=== PATIENT | female | born 1960 | race African-American/Black ===

== ENCOUNTER 2017-01-07 19:36 | Inpatient (IN) ==
[2017-01-07] MEDS ORDERED: ASPIRIN PO STA (19:59)
--- NOTE | 2017-01-07 20:22 | Diag Imaging Result Doc PS360 ---
EXAM: CHEST-2 VIEWS HISTORY: CP TECHNIQUE: PA and lateral chest COMMENT: Compared to 04/27/2016 the heart size is increased and there is ill-defined opacity in the lower lobes particularly in the retrocardiac region and costophrenic angle on the left. This was not present on the previous study. There is fluid in the major fissures. IMPRESSION: Cardiomegaly with mild pulmonary edema versus pneumonia and pleural effusions. Electronically signed by Zhou Colon 01/07/2017 8:20 PM
[2017-01-07 20:59] LABS: MANUAL DIFF NEEDED? NO
[2017-01-07 21:04] LABS: BASO% 0.5 % (0.0-0.8); EOS# 0.04 X1000 (0.0-0.7); EOS% 0.7 % (0.0-10.0); HEMATOCRIT 39.8 % (37.0-47.0); HEMOGLOBIN 13.2 g/dL (12.0-16.0); LYMPH% 23.6 % (20.5-51.1); MCH 29.8 PG (27-31); MCHC 33.2 g/dL (33-37); MCV 89.8 FL (81-99); MONO# 0.48 X1000 (0.11-0.59); MONO% 8.7 % (1.7-9.3); NEUT% 66.5 % (42.2-75.2); PLT 196 X1000 (130-400); RBC 4.43 XMIL (4.2-5.4)
[2017-01-07 21:11] LABS: INR 1.27; PROTIME 13.5 Seconds (9.2-11.7); PTT 26.5 Seconds (22.0-36.0)
[2017-01-07 21:26] LABS: AGAP 17; ALKALINE PHOSPHATASE 216 U/L (32-104); BUN 18 mg/dL (8-22); CALCIUM 9.8 mg/dL (8.8-10.2); CHLORIDE 100 mmol/L (98-107); CK PROFILE 91 U/L (24-173); COSMO 282; GOT 67 U/L (10-30); GPT 91 U/L (10-36); POTASSIUM 4.7 mmol/L (3.5-5.1); SODIUM 140 mmol/L (136-145); TCO2 23 mmol/L (25-35); TOTAL BILIRUBIN 0.93 mg/dL (0.20-1.00); TOTAL PROTEIN 7.1 g/dL (6.3-8.3)
--- NOTE | 2017-01-07 21:39 | ED EKG INTERP ---
This chart was entered by Maria E Winters Scribe, acting as scribe for West Ascencio MD. EKG Interpretation - EKG Time of EKG reading by physician:: 19:37 EKG Read and Signed by:: West Ascencio EKG Interpretation (*Must complete 3 of following elements*): Normal Rate: 116 Rhythm: Sinus Tachycardia ST Wave: non-specific ST changes Comments: Abnormal ECG, pOSSIBLE left atrial enlargement Attestation - Physician/ JODY Attestation Patient care was provided by Advanced Practice Provider:: No The physician spent face to face time with patient:: Yes Advanced Practice Provider documentation review:: Supervising physician onsite and consulted in the evaluation and care of this patient. The physician did have a face to face encounter with the patient. This chart was documented by the indicated scribe, (Maria E Winters Scribe) and accurately reflects the services I performed and decisions made by me, West Ascencio MD, as attested by the provider's signature.
--- NOTE | 2017-01-07 22:34 | PROVIDER DOCUMENTATION ---
This chart was entered by Maria E Winters Scribe, acting as scribe for West Ascencio MD. HPI-Respiratory General - General Chief Complaint: Shortness of Breath Stated Complaint: CP/SOB Time Seen by Provider: 01/07/17 21:35 Source: patient Allergies/Adverse Reactions: Patient Allergies Allergy/AdvReac Type Severity Reaction Status Date / Time No Known Allergies Allergy Verified 01/07/17 20:40 Home Medications: Home Medication List Medication Instructions Recorded Confirmed Last Taken Type Methocarbamol 750 mg PO PRN PRN 11/01/15 01/07/17 01/07/17 09:00 History Naproxen Sodium [Aleve] 220 mg PO PRN PRN 11/01/15 01/07/17 01/07/17 09:00 History Hydrocodone/Acetaminophen [[place] 1 each PO Q4H PRN PRN #14 tablet 11/02/1501/07 Unknown Rx 7.5-325 Tablet] Furosemide [Lasix] 10 mg PO PRN PRN 01/07/17 01/07/17 01/07/17 10:00 History Losartan [Cozaar] 25 mg PO BID 01/07/17 01/07/17 01/07/17 09:00 History Potassium Chloride [Klor-Con M20] 20 meq PO PRN PRN 01/07/17 01/07/17 01/07/17 10:00 History - History of Present Illness-Resp Nature of Presenting Problem: 56 Y/O F presents to ED with SOB. Pt states that she began having chest pain about 2 days ago with increased pressure today, Pt states that she has midsternal pain with lower back pain. Denies any hx of blood clots and a heart attack. Pt states SOB, States decreased swallowing. Pt states she was diagnosed with CHF, and is on lasiks. Pt has rt side leg marked swelling. Pt states she has pressure in her chest, states that she can't lay down because she can't breath, and has to sit up. Pt states 7.5/10 pain. and states that she has a sore throat, with productive cough,and is having decreased swallowing. Quality of Pain: reports: pressure Severity in ED: reports: moderate, severe Onset/Duration: reports: 3 days ago Timing: reports: still present Cough Quality/Degree: reports: moderate, productive cough Modifying Factors: improves with: sitting upright. worse with: lying down Associated Symptoms: reports: chest pain/soreness, cough, shortness of breath, sore throat. denies: facial pain, fever/chills, headache, sweaty Review of Systems - Adult - REVIEW OF SYSTEMS - ADULT Constitutional: denies: chills, fever Eyes: reports: no symptoms reported Ears, Nose, Mouth & Throat: reports: throat pain Cardiovascular: reports: chest pain, edema Respiratory: reports: cough, shortness of breath Gastrointestinal: denies: abdominal pain, diarrhea, nausea, vomiting Genitourinary: reports: no symptoms reported Musculoskeletal: reports: no symptoms reported Integumentary: reports: no symptoms reported Neurological: reports: no symptoms reported Psychiatric: reports: no symptoms reported Endocrine: reports: no symptoms reported Hematologic/Lymphatic: reports: no symptoms reported Allergic/Immunologic: reports: no symptoms reported All Other Systems: Reviewed and Negative Past History - Adult - PAST MEDICAL HISTORY-ADULT Review of Records: reports: Old Records Reviewed, Nursing Assessment Review, Medications Reviewed, Social history reviewed & non-contributory. - SOCIAL HISTORY Smoking: non-smoker Substance Use: none/never Alcohol Use Frequency: never Living Situation: family Physical Exam-General - PHYSICAL EXAM-ADULT Initial Vital Signs Reviewed: Yes - CONSTITUTIONAL General Appearance: appears well, alert, no apparent distress - EYES Eyes: pink conjunctivae - HEAD, EARS, NOSE, MOUTH & THROAT HENMT: normocephalic/atraumatic, moist mucous membranes, normal ENT inspection, TMs normal, pharynx normal - NECK Neck: full range of motion, supple, normal inspection - RESPIRATORY Respiratory: chest non-tender, lungs clear, normal breath sounds - CARDIOVASCULAR Cardiovascular: tachycardia - GASTROINTESTINAL (ABDOMEN) Abdominal Exam: non tender, soft - LYMPHATIC Lymphatic: no adenopathy - MUSCULOSKELETAL Back Exam: normal inspection, no CVA tenderness, no vertebral tenderness Extremity: non-tender, pedal edema (right leg) - SKIN Integumentary: normal color, normal turgor, warm/dry - NEUROLOGIC Neurologic: em physician II-XII nml as tested - PSYCHIATRIC Psych/Mental Status: normal mood/affect, normal thought content, normal thought process, oriented x 3 Progress - PLAN OF CARE/RESULTS Progress/Plan/Lab Results: Vital Signs - 8 hr 01/07/17 19:49 Temperature 97.9 F Pulse Rate 114 H Respiratory Rate 22 Blood Pressure 153/102 O2 Sat by Pulse Oximetry 100 Laboratory Results - last 24 hr 01/07/17 01/07/17 01/07/17 20:28 20:28 20:28 WBC 5.50 RBC 4.43 Hgb 13.2 Hct 39.8 MCV 89.8 MCH 29.8 MCHC 33.2 RDW Std Deviation 13.9 Plt Count 196 MPV 12.0 H Immature Gran % (Auto) 0.0 Neut % (Auto) 66.5 Lymph % (Auto) 23.6 Miller % (Auto) 8.7 Eos % (Auto) 0.7 Baso % (Auto) 0.5 Immature Gran # (Auto) 0.00 Neut # (Auto) 3.65 Lymph # (Auto) 1.30 Miller # (Auto) 0.48 Eos # (Auto) 0.04 Baso # (Auto) 0.03 PT INR PTT (Actin FS) D-Dimer 1.00 H Sodium 140 Potassium 4.7 Chloride 100 Carbon Dioxide 23 L Anion Gap 17 BUN 18 Creatinine 0.8 Estimated GFR/1.73 m2 > 60 BUN/Creatinine Ratio 23 Glucose 113 H Calculated Osmolality 282 Calcium 9.8 Magnesium 2.0 Total Bilirubin 0.93 AST 67 H ALT 91 H Alkaline Phosphatase 216 H Creatine Kinase 91 Troponin T Tts-B-Yykwffleqjc Pept Total Protein 7.1 Albumin 4.0 Globulin 3.1 Albumin/Globulin Ratio 1.3 01/07/17 01/07/17 01/07/17 20:28 20:28 20:28 WBC RBC Hgb Hct MCV MCH MCHC RDW Std Deviation Plt Count MPV Immature Gran % (Auto) Neut % (Auto) Lymph % (Auto) Miller % (Auto) Eos % (Auto) Baso % (Auto) Immature Gran # (Auto) Neut # (Auto) Lymph # (Auto) Miller # (Auto) Eos # (Auto) Baso # (Auto) PT 13.5 H INR 1.27 PTT (Actin FS) 26.5 D-Dimer Sodium Potassium Chloride Carbon Dioxide Anion Gap BUN Creatinine Estimated GFR/1.73 m2 BUN/Creatinine Ratio Glucose Calculated Osmolality Calcium Magnesium Total Bilirubin AST ALT Alkaline Phosphatase Creatine Kinase Troponin T < 0.010 Akb-F-Aqjostgnmtf Pept 54754 H Total Protein Albumin Globulin Albumin/Globulin Ratio Orders Category Date Time Status Cardiac Monitoring DIRECTED Care 01/07/17 19:59 Active CHEST-2 VIEWS [RAD] Stat Exams 01/07/17 19:59 Completed CTA [CT ANGIOGRM/PULMONARY ARTERIES] [CT] Stat Exams 01/07/17 21:39 Taken CBC WITH ELECTRONIC DIFF [HEME] Stat Lab 01/07/17 20:28 Completed CK PROFILE [SP CHEM] Stat Lab 01/07/17 20:28 Completed COMPREHENSIVE METABOLIC PANEL [CHEM] Stat Lab 01/07/17 20:28 Completed D-DIMER [CHEM] Stat Lab 01/07/17 20:28 Completed MAGNESIUM [CHEM] Stat Lab 01/07/17 20:28 Completed PRO B-NATRIURETIC PEPTIDE Stat Lab 01/07/17 20:28 Completed PROTIME WITH INR [COAG] Stat Lab 01/07/17 20:28 Completed PTT [COAG] Stat Lab 01/07/17 20:28 Completed TROPONIN T Stat Lab 01/07/17 20:28 Completed Aspirin Med 01/07/17 19:59 Discontinued 325 mg PO STAT STA Enoxaparin [Lovenox] Med 01/07/17 23:41 Discontinued 75 mg SUBQ NOW ONE EKG [EKG] Stat Ther 01/07/17 19:39 Ordered Result Diagrams: 01/07/17 20:28 01/07/17 20:28 - XRAY 1 XRAY Study: Chest Impression: Abnormal XRAY Interpretation: cardiomegaly with mild pulmonary edema versus pneumonia & pleural effusions - CT/MRI 1 CT Study: Angiogram Impression: Normal (1. no pulmonary embolism 2. left lower lobe atelectasis with possible early pneumonia 3. small left and very small right pleural effusions) CT Results: See Notes - CONSULTS/PCP/HOSPITALIST Notification #1 *Consult/PCP/Hospitalist*: Time Discussed: 00:22 Reason/Comments: Admit Consult Disposition: Admit (Admit Accepted) Departure - Departure Date of Disposition Decision: 01/08/17 Time of Disposition Decision: 00:27 DIAGNOSIS: Elevated d-dimer Chest pain Qualifiers: Chest pain type: unspecified Qualified Code(s): R07.9 - Chest pain, unspecified Disposition: ADMITTED INPATIENT 09 Certified Medical Emergency: Emergent Condition: Stable Referrals and Follow-Ups: Yoav Marsh MD [Primary Care Provider] - - Critical Care Note This patient required my direct & personal management of CC.: No Attestation - Physician/ JODY Attestation Patient care was provided by Advanced Practice Provider:: No The physician spent face to face time with patient:: Yes Advanced Practice Provider documentation review:: Supervising physician onsite and consulted in the evaluation and care of this patient. The physician did have a face to face encounter with the patient. This chart was documented by the indicated scribe, (Maria E Winters Scribe) and accurately reflects the services I performed and decisions made by me, West Ascencio MD, as attested by the provider's signature.
[2017-01-07] MEDS ORDERED: LOVENOX SUBQ ONE (23:41)
[2017-01-08] MEDS ORDERED: LASIX IV ONE (00:59)
--- NOTE | 2017-01-08 01:49 | HISTORY AND PHYSICAL ---
REASON FOR ADMISSION: Three week history of increasing dyspnea and two day history of leg swelling and chest pain. HISTORY OF PRESENT ILLNESS: Ms. Jesusita Soria is a 56-year-old lady with past medical history of breast cancer status post bilateral mastectomy and hypertension. MUGA scan was last done in anticipation I believe for chemotherapy and was found to be 17%. She reports that she is followed by Dr. Jade who recently stated her, i.e. 2 weeks ago, on Lasix p.r.n. 20 mg daily. She said initially she got good results from this since it helped decrease her ongoing lower extremity swelling. However, over the last 1 week, this leg swelling has returned. However, what has been bothering her the most is that she has been having a 3 week history of worsening dyspnea initially on exertion but now at rest. She could walk 50 feet 3 weeks ago, but now she can barely go up to 20 feet and becomes profoundly short of breath. She also volunteers a history of PND and orthopnea along with a 2 day history of coughing which is nonproductive. No fever. No chills. She also reports complaints of easy satiety with even small amounts of food. She has a subjective sensation of bloating and abdominal swelling. She states the chest pain she has emanates from her back and radiates to her chest and lasts a few minutes, not related to any activity. The patient does not ingest canned food or drink soda but does take Aleve twice a day for the last few days for back pain. REVIEW OF SYSTEMS: The patient denies any constipation or diarrhea. No genitourinary complaints. No arthralgias or rash. No polyuria or polydipsia. No focal deficits appreciated. Positive findings per HPI. ALLERGIES: No known allergies. MEDICATIONS: 1. Losartan 25 mg daily. 2. Lasix 20 mg daily p.r.n. 3. Aleve 220 mg b.i.d. p.r.n. 4. Methocarbamol 750 mg b.i.d. p.r.n. PAST SURGICAL HISTORY: 1. Hysterectomy. 2. Bilateral mastectomy. 3. [employer] placement. SOCIAL HISTORY: She does not smoke. Drinks alcohol very occasionally, no more than once a month. No history of drug abuse. She is . FAMILY HISTORY: Significant for hypertension but no heart disease, type 2 diabetes, or breast cancer. LABORATORY DATA: EKG showed normal sinus rhythm with T wave inversions in the lateral leads, left axis deviation, left atrial enlargement, no gross ST-T wave changes consistent with acute injury pattern or myocardial ischemia. White count 5000, hemoglobin and hematocrit 13 and 39, platelets 196 with normal differential. BUN 18, creatinine 0.8, glucose 113, AST 67, ALT 91, alkaline phosphatase 210. Troponin negative. CK is normal. ProBNP 10,000. PT and PTT normal. D-dimer 1.0. Angiogram was negative for any PE. Chest x-ray showed mild increased vascular congestion. PHYSICAL EXAMINATION: VITAL SIGNS: Heart rate 114, temperature is 97.9, respiratory rate 20, blood pressure 153/102, 100% on 2 L. GENERAL: She is a pleasant middle-aged female woman who is not in acute distress. She is alert and oriented to person, place, and time with normal mood and affect. HEENT: Head is normocephalic, atraumatic. Eyes: PHILIP, EOMI. She is anicteric, not pale. ENT exam is grossly normal. NECK: Supple. No JVD or positive hepatojugular reflux. No bruit. No thyromegaly. CHEST: Bibasilar crepitations noted. No wheezes but decreased air entry in the bases. CARDIOVASCULAR: First and second heart sounds heard. No gallops, murmurs, rubs. Rhythm is regular. ABDOMEN: Slightly protuberant, soft, nontender. No masses or megaly. Bowel sounds are hypoactive. RECTAL: Not done at this time. EXTREMITIES: She has 1+ pedal edema to the midshin of both lower extremities. Pulses distally in all extremities are intact with good volume and symmetry. NEUROLOGICAL: No focal deficits appreciated. SKIN: Intact. No breakdown or erythema. MUSCULAR EXAM: Grossly normal. ASSESSMENT: 1. Acute systolic heart failure. 2. Passive venous congestion. 3. Hypertensive heart disease. PLAN: 1. At this time, the patient will be admitted and diuresed. 2. Consult Dr. Jade, sales and retail management recruiter, to see her. 3. Suspect she will need optimization of her ARB and I have taken the liberty of starting her on Aldactone and a very low dose beta-blockers which can be started at a much later date when she is out of the acute phase of her illness. 4. No particular inciting etiology for her exacerbation except for the poorly controlled hypertension. 5. For now, I will hold off ordering an echocardiogram being that she had a MUGA scan done in December. Will defer to Dr. Jade if he needs one done. Not sure if the patient's cardiomyopathy may be related to underlying exposure to chemotherapy or radiation therapy. This cannot be accurately determined from my history. cc: Girma Ontiveros MD
[2017-01-08] MEDS ORDERED: ZOFRAN IV PRN (02:03)
[2017-01-08] MEDS ORDERED: NORCO-7.5 PO PRN (02:03)
[2017-01-08] MEDS ORDERED: LASIX PO SCH (02:03)
[2017-01-08] MEDS ORDERED: TYLENOL PO PRN (02:03)
--- NOTE | 2017-01-08 05:47 | EKG Report ---
Test Performed on : 01/07/2017 7:37:20 PM Test Reason : cp Blood Pressure : / mmHG Vent. Rate : 116 BPM Atrial Rate : 116 BPM P-R Int : 142 ms QRS Dur : 074 ms QT Int : 330 ms P-R-T Axes : 055 001 122 degrees QTc Int : 458 ms Sinus tachycardia. Possible Left atrial enlargement Nonspecific T wave abnormality Abnormal ECG When compared with ECG of 27-APR-2016 09:53, Vent. rate has increased BY 42 BPM Unconfirmed Result
[2017-01-08 06:56] LABS: AGAP 16; BUN 17 mg/dL (8-22); CALCIUM 9.6 mg/dL (8.8-10.2); CHLORIDE 101 mmol/L (98-107); COSMO 289; POTASSIUM 3.7 mmol/L (3.5-5.1); SODIUM 145 mmol/L (136-145); TCO2 28 mmol/L (25-35)
--- NOTE | 2017-01-08 07:26 | Diag Imaging Result Doc PS360 ---
CT ANGIOGRM/PULMONARY ARTERIES - 01/07/2017 INDICATION: cp,tachycardia,elevated d-dimer TECHNIQUE: Axial CT images were obtained after administering intravenous contrast. Coronal MIP images were generated. A CT dose reduction protocol was used. COMPARISON: None FINDINGS: There is no pulmonary embolism. There is moderately severe cardiomegaly. There are trace pleural effusions. There is some patchy groundglass central opacity compatible with pulmonary edema. There is also some infiltrate in the left lower lobe. There is reflux into the IVC indicating right heart dysfunction. There is a right central line present as well as breast implants. There are moderate degenerative changes of the spine. No acute or suspicious bony lesion. IMPRESSION: 1. Negative for pulmonary embolism. 2. Cardiomegaly, pulmonary edema, pleural effusions. 3. Left lower lobe infiltrate suggesting pneumonia or edema. Electronically signed by Adam Briceño 01/08/2017 7:23 AM
[2017-01-08] MEDS: KLOR-CON PO SCH (10:59)
[2017-01-08] MEDS: COZAAR PO SCH ×2 (10:59→20:48)
[2017-01-08] MEDS: COREG PO SCH ×2 (11:00→11:09)
[2017-01-08] MEDS: ALDACTONE PO SCH (11:00)
--- NOTE | 2017-01-08 12:11 | CONSULTATION ---
DATE OF CONSULTATION: 01/08/2017 IMPRESSION: 1. Acute on chronic systolic heart failure, biventricular. 2. Severe nonischemic cardiomyopathy following chemotherapy for breast cancer. 3. Breast cancer involving the right breast. Patient is status post bilateral mastectomy and lymph node dissection on the right followed by chemotherapy. The patient felt to be in remission and has already had reconstructive breast surgery. 4. Hypertension. RECOMMENDATIONS: 1. Diurese with intravenous Lasix. 2. Switch Coreg to metoprolol given tendency for lower blood pressure with the former. 3. Continue losartan as tolerated. 4. Patient counseled regarding need for restriction of salt intake as well as daily weights and frequent contact with our office. HISTORY: This 56-year-old female with past history of severe nonischemic cardiomyopathy following chemotherapy for breast cancer, breast cancer and bilateral mastectomy and right axillary lymph node dissection, and hypertension was admitted with progressive dyspnea and orthopnea as well as peripheral swelling. She was found to have congestive heart failure and for this reason, Cardiology consultation was requested. She is followed by Dr. Jade in Cardiology clinic. She has intermittently had some tendency for lower extremity edema over the previous few weeks. Over the past 2-3 day she started to have progressive exertional dyspnea and orthopnea as well as worsening edema. She has had no chest pain. Previous noninvasive evaluations for coronary disease have been negative. Left ventricular ejection fraction has been severely reduced and last ejection fraction was 17%. She has not been consistent restricting her sodium intake. She recalls having some [place] food over this past weekend. She has also had tendency for abdominal bloating and anorexia simultaneous with her tendency for swelling. PAST MEDICAL HISTORY: 1. Severe nonischemic cardiomyopathy following chemotherapy. 2. Breast cancer. Patient is status post bilateral mastectomy and right axillary lymph node dissection followed by chemotherapy. She is felt to be in remission and has already had bilateral reconstructive breast surgery. 3. Hypertension. PAST SURGICAL HISTORY: Also includes hysterectomy. MEDICATIONS PRIOR TO ADMISSION: As listed. SOCIAL HISTORY: She is . She lives at home. She does not smoke. She does not use alcohol. She has applied for and gotten disability with social security on a cardiac basis. FAMILY HISTORY: Positive for hypertension and diabetes with negative for premature coronary disease. REVIEW OF SYSTEMS: Pulmonary: Noteworthy for exertional dyspnea and orthopnea. Gastrointestinal: Noteworthy for anorexia. Has some abdominal bloating paralleling her tendency for peripheral swelling. Constitutional: Noteworthy for weight gain but otherwise negative. Remained of review of systems negative/noncontributory with 14 total systems reviewed. PHYSICAL EXAMINATION: General: This is a pleasant, middle-aged -[place] female in no distress. Blood pressure 139/98. Heart rate 102 and regular. HEENT: Extraocular movements intact. Mucous membranes are moist. Neck: Supple. Jugular distention is evident to the angle of the jaw with patient sitting up about 70 degrees. Carotid bruits cannot be appreciated. Chest: Auscultation of the chest reveals bibasilar inspiratory crackles. Cardiac Exam: Reveals a regular tachycardia without appreciable gallop. There is a soft systolic murmur at the left sternal border. Abdomen: Soft, nontender. Bowel sounds are normal. Extremities: Demonstrate only very mild edema following diuresis thus far. Neurologic Exam: Reveals her to be alert, fully oriented. Speech is fluent. Moves all 4 extremities equally well. Skin: Warm dry. Psychiatric: Reveals her mood to be appropriate. ECG demonstrates sinus tachycardia, left atrial abnormality and nonspecific T-wave abnormality. cc: Andrzej Aggarwal MD
[2017-01-08] MEDS: LASIX IV SCH (20:48)
[2017-01-09] MEDS: LOVENOX SUBQ SCH (06:26)
[2017-01-09 06:44] LABS: MANUAL DIFF NEEDED? NO
[2017-01-09 06:47] LABS: BASO% 0.6 % (0.0-0.8); EOS% 2.1 % (0.0-10.0); HEMATOCRIT 40.6 % (37.0-47.0); HEMOGLOBIN 13.3 g/dL (12.0-16.0); LYMPH# 1.21 X1000 (1.2-3.4); LYMPH% 25.3 % (20.5-51.1); MCH 29.3 PG (27-31); MCHC 32.8 g/dL (33-37); MCV 89.4 FL (81-99); MONO# 0.39 X1000 (0.11-0.59); MONO% 8.1 % (1.7-9.3); MPV 11.6 FL (7.4-10.4); NEUT% 63.9 % (42.2-75.2); PLT 187 X1000 (130-400); RBC 4.54 XMIL (4.2-5.4)
--- NOTE | 2017-01-09 07:21 | EKG Report ---
Test Performed on : 01/09/2017 06:25:52 AM Test Reason : dyspnea Blood Pressure : / mmHG Vent. Rate : 093 BPM Atrial Rate : 093 BPM P-R Int : 150 ms QRS Dur : 082 ms QT Int : 378 ms P-R-T Axes : 044 -05 076 degrees QTc Int : 469 ms Normal sinus rhythm. Left atrial enlargement Left ventricular hypertrophy Nonspecific T wave abnormality Prolonged QT Abnormal ECG When compared with ECG of 07-JAN-2017 19:37, No significant change was found Confirmed by Reagan Hinds MD ([id number]) on 01/09/2017 9:34:35 PM
[2017-01-09 07:32] LABS: AGAP 14; BUN 20 mg/dL (8-22); CALCIUM 9.1 mg/dL (8.8-10.2); CHLORIDE 100 mmol/L (98-107); COSMO 287; MAGNESIUM 1.8 mg/dL (1.5-2.7); POTASSIUM 3.7 mmol/L (3.5-5.1); SODIUM 143 mmol/L (136-145); TCO2 29 mmol/L (25-35)
--- NOTE | 2017-01-09 08:15 | Diag Imaging Result Doc PS360 ---
EXAM: CHEST-2 VIEWS HISTORY: Heart Failure TECHNIQUE: Two views of the chest COMMENT: There is blunting of the left costophrenic angle. Compared to the previous study of 01/07/2017 there is slight clearing of the left lower lobe and of the right lower lobe. IMPRESSION: Improved bibasilar atelectasis. Left pleural effusion. Borderline cardiomegaly. Electronically signed by Zhou Colon 01/09/2017 8:13 AM
[2017-01-09] MEDS: KLOR-CON PO SCH (09:02)
[2017-01-09] MEDS: ALDACTONE PO SCH (09:02)
[2017-01-09] MEDS: LASIX IV SCH ×2 (09:03→20:33)
[2017-01-09] MEDS: TOPROL XL PO SCH (09:03)
[2017-01-09] MEDS: COZAAR PO SCH ×2 (09:03→20:32)
--- NOTE | 2017-01-09 15:46 | PROGRESS NOTE ---
DATE: 01/09/2017 SUBJECTIVE: Patient continues without dyspnea on supplemental oxygen per nasal cannula at 2 L/minute. There has been no chest pain. OBJECTIVE: Vital Signs: Blood pressure 114/65 with heart rate of 103, oxygen saturation 99% on nasal cannula oxygen at 2 L. Jugular venous distention is present consistent with moderately elevated central venous pressure. Chest is clear to auscultation. Cardiac reveals a regular rate and rhythm without appreciable murmur or gallop. There is no evidence of peripheral edema. LABORATORY DATA: Demonstrates BUN of 20, creatinine 0.7, potassium 3.7. IMPRESSION: 1. Izpvd-up-[id number] systolic heart failure, biventricular. The patient is improving with diuresis but still manifests some residual signs of right-sided congestive heart failure. 2. Severe nonischemic cardiomyopathy following chemotherapy. 3. Breast cancer involving the right breast with previous bilateral mastectomy and right-sided lymph node dissection. 4. Hypertension. RECOMMENDATIONS: Continue to diurese with intravenous Lasix. Anticipate patient potentially nearing euvolemic state in the next 24 hours. cc: Andrzej Aggarwal MD
[2017-01-10 06:49] LABS: AGAP 12; BUN 23 mg/dL (8-22); CALCIUM 9.1 mg/dL (8.8-10.2); CHLORIDE 101 mmol/L (98-107); COSMO 286; POTASSIUM 3.9 mmol/L (3.5-5.1); SODIUM 142 mmol/L (136-145); TCO2 29 mmol/L (25-35)
[2017-01-10 07:50] VITALS: BP 109/84
[2017-01-10] MEDS: KLOR-CON PO SCH (10:06)
[2017-01-10] MEDS: COZAAR PO SCH (10:06)
[2017-01-10] MEDS: ALDACTONE PO SCH (10:06)
[2017-01-10] MEDS: TOPROL XL PO SCH (10:07)
[2017-01-10] MEDS: LOVENOX SUBQ SCH (10:07)
[2017-01-10] MEDS: LASIX IV SCH (10:07)
[2017-01-10] MEDS ORDERED: LASIX PO SCH (21:00)
--- NOTE | 2017-01-11 14:26 | DISCHARGE SUMMARY ---
ADMISSION DATE: 01/07/2017 DISCHARGE DATE: 01/10/2017 CONSULTATIONS: Dr. Andrzej Aggarwal with Cardiology. PERTINENT PROCEDURES: 1. Pulmonary arteriogram. Negative for PE, cardiomegaly, pulmonary edema, pleural effusions, left lower lobe infiltrate suggesting pneumonia or edema. 2. Chest x-ray showed cardiomegaly with mild pulmonary edema versus pneumonia and pleural effusion. 3. Followup chest x-ray on 01/09 showed improved bibasilar atelectasis, left pleural effusion, borderline cardiomegaly. DISCHARGE DIAGNOSES: 1. Acute on chronic systolic heart failure biventricular improved with IV diuresis. The patient will continue on p.o. Lasix, losartan and switch from Coreg to metoprolol and will continue on Aldactone. She has been educated on a low-sodium diet as well as following closely with Cardiology and monitoring of her weights. She is stable for discharge home today. 2. Severe nonischemic cardiomyopathy following her chemotherapy. 3. Breast cancer involving the right breast status post bilateral mastectomy and lymph node dissection on the right following chemotherapy. She is in remission and has also had reconstructive breast surgery. 4. Hypertension. Stable. HOSPITAL COURSE: Ms. Soria is a 56-year-old, female who carries a past medical history of breast cancer, status post bilateral mastectomy with lymph node resection on the right as well as reconstructive surgery followed up with chemotherapy that caused nonischemic cardiomyopathy, hypertension, recent MUGA scan was found to be 70%. She is followed by Dr. Jade in the clinic who placed her on Lasix p.r.n. 20 mg daily. She states she initially had good results and decreased her ongoing lower extremity swelling. However over the last week her leg swelling had returned as well as having a 3-week history of worsening dyspnea initially on exertion but now at rest. She could walk about 50 feet three weeks ago but now she can barely go 20 feet before she becomes profoundly short of breath. She also reports PND and orthopnea with a 2-day history of coughing that is nonproductive. No fever. No chills. Complaints of satiety with even small amounts of food, sensation of bloating and abdominal swelling. She states she does not ingest canned food or drink soda but she had taken Aleve twice a day for the last few days for back pain and she had also disclosed to Cardiology that she had some [place] food over the past weekend. Laboratory data in the ED showed a white count of 5000, hemoglobin of 13 and 39, BUN of 18, creatinine 0.8, blood glucose of 113. Troponins were negative. ProBNP was 10,000. D- dimer was 1. Pulmonary arteriogram was negative for PE but did show pulmonary edema and questionable infiltrates. The patient was admitted for acute systolic heart failure. She was diuresed. Consult to Cardiology. Started her on Aldactone as well as a low- dose beta jodie. Cardiology agreed with diuresis with IV Lasix. Switched from Coreg to metoprolol. Continued her losartan and counseled her regarding the need for restriction of salt intake as well as daily weights and frequent contact with their office. Ms. Soria diuresed well. She was off her supplemental O2. I do not have any proper I's and O's. I have some intake and just the amount of times that she has voided but nothing has been measured on her output. She is being discharged back home today. VITAL SIGNS: Temperature is 97.6 degrees, heart rate 95, respirations 18, blood pressure 109/84. O2 is 99% on room air. DISCHARGE DIET: Healthy heart. DISCHARGE MEDICATIONS: 1. Lasix 20 mg p.o. b.i.d. 2. [place] 7.5/325, 1 each p.o. q.4 hours p.r.n. 3. Cozaar 25 mg p.o. b.i.d. 4. Methocarbamol 750 mg p.o. p.r.n. 5. Toprol-XL 25 mg p.o. daily. 6. Aldactone 12.5 mg p.o. daily. FOLLOWUP: Ms. Soria is being discharged back home. She will need to follow up with her primary care physician, Dr. Yoav Marsh in [address] Jade in 1 week. She is to take all medications as prescribed as well as monitor her weights daily and restrict her sodium intake. She can return to the ED for any worsening of symptoms. Dictated by MICHEAL Barraza for Leonel Shoemaker MD cc: Leonel Shoemaker MD Time spent for discharge 32 minutes MTDD
== END 2017-01-10 14:29 | disposition home or self-care (01) ==
LOC: ED 19:36 → SUATTDRO 01-08 01:48 → 3N 01-08 01:48
PROVIDERS: ATTEND Internal Medicine

== ENCOUNTER 2018-10-30 01:35 | Inpatient (IN) ==
[2018-10-30 04:03] LABS: INR 1.02; PROTIME 14.2 Seconds (11.0-16.0); PTT 37.4 Seconds (22.3-41.8)
--- NOTE | 2018-10-30 04:04 | PROVIDER DOCUMENTATION ---
HPI-General Adult - General Chief Complaint: General Adult Stated Complaint: CHEST PAIN/HISTORY Time Seen by Provider: 10/30/18 03:20 Source: patient, family Allergies/Adverse Reactions: Patient Allergies Allergy/AdvReac Type Severity Reaction Status Date / Time adhesive tape Allergy Intermediate blisters Verified 10/30/18 06:07 skin Home Medications: Home Medication List Medication Instructions Recorded Confirmed Last Taken Type Hydrocodone/Acetaminophen [[place] 1 each PO Q4H PRN PRN #14 tablet 11/02/15 10/30/18 2 Weeks Ago Rx 7.5-325 Tablet] ~10/16/18 Losartan [Cozaar] 25 mg PO BID 01/07/17 10/30/18 1 Week Ago History ~10/23/18 Metoprolol Succinate E.r. [Toprol 25 mg PO DAILY #60 tablet 01/10/17 10/30/18 1 Week Ago Rx Xl] ~10/23/18 Cyclobenzaprine HCl [Flexeril] 5 mg PO Q6H PRN PRN 10/30/18 10/30/18 10/29/18 History Spironolactone [Aldactone] 12.5 mg PO DAILY PRN PRN 10/30/18 10/30/18 Unknown History - History of Present Illness -Gen Adult Nature of Presenting Problems: began having intermittent sharp, pressure CP, that radiated to back on Saturday after receiving chemo for breast CA with lung mets. Nothing causes onset, no makes it worse, relieved when takes muscle relaxers, No NATALIA, no nausea. Last pm, had onset of bleeding L post upper gum, but no toothache. No fever. Receiving Taxotere and avastin Location of Pain/Injury: reports: chest Review of Systems - Adult - REVIEW OF SYSTEMS - ADULT Constitutional: reports: no symptoms reported Eyes: reports: no symptoms reported Ears, Nose, Mouth & Throat: reports: see HPI Cardiovascular: reports: see HPI Respiratory: reports: no symptoms reported Gastrointestinal: reports: no symptoms reported Genitourinary: reports: no symptoms reported Musculoskeletal: reports: no symptoms reported Integumentary: reports: no symptoms reported Neurological: reports: no symptoms reported Psychiatric: reports: no symptoms reported Endocrine: reports: no symptoms reported Hematologic/Lymphatic: reports: no symptoms reported Allergic/Immunologic: reports: no symptoms reported Past History - Adult - PAST MEDICAL HISTORY-ADULT Review of Records: reports: Medications Reviewed Major Childhood Illnesses: reports: denies history Cardiovascular: reports: HTN Respiratory: reports: other (lung CA) Gastrointestinal: reports: denies history Musculoskeletal: reports: denies history Neurological: reports: denies history Psychiatric: reports: denies history Endocrine/Immune: reports: denies history Additional History: Breast CA Physical Exam-General - PHYSICAL EXAM-ADULT Initial Vital Signs Reviewed: Yes - CONSTITUTIONAL General Appearance: appears well, alert, no apparent distress - EYES Eyes: PERRL/EOMI, pink conjunctivae - HEAD, EARS, NOSE, MOUTH & THROAT HENMT: other (bleeding from gum tooth # 15) - NECK Neck: non-tender, full range of motion, supple, normal inspection - RESPIRATORY Respiratory: chest non-tender, lungs clear, normal breath sounds - CARDIOVASCULAR Cardiovascular: normal peripheral pulses, regular rate, rhythm, no edema - GASTROINTESTINAL (ABDOMEN) Abdominal Exam: non tender, soft - MUSCULOSKELETAL Back Exam: normal inspection, no CVA tenderness, no vertebral tenderness, decreased range of motion Extremity: normal range of motion, non-tender, normal inspection - SKIN Integumentary: normal color, normal turgor, warm/dry - NEUROLOGIC 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, grossly normal, no motor/sensory deficits - PSYCHIATRIC Psych/Mental Status: normal mood/affect, normal thought content, normal thought process, oriented x 3 Progress - PLAN OF CARE/RESULTS Progress/Plan/Lab Results: Vital Signs - 8 hr 10/30/18 01:35 Temperature 98.6 F Pulse Rate 109 H Respiratory Rate 19 Blood Pressure 142/77 O2 Sat by Pulse Oximetry 96 Orders Category Date Time Status CBC WITH DIFF [HEME] Stat Lab 10/30/18 03:35 Results COMPREHENSIVE METABOLIC PANEL [CHEM] Stat Lab 10/30/18 03:35 Received PT [PROTIME WITH INR] [COAG] Stat Lab 10/30/18 03:35 Received PTT [COAG] Stat Lab 10/30/18 03:35 Received Result Diagrams: 10/30/18 03:35 10/30/18 03:35 - REASSESSMENT Reassessment #1 Time Reassessed: 06:42 ( has gone home, retrieved her labs from 10/21. At that time WBC was 11.2) - EKG 1 Time of EKG reading by physician:: 01:47 EKG Read and Signed by:: Dawood Guzman EKG Interpretation (*Must complete 3 of following elements*): Abnormal Rate: 112 Rhythm: NSR QRS: LVH ST Wave: non-specific ST changes - XRAY 1 XRAY Study: Chest Impression: Normal - CONSULTS/PCP/HOSPITALIST Notification #1 *Consult/PCP/Hospitalist*: [place] Time Discussed: 07:32 Departure - Departure Date of Disposition Decision: 10/30/18 Time of Disposition Decision: 07:32 DIAGNOSIS: Leukocytosis Qualifiers: Leukocytosis type: unspecified Qualified Code(s): D72.829 - Elevated white blood cell count, unspecified Chest pain Qualifiers: Chest pain type: unspecified Qualified Code(s): R07.9 - Chest pain, unspecified Disposition: ADMITTED INPATIENT 09 Certified Medical Emergency: Emergent Condition: Good Referrals and Follow-Ups: Malcolm Hinds MD [Primary Care Provider] - - Critical Care Note This patient required my direct & personal management of CC.: No Attestation - Physician/ JODY Attestation Patient care was provided by Advanced Practice Provider:: No The physician spent face to face time with patient:: Yes Advanced Practice Provider documentation review:: Supervising physician onsite and consulted in the evaluation and care of this patient. The physician did have a face to face encounter with the patient.
[2018-10-30 04:12] LABS: AGAP 14; ALB/GLOB RATIO 1.1; ALBUMIN 4.2 g/dL (3.5-5.0); ALKALINE PHOSPHATASE 329 U/L (32-104); BUN 10 mg/dL (8-22); CALCIUM 11.1 mg/dL (8.8-10.2); CHLORIDE 101 mmol/L (98-107); COSMO 283; CREATININE 0.6 mg/dL (0.5-0.9); ESTIMATED GFR > 60; GLUCOSE 113 mg/dL (70-104); GOT 28 U/L (10-30); GPT 38 U/L (10-36); POTASSIUM 3.8 mmol/L (3.5-5.1); SODIUM 142 mmol/L (136-145); TCO2 27 mmol/L (25-35); TOTAL BILIRUBIN 0.18 mg/dL (0.20-1.00); TOTAL PROTEIN 8.1 g/dL (6.3-8.3)
[2018-10-30 04:22] LABS: BASO# 0.09 X1000 (0.0-0.2); BASO% 0.2 % (0.0-0.8); EOS# 0.08 X1000 (0.0-0.7); EOS% 0.2 % (0.0-10.0); HEMATOCRIT 35.6 % (37.0-47.0); HEMOGLOBIN 11.1 g/dL (12.0-16.0); IMM GRAN# 0.76 X1000 (0.0-0.04); IMM GRAN% 1.8 % (0.0-0.5); LYMPH# 3.11 X1000 (1.2-3.4); LYMPH% 7.5 % (20.5-51.1); MCH 28.7 PG (27-31); MCHC 31.2 g/dL (33-37); MONO# 2.37 X1000 (0.11-0.59); MONO% 5.7 % (1.7-9.3); MPV 9.9 FL (7.4-10.4); NEUT# 35.24 X1000 (1.4-6.5); NEUT% 84.6 % (42.2-75.2); PLT 289 X1000 (130-400); RBC 3.87 XMIL (4.2-5.4); RDW 15.3 % (11.5-14.5); WBC 41.65 X1000 (4.8-10.8)
[2018-10-30 04:48] LABS: LYMPHS 8 % (21-51); MONO 7 % (1-9); SEGS 85 % (42-75)
[2018-10-30] MEDS ORDERED: EMLA CREAM ONE (06:00)
--- NOTE | 2018-10-30 07:24 | Diag Imaging Result Doc PS360 ---
EXAM: CHEST-2 VIEWS INDICATION: cp TECHNIQUE: 2 views COMPARISON: 07/21/2018 FINDINGS: The right chest port is in stable position. There is contrast media in the colon from a prior study. The lungs are grossly clear. There is no discrete pleural fluid collection or pneumothorax. The cardiomediastinal silhouette and central vasculature are grossly unremarkable. IMPRESSION: No evidence of acute pathology by plain radiograph. Electronically signed by Isra Stevenson 10/30/2018 7:21 AM
--- NOTE | 2018-10-30 08:00 | EKG Report ---
Test Performed on : 10/30/2018 01:42:03 AM Test Reason : ED. NOEKG ORDER FOR MUSE Blood Pressure : / mmHG Vent. Rate : 112 BPM Atrial Rate : 112 BPM P-R Int : 162 ms QRS Dur : 084 ms QT Int : 358 ms P-R-T Axes : 049 -07 121 degrees QTc Int : 488 ms Sinus tachycardia. Possible Left atrial enlargement Left ventricular hypertrophy Nonspecific ST and T wave abnormality Abnormal ECG When compared with ECG of 09-JAN-2017 06:25, No significant change was found Unconfirmed Result
[2018-10-30 08:08] LABS: URINE SOURCE CLEAN CATCH
[2018-10-30 08:10] LABS: BILIRUBIN URINE NEGATIVE (NEGATIVE); BLOOD URINE NEGATIVE (NEGATIVE); COLOR YELLOW; GLUCOSE URINE NEGATIVE (NEGATIVE); KETONE URINE NEGATIVE (NEGATIVE); LEUKOCYTES URINE NEGATIVE (NEGATIVE); NITRITE URINE NEGATIVE (NEGATIVE); PH URINE 6.5; PROTEIN URINE NEGATIVE (NEGATIVE); SP GRAVITY URINE 1.012; TURBIDITY URINE CLEAR (CLEAR); UROBILINOGEN URINE NORMAL (NORMAL)
[2018-10-30 08:12] LABS: UR EPITHELIAL CELLS <10 /HPF (<10); URINE BACTERIA NEGATIVE /HPF; URINE RBC <10 /HPF (<10); URINE WBC <10 /HPF (<10)
[2018-10-30] MEDS ORDERED: FLEXERIL PO PRN (09:04)
[2018-10-30] MEDS ORDERED: ZOFRAN IV PRN (09:04)
--- NOTE | 2018-10-30 09:29 | HISTORY AND PHYSICAL ---
PRIMARY CARE PROVIDER: Dr. Malcolm Hinds. ONCOLOGIST: Dr. Jesse Dietz. CHIEF COMPLAINT: Chest pain and gum bleeding. HISTORY OF PRESENT ILLNESS: Ms. Soria is a pleasant 56-year-old female, who carries a past medical history of breast cancer status post bilateral mastectomy, who recently found out in July or August she was diagnosed with metastatic lung cancer. She was started back on chemo I believe in September. She finished her first cycle and just wrapped up her second cycle on October 21. She received a Neulasta shot. She has reported an epigastric type chest pain that radiates to her back that has been intermittent since she was started back on chemo. The only thing that makes it go away is a Goody Powder and muscle relaxer. She had 1 episode where it radiated up into her right neck and into her right arm that she felt like something was going on with her port at that time. She does have some shortness of breath with it, but denied any dizziness, nausea or vomiting. She also reported some right lower extremity pain. She knows she has neuropathy in that leg. However, she states this is a cramping type pain that has to be relieved with walking around. Constipation. Occasional headache. She denies any fever, chills. Intermittent cough that can be anywhere from clean to greenish sputum. She also reported last night an episode of bleeding gum that was stopped in the ED and is currently packed around tooth #15. Workup in the ED revealed an elevated white count of 41 with a normal lactate. Her urinalysis is clear. Her chest x-ray was clear. Blood cultures have been obtained. We have no obvious source of infection. We did check a D-dimer; it is slightly elevated. Given her chest pain and right leg pain, we will go ahead and check a CT of the chest, as well as venous Dopplers and a right upper extremity Doppler to rule out any DVT or PE, and we will prophylactically start her on cefepime, and consult Dr. Dietz and place her in a private room. REVIEW OF SYSTEMS: Twelve-point review of systems completely negative, except for those mentioned in HPI. PAST MEDICAL HISTORY: 1. Breast cancer status post bilateral mastectomy. 2. Hypertension. 3. Newly diagnosed with metastatic lung cancer. 4. Acute on chronic systolic heart failure, biventricular. 5. Severe nonischemic cardiomyopathy following chemotherapy for breast cancer. PAST SURGICAL HISTORY: 1. Bilateral mastectomy. 2. Hysterectomy. 3. Right port placement. SOCIAL HISTORY: The patient is . No tobacco, alcohol or illicit drug use. FAMILY HISTORY: Significant for hypertension. ALLERGIES: Adhesive tape. HOME MEDICATIONS: 1. Flexeril 5 mg p.o. q. 6 hours p.r.n. 2. [place] 7.5/325 one each p.o. q. 4 hours p.r.n. 3. Cozaar 25 mg p.o. b.i.d. 4. Toprol-XL 25 mg p.o. daily. 5. Aldactone 12.5 mg p.o. daily p.r.n. swelling. PHYSICAL EXAMINATION: VITAL SIGNS: Temperature is 98.8 degrees, heart rate 99, respirations 20, blood pressure 141/88, O2 is 96% on room air. GENERAL: Ms. Soria is a pleasant 58-year-old female, who is sitting up in the stretcher in no acute distress. HEENT: Atraumatic, normocephalic. PERRL. NECK: Supple. Trachea midline. She does have packing in place on her upper right side of her jaw around tooth #15. CARDIOVASCULAR: S1, S2 appreciated. No murmurs, gallops, or rubs noted. RESPIRATORY: Lung sounds clear bilaterally. GASTROINTESTINAL: Soft, nontender, nondistended. Positive bowel sounds 4 quadrants. EXTREMITIES: Negative for edema. Bilateral pedal pulses are pounding. NEUROLOGIC: No focal deficits. The patient was awake, alert, and oriented x4. Follows commands. Moves all extremities. Answers all questions appropriately. DIAGNOSTIC DATA: Pending CTA of the chest. Chest x-ray was stable. EKG showed sinus tachycardia with possible left atrial enlargement. LVH. CHEMISTRY: CBC: White count 41, hemoglobin and hematocrit 11 and 35, platelet count is 289. D- dimer was 0.70. Sodium 142, potassium 3.8, BUN 18, creatinine 0.6, blood glucose is 113. ALT was 38, alkaline phosphatase was 329, troponin was less than 0.010. Urinalysis was negative for bacteria, negative for nitrites. Blood cultures currently pending. ASSESSMENT AND PLAN: 1. Leukocytosis. The patient did receive a Neulasta shot back on October 21. We do not have any current signs of infection. She has denied any fever or chills. She has had an intermittent cough with some productive sputum that goes from clear to a light green color. Her chest x- ray did not show any pneumonia. We will for now go ahead and treat her prophylactically with cefepime as we are awaiting her blood cultures. 2. Chest pain that has been intermittent since she was restarted back on her chemotherapy. The pain was relieved with Goody Powders and muscle relaxers. We will go ahead and trend 3 sets of cardiac enzymes. Her first set is negative. We will consult Cardiology only if it is appropriate. 3. Metastatic colon cancer with a history of breast cancer. The patient was re- diagnosed back in July or August. She started her first chemotherapy cycle in September and just finished her second cycle on October 21 with Avastin and Taxotere. She received her Neulasta shot at that time, and we will consult Dr. Dietz and appreciate his input. 4. Bleeding gum at tooth #15 with no toothache. The bleeding was stopped by the emergency department physician. It now has pressure being held with packing gauze. She does not really report any pain to that tooth or where her gum was bleeding from. 5. Elevated D-dimer. CT of the chest, bilateral venous Doppler studies and a right upper extremity study to rule out pulmonary embolus and deep vein thrombosis given her cancer history. 6. Hypertension. We will continue her home medications. 7. Chronic systolic heart failure, biventricular. 8. Severe nonischemic cardiomyopathy following chemotherapy for her breast cancer. Aware. We will continue her home medications. 9. Further recommendation to follow physician evaluation, laboratory and diagnostic data. Dictated by MICHEAL Barraza for Niecy Lynn MD cc: MD Jesse Shi MD Edwin K. Matthews, MD I performed a face to face encounter on the patient. I reviewed all labs and imaging on the patient. I agree with the H&P as dictated. [facility]
--- NOTE | 2018-10-30 09:59 | Diag Imaging Result Doc PS360 ---
EXAM: CT ANGIOGRM PULMONARY ARTERIES 10/30/2018 HISTORY: R/O PE TECHNIQUE: This exam was performed using automated exposure control, adjustment of mA or kV according to patient size, and/or use of iterative reconstruction technique. COMMENT: 3-D MIPS were performed. There are no filling defects in the pulmonary arteries. The thoracic aorta is not distended and there is no evidence of dissection. There is no evidence of acute disease in the visualized portion of the abdomen. Compared to the previous study of 06/30/2018 the nodule present in the medial right lower lobe is slightly smaller measuring over 9 mm compared to over 10 mm previously. This was previously biopsied on 07/21/2018. This may not be significant change however. The lungs are probably not as well-expanded as on the previous study. There is no evidence of acute pulmonary parenchymal disease and there are no abnormal fluid collections. IMPRESSION: No evidence of pulmonary emboli. Essentially stable right lower lobe pulmonary nodule. Electronically signed by Zhou Colon 10/30/2018 9:56 AM
[2018-10-30] MEDS: NORCO-7.5 PO PRN ×2 (10:18→18:09)
[2018-10-30] MEDS: TOPROL XL PO SCH (10:19)
[2018-10-30] MEDS: COZAAR PO SCH ×2 (10:19→22:07)
[2018-10-30] MEDS: MAXIPIME 1 GM in NS 50 ML IV SCH ×2 (10:19→22:07)
[2018-10-30] MEDS ORDERED: ZOMETA 4 MG in NS 100 ML IV ONE (12:11)
[2018-10-30] MEDS: NS 1,000 ML IV SCH ×2 (13:17→22:06)
--- NOTE | 2018-10-30 15:09 | HEMO/ONC CONSULTATION ---
DATE: 10/30/2018 ADMITTING PHYSICIAN: Dr. Lynn. REQUESTING PHYSICIAN: Dr. Lynn. We appreciate this consult. CHIEF COMPLAINT: Breast cancer. HISTORY OF PRESENT ILLNESS: Ms. Jesusita Soria is a pleasant, 58-year-old female well known to Dr. Dietz with a history of grade 2 infiltrating ductal carcinoma, progesterone receptor positive. The patient is currently on Avastin and Taxotere. Her 3rd cycle of treatment is due November 04, 2018. The patient reports that on the day of admission, she began having an epigastric type of chest pain that was persistent. She did take Goody Powders and a muscle relaxant which helped to relieve it, but later the pain returned. The patient also reported shortness of breath, as well as right lower extremity pain. Additionally, upon presentation, she reported that she had an episode of a bleeding gum that she could not control for several minutes. The patient was also found to have a white blood cell count of 41,000. Chest x-ray was negative for pneumonia. Urinalysis was negative for a urinary tract infection. Blood cultures were obtained. Of note, the patient was given Neulasta following her last cycle of chemotherapy. We are consulted as the patient is well known to us with a history of breast cancer. PAST MEDICAL HISTORY: 1. Breast cancer, status post bilateral mastectomy. 2. Hypertension. 3. Metastatic lung cancer. 4. Chronic systolic heart failure. 5. Severe nonischemic cardiomyopathy following chemotherapy for breast cancer. PAST SURGICAL HISTORY: 1. Bilateral mastectomy. 2. Hysterectomy. 3. Right port placement. SOCIAL HISTORY: The patient does not use tobacco, alcohol, or illicit drugs. FAMILY HISTORY: Negative for hematologic or oncologic disease. MEDICATIONS ON ADMISSION: 1. Flexeril. 2. [place]. 3. Cozaar. 4. Toprol-XL. 5. Aldactone. ALLERGIES: Adhesive tape. REVIEW OF SYSTEMS: A 14 point review of systems was obtained and is negative except for as mentioned in HPI. PHYSICAL EXAMINATION: General: Ms. Soria is a 58-year-old female, lying supine in bed, in no immediate distress. Vital Signs: Temperature 98.8 degrees, blood pressure 141/88, heart rate 99, respirations 22, O2 saturation 96% on room air. HEENT: Normocephalic, atraumatic. Mucous membranes are slightly pale and moist. Sclerae anicteric. Extraocular movements intact. Neck: Supple. Lungs: Clear to auscultation bilaterally. Chest expansion is equal bilaterally. CV: S1, S2 is heard without murmur, rub, or gallop. Abdomen: Nondistended. Extremities: No clubbing, cyanosis, or edema. Dermatologic: No rashes, bruises, or lesions. Neurologic: The patient is awake, alert, and oriented x3 and has no focal deficits. LABORATORY DATA: Hemoglobin 11.1, hematocrit 35.6, white blood cell count is 41.65, platelets 289,000. Sodium 142, potassium 3.8, chloride 101, CO2 is 27, BUN 10, creatinine 0.6, and glucose is 113. Bilirubin 0.18, alkaline phosphatase 329, AST 28, ALT 38. Troponins are less than 0.010. CK is 58. Urinalysis is negative for UTI. IMAGING STUDIES: Chest x-ray reveals no acute abnormality. Pulmonary angiogram reveals no evidence of pulmonary emboli, with essentially stable right lower lobe pulmonary nodule. ASSESSMENT AND PLAN: 1. Grade 2 infiltrating ductal carcinoma, progesterone receptor positive, estrogen receptor negative, HER2/jani negative. The patient is currently on Avastin and Taxotere with 3rd cycle being due November 04, 2018. Of note, the patient is status post Neulasta following her last cycle of chemotherapy. 2. Chest pain with first set of cardiac enzymes that were negative. The patient is status post Neulasta after last chemotherapy. It is probable the chest pain is related to bone pain from Neulasta administration. 3. Leukocytosis, likely secondary to Neulasta affect. White blood cell count is 41,650. Urinalysis is negative for UTI. Chest x-ray reveals no acute abnormality. 4. Bleeding from tooth with packing and no further bleeding. 5. We will follow along with you and make further recommendations pending outcomes. The above reflects the history, exam, assessment, and plan of Dr. Dietz. Dictated by MICHEAL Cox for Jesse Dietz MD cc: MICHEAL Cox MD [facility]
[2018-10-30] MEDS ORDERED: EMLA CREAM TOP ONE (19:16)
[2018-10-31] MEDS: NORCO-7.5 PO PRN (03:51)
[2018-10-31] MEDS: NS 1,000 ML IV SCH ×2 (05:37→16:48)
--- NOTE | 2018-10-31 07:03 | EKG Report ---
Test Performed on : 10/31/2018 06:27:06 AM Test Reason : chest pain Blood Pressure : / mmHG Vent. Rate : 107 BPM Atrial Rate : 107 BPM P-R Int : 150 ms QRS Dur : 088 ms QT Int : 350 ms P-R-T Axes : 046 -06 068 degrees QTc Int : 467 ms Sinus tachycardia. Possible Left atrial enlargement Left ventricular hypertrophy Nonspecific T wave abnormality Abnormal ECG When compared with ECG of 30-OCT-2018 01:42, (Unconfirmed) No significant change was found Confirmed by Erica PANCHAL, Rafy Rogers ([id number]) on 10/31/2018 12:30:27 PM
[2018-10-31] MEDS: TYLENOL PO PRN ×2 (07:28→17:14)
[2018-10-31] MEDS ORDERED: NS 100 ML ONE (07:29)
[2018-10-31 07:42] LABS: BASO# 0.02 X1000 (0.0-0.2); BASO% 0.1 % (0.0-0.8); EOS# 0.03 X1000 (0.0-0.7); EOS% 0.1 % (0.0-10.0); HEMATOCRIT 33.8 % (37.0-47.0); HEMOGLOBIN 10.5 g/dL (12.0-16.0); IMM GRAN# 0.23 X1000 (0.0-0.04); IMM GRAN% 0.9 % (0.0-0.5); LYMPH% 3.3 % (20.5-51.1); MCH 28.7 PG (27-31); MCHC 31.1 g/dL (33-37); MCV 92.3 FL (81-99); MONO# 0.42 X1000 (0.11-0.59); MONO% 1.7 % (1.7-9.3); MPV 9.8 FL (7.4-10.4); NEUT# 22.92 X1000 (1.4-6.5); NEUT% 93.9 % (42.2-75.2); PLT 212 X1000 (130-400); RBC 3.66 XMIL (4.2-5.4); RDW 15.5 % (11.5-14.5); WBC 24.42 X1000 (4.8-10.8)
[2018-10-31] MEDS ORDERED: VANCOMYCIN IV PER PHARMACY MISC SCH (07:45)
[2018-10-31 07:58] LABS: AGAP 9; ALB/GLOB RATIO 1.1; ALBUMIN 3.7 g/dL (3.5-5.0); ALKALINE PHOSPHATASE 300 U/L (32-104); BUN 6 mg/dL (8-22); CALCIUM 9.4 mg/dL (8.8-10.2); CHLORIDE 102 mmol/L (98-107); COSMO 270; CREATININE 0.5 mg/dL (0.5-0.9); ESTIMATED GFR > 60; GLUCOSE 111 mg/dL (70-104); GOT 25 U/L (10-30); SODIUM 136 mmol/L (136-145); TCO2 25 mmol/L (25-35); TOTAL BILIRUBIN 0.29 mg/dL (0.20-1.00)
[2018-10-31 07:59] LABS: GPT 29 U/L (10-36); MAGNESIUM 1.9 mg/dL (1.5-2.7)
[2018-10-31 08:04] LABS: HEMOGLOBIN A1C 5.8 % (4.8-6.0)
[2018-10-31] MEDS: COZAAR PO SCH ×2 (08:22→22:30)
[2018-10-31] MEDS: TOPROL XL PO SCH (08:22)
[2018-10-31] MEDS: MAXIPIME 1 GM in NS 50 ML IV SCH (08:22)
[2018-10-31] MEDS: MOTRIN PO ONE ×2 (08:22→18:44)
[2018-10-31 08:24] LABS: BANDS 3 % (0-1); LYMPHS 4 % (21-51); MONO 1 % (1-9); SEGS 92 % (42-75)
[2018-10-31] MEDS ORDERED: VANCOMYCIN 2,000 MG in NS 500 ML IV ONE (10:00)
--- NOTE | 2018-10-31 10:56 | PROGRESS NOTE ---
DATE: 10/31/2018 SUBJECTIVE: The patient is resting comfortably in bed. She did have a fever of 103 this morning. She denies having any pain, shortness of breath, headache, dizziness or diarrhea. OBJECTIVE: Vital Signs: Temperature 103 degrees, blood pressure 131/80, heart rate 113 respirations 16, O2 saturation 95% on room air. General: This is a chronically ill-appearing female sitting in bed in no acute distress. Heart: S1, S2 normal. Tachycardic. Lungs: Clear to auscultation bilaterally. Abdomen: Positive bowel sounds. Soft, nontender, nondistended. Extremities: No edema no cyanosis. Neurologic: The patient is alert and oriented x4. LABS: White blood cell count 24, hemoglobin 10, hematocrit 33, platelets 212,000. Sodium 136, potassium 4, chloride 102, CO2 25, BUN 6, creatinine 0.5. Glucose 111, A1c 5.8, alkaline phosphatase 300. ASSESSMENT AND PLAN: 1. Fever. The patient had a fever of 103 this morning. Blood cultures have already been ordered. The patient is on broad-spectrum antibiotics. Will follow up culture results. We will also consult with infectious disease for further recommendations. 2. Hypercalcemia. Improved. The patient received a dose of Zometa yesterday. We will continue with gentle IV fluid hydration and monitor the calcium level closely. 3. Breast cancer status post chemotherapy. Management as per the oncologist. 4. Leukocytosis. Improved. Continue to monitor closely. 5. Anemia. Stable. 6. The patient has been advised to ambulate as much as possible while in the hospital. cc: Niecy Lynn MD
--- NOTE | 2018-10-31 13:29 | Diag Imaging Result Doc PS360 ---
CT ABD/PELVIS W/PO AND IV CON - 10/31/2018 INDICATION: fever, leukocytosis, increased alk phos COMPARISON: Chest CT 10/30/2018 FINDINGS: No infiltrates in the lung bases. There is a cyst in the right kidney. Otherwise all abdominal organs are normal. There is mild constipation. There is advanced diverticulosis of the sigmoid colon. No bowel obstruction or inflammation. Uterus is absent. Urinary bladder and rectum are normal. There are moderate degenerative changes of the spine. No acute or suspicious bony lesion. IMPRESSION: Constipation. Diverticulosis coli. Otherwise no acute disease. This exam was performed using automated exposure control, adjustment of mA or kV according to patient size, and/or use of iterative reconstruction technique Electronically signed by Adam Briceño 10/31/2018 1:27 PM
--- NOTE | 2018-10-31 16:46 | INFECTIOUS DISEASE CONSULT REP ---
DATE: 10/31/2018 CONCLUSION: I was asked see the patient. She came in the hospital. She had fever and marked leukocytosis. The exact cause of this is uncertain to me at this time. RECOMMENDATIONS: I agree with treating the patient with vancomycin and cefepime I have increased the dose of cefepime to 2 grams IV every 12 hours. I have also ordered a CT scan of the abdomen and pelvis. DISCUSSION: The patient tells me that she was doing quite well up until approximately 4 days ago. She started having pleuritic chest pain and then she developed fever a day ago. She has also noticed that she has had some left-sided gingival bleeding from the maxilla gingiva on the left side. Studies done thus far show a CBC which initially had a white count of 41,650 and today it is 24,420, hemoglobin is 10.5, platelet count is 212,000 creatinine is 0.5 GFR is greater than 60. Alkaline phosphatase is 300. Urinalysis showed no white cells and no bacteria. Blood cultures are pending. CT angiogram of the chest showed no infiltrate or pulmonary embolus. It did show a right lower lobe nodule, which has been present for a long period of time and has not changed. PAST MEDICAL HISTORY/REVIEW OF SYSTEMS: Eyes and ears: Her hearing and vision is good. Neck: No stiffness. Bones joints muscles: Patient says she gets myalgias and bone pain any time she receives Neulasta. Eyes and ears: No trouble seeing or hearing. Neck: No stiffness. See present illness. The patient is not coughing and she is not dyspneic. Cardiac: The patient was having some pleuritic chest pain but no pain with exertion. She did not have any palpitations. GI no nausea, vomiting, or diarrhea. : No dysuria or flank pain. Neurologic: No seizures no loss of motor or sensory function. Integument: No rashes. 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 She has had a hysterectomy. PREVIOUS HOSPITALIZATIONS AND OPERATIONS: She has had 2 labor and deliveries, a hysterectomy, a bilateral mastectomy and then reconstruction of both breasts, MEDICAL DISEASES: Positive for obesity, breast cancer, hypertension. The patient's right breast cancer had is metastatic in the lung. INFECTIOUS DISEASE HISTORY: Positive for pneumonia negative for UTI. FAMILY HISTORY: Positive for hypertension and myocardial infarction. SOCIAL HISTORY: The patient lives in [place]. She is . She does not have any pets at home. She occasionally drinks an alcoholic beverage. She does not abuse drugs. ALLERGIES: Her chart lists only an allergy to adhesive tape her. HOME MEDICATIONS: Include the home medications include Flexeril, hydrocodone, losartan, metoprolol and spironolactone. PHYSICAL EXAMINATION: Vital Signs: Temperature was 101 degrees, pulse is 113, respirations 16, blood pressure 131/80. Patient weighs 175 pounds. General: This is an obese but otherwise healthy-appearing, middle-aged female. She is in no acute distress. Head, eyes, ears, nose, and throat: She can hear my spoken words and see near objects. She does not have any white patches on her tongue. In the left maxilla area where the patient was having some bleeding, there appeared to be a small ulcerated area. The left side of the face showed no swelling or tenderness. Neck: No meningismus. Lungs: Clear to auscultation. Cardiovascular: Regular heart rate. Abdomen: Soft and nontender. Neurologic: The patient is alert. She can move her extremities. There is no tremor. Her since her sensation is intact to touch. Her memory as regarding her medical history is intact. INTEGUMENT: No rash noted. Thank you for the consultation. cc: Wily Espinoza MD
[2018-10-31] MEDS: LOVENOX SUBQ SCH (16:55)
[2018-10-31] MEDS ORDERED: MOTRIN PO PRN ×2 (18:37→18:43)
[2018-10-31] MEDS: MAXIPIME 2 GM in NS 50 ML IV SCH (22:29)
[2018-10-31] MEDS: MIRALAX PO SCH (22:30)
[2018-11-01] MEDS: NS 1,000 ML IV SCH (03:02)
[2018-11-01] MEDS: VANCOMYCIN 1,750 MG in NS 250 ML IV SCH ×2 (05:23→17:10)
[2018-11-01 07:25] LABS: BASO# 0.01 X1000 (0.0-0.2); BASO% 0.1 % (0.0-0.8); EOS# 0.06 X1000 (0.0-0.7); EOS% 0.6 % (0.0-10.0); HEMATOCRIT 32.8 % (37.0-47.0); HEMOGLOBIN 10.2 g/dL (12.0-16.0); IMM GRAN# 0.09 X1000 (0.0-0.04); IMM GRAN% 0.9 % (0.0-0.5); LYMPH# 0.48 X1000 (1.2-3.4); LYMPH% 4.6 % (20.5-51.1); MCH 28.6 PG (27-31); MCHC 31.1 g/dL (33-37); MCV 91.9 FL (81-99); MONO# 0.24 X1000 (0.11-0.59); MONO% 2.3 % (1.7-9.3); MPV 10.2 FL (7.4-10.4); NEUT# 9.45 X1000 (1.4-6.5); NEUT% 91.5 % (42.2-75.2); PLT 174 X1000 (130-400); RBC 3.57 XMIL (4.2-5.4); RDW 15.5 % (11.5-14.5); WBC 10.33 X1000 (4.8-10.8)
[2018-11-01 07:38] LABS: AGAP 10; BUN 8 mg/dL (8-22); CALCIUM 7.7 mg/dL (8.8-10.2); CHLORIDE 106 mmol/L (98-107); COSMO 272; CREATININE 0.4 mg/dL (0.5-0.9); ESTIMATED GFR > 60; GLUCOSE 89 mg/dL (70-104); POTASSIUM 3.5 mmol/L (3.5-5.1); SODIUM 137 mmol/L (136-145); TCO2 21 mmol/L (25-35)
[2018-11-01] MEDS: MIRALAX PO SCH ×2 (09:29→21:33)
[2018-11-01] MEDS: TOPROL XL PO SCH (09:37)
[2018-11-01] MEDS: COZAAR PO SCH ×2 (09:37→21:33)
--- NOTE | 2018-11-01 11:35 | PROGRESS NOTE ---
DATE: 11/01/2018 SUBJECTIVE: The patient states that she feels great this morning. She did have a fever of 100 at 8 p.m. last night. OBJECTIVE: Vital Signs: Temperature T-max 100 degrees, blood pressure 138/82, heart rate 93, respirations 20, O2 saturation is 100% on room air. General: This is an elderly female sitting up in bed in no acute distress. Heart: S1, S2 normal. Regular rate and rhythm. Lungs: Clear to auscultation bilaterally. No wheezing. No rales. No rhonchi. Abdomen: Positive bowel sounds. Soft, nontender, nondistended. Extremities: No edema, no cyanosis. Neurologic: The patient is alert and oriented x4. LABS: White blood cell count 10, hemoglobin 10, hematocrit 32, platelets 174. Sodium 137, potassium 3.5, chloride 106, CO2 21. BUN 8, creatinine 0.4, glucose 89, calcium 7.7. ASSESSMENT AND PLAN: 1. Fever. The patient had a fever of 100 at 8 p.m. last night. So far, the blood cultures remain negative. No obvious source of infection is apparent. Continue with broad-spectrum antibiotics. Will follow up on the culture results. Infectious Disease is following. 2. Breast cancer, status post chemotherapy. Stable. Oncology is following. 3. Anemia. Stable. 4. Leukocytosis. Resolved. 5. Continue with physical therapy. cc: Niecy Lynn MD
[2018-11-01] MEDS: LOVENOX SUBQ SCH (11:55)
[2018-11-01] MEDS: MAXIPIME 2 GM in NS 50 ML IV SCH ×2 (11:57→21:34)
[2018-11-01] MEDS: TYLENOL PO PRN (21:33)
[2018-11-02 04:07] LABS: HEMATOCRIT 31.3 % (37.0-47.0); HEMOGLOBIN 9.7 g/dL (12.0-16.0); MCH 28.3 PG (27-31); MCV 91.3 FL (81-99); MPV 9.9 FL (7.4-10.4); RBC 3.43 XMIL (4.2-5.4); RDW 15.3 % (11.5-14.5); WBC 9.72 X1000 (4.8-10.8)
[2018-11-02 05:00] LABS: AGAP 7; BUN 6 mg/dL (8-22); CALCIUM 8.1 mg/dL (8.8-10.2); CHLORIDE 105 mmol/L (98-107); COSMO 277; CREATININE 0.4 mg/dL (0.5-0.9); ESTIMATED GFR > 60; GLUCOSE 94 mg/dL (70-104); POTASSIUM 3.3 mmol/L (3.5-5.1); SODIUM 140 mmol/L (136-145); TCO2 28 mmol/L (25-35)
[2018-11-02] MEDS ORDERED: KLOR-CON PO ONE (05:33)
[2018-11-02] MEDS ORDERED: VANCOMYCIN 1,800 MG in NS 250 ML IV SCH (06:00)
[2018-11-02] MEDS: MIRALAX PO SCH (10:11)
[2018-11-02] MEDS: COZAAR PO SCH (10:11)
[2018-11-02] MEDS: LOVENOX SUBQ SCH (10:12)
[2018-11-02] MEDS: TOPROL XL PO SCH (10:12)
--- NOTE | 2018-11-02 10:58 | Diag Imaging Result Doc PS360 ---
CHEST-PORTABLE - 11/02/2018 INDICATION: dyspnea COMPARISON: 10/30/2018 FINDINGS: Stable right chest port in good position. The lungs are clear. Heart size is normal. No pneumothorax or pleural effusion. IMPRESSION: Negative exam. Electronically signed by Adam Briceño 11/02/2018 10:55 AM
[2018-11-02] MEDS ORDERED: MAXIPIME 2 GM in NS 50 ML IV SCH (14:00)
--- NOTE | 2018-11-02 15:00 | PROGRESS NOTE ---
DATE: 11/02/2018 SUBJECTIVE: The patient states that she feels good today. She did have a low- grade fever last night. OBJECTIVE: Vital Signs: Temperature 98.1 degrees, blood pressure 133/98, heart rate 95, respirations 16, O2 saturation 100% on room air. General: This is an elderly female, sitting up in bed in no acute distress. Heart: S1, S2 normal. Regular rate and rhythm. Lungs: Clear to auscultation bilaterally. Abdomen: Positive bowel sounds. Soft, nontender, nondistended. Extremities: No edema, no cyanosis. Neurologic: The patient is alert and oriented x4. LABORATORY DATA: Hemoglobin 9.7, hematocrit 31, platelets 164,000. Sodium 140, potassium 3.3, chloride 105, CO2 of 28, BUN 6, creatinine 0.4, glucose 94, calcium 8.1. ASSESSMENT AND PLAN: 1. Fever. So far, the patient's cultures remain negative, and there is no obvious source of infection. The patient has been transitioned to oral antibiotic therapy. She will follow up with and as outpatient. 2. Breast cancer. Stable. Oncology is following. 3. Anemia. Stable. 4. Leukocytosis. Resolved. 5. Hypercalcemia. Resolved. DISPOSITION: The patient will be discharged home today cc: Niecy Lynn MD MTDKala
--- NOTE | 2018-11-02 15:53 | INFECTIOUS DISEASE PROGRESS NO ---
DATE: 11/02/2018 PRESENT ILLNESS: The patient has was admitted to the hospital because of high fever and leukocytosis. The exact etiology of what caused it is uncertain to me. MEDICATIONS: The patient is receiving a combination of cefepime and vancomycin. PHYSICAL EXAMINATION: Vital Signs: Temperature initially was 100.3, then it went to 100.2, and today the temperature is 98.1 degrees, pulse is 95, respirations 16, blood pressure is 133/98. General: This is an obese, middle-aged female. She is in no acute distress. Head/eyes/ears/nose/throat: She can hear my spoken words and see near objects. I did not see any intraoral white patches or ulcerated areas or any bleeding areas. Neck: No meningismus. Lungs: Clear to auscultation. Cardiovascular: Regular heart rate. Thorax: The patient's Port-A-Cath site is not swollen, tender, or draining. Abdomen: Soft and nontender. Neurologic: The patient is alert. She can move her extremities. There is no tremor. Integument: No rash noted. LAB AND X-RAY: The patient's initial white count was 41,650. Today the white blood cell count is 9720, hemoglobin 9.7, platelet count 164,000. Creatinine is 0.4. GFR is greater than 60. Blood cultures are negative. Chest x-ray shows no abnormality. CT scan of the abdomen and pelvis shows constipation and diverticulosis but no diverticulitis. ASSESSMENT AND PLAN: Patient had fever and leukocytosis, the exact etiology of which is uncertain to me. She seems to have responded to antibiotics. The plan now is to discharge her home on a combination of Augmentin 875 mg and ciprofloxacin 500 mg each taken p.o. every 12 hours for a week and to have the patient come back to my office in 1 week. I have asked the patient to keep a log of her temperatures during the day and night. Also, I told her that if she starts running a high fever to call us right away. COMORBIDITIES: Patient has metastatic breast cancer to the lung. cc: Wily Espinoza MD
[2018-11-02 16:05] VITALS: BP 151/88
--- NOTE | 2018-11-04 19:34 | Extremity Venous Study ---
PROCEDURE NAME: Venous U/S Bilateral Legs - 10/30/2018 REFERRING PHYSICIAN: Thomas. INTERPRETING PHYSICIAN: Michael. LITIGATOR: Joaquina. The patient has leg pain. Bilateral lower extremity venous images accomplished. The common femoral, superficial femoral, deep femoral, popliteal, posterior tibial, peroneal, and greater saphenous veins are imaged bilaterally. Doppler is used to evaluate the veins for spontaneity, phasicity, respiratory excursion, distal augmentation. All veins are compressible. No intraluminal clot is seen. INTERPRETATION: No evidence of deep or superficial venous thrombosis in either lower extremity veins identified. cc: Yayo Rodriguez MD
--- NOTE | 2018-11-04 19:51 | Extremity Venous Study ---
PROCEDURE NAME: Venous U/S Right Arm - 10/30/2018 REFERRING PHYSICIAN: Thomas. INTERPRETING PHYSICIAN: Yayo Rodriguez MD GEOSCIENCE TECHNICIAN: Joaquina. DESCRIPTION OF PROCEDURE: The patient has edema in the right arm and a right subclavian port. The right upper extremity is imaged. The subclavian, internal jugular, axillary, basilic, brachial and cephalic veins are all imaged. All veins imaged are compressible. The left subclavian vein is imaged for comparison purposes. It is compressible. INTERPRETATION: The veins identified in the right upper extremity are compressible. No intraluminal clot is seen. No evidence of deep or superficial venous thrombosis in the right upper extremity veins identified. cc: Yayo Rodriguez MD
--- NOTE | 2018-11-11 09:56 | DISCHARGE SUMMARY ---
ADMISSION DATE: 10/30/2018 DISCHARGE DATE: 11/02/2018 FINAL DISCHARGE DIAGNOSES: 1. Fever of unknown origin. 2. Breast cancer. 3. Anemia. 4. Hypercalcemia. 5. Leukocytosis. CONSULTATIONS: 1. Infectious Disease consultation with Dr. Espinoza. 2. Oncology consultation with Dr. Dietz. HOSPITAL COURSE: Ms. Soria is a 58-year-old female with a history of breast cancer status post chemotherapy, who presented to the ER with a chief complaint of chest pain and bleeding from her gums. The patient had just finished her second cycle of chemotherapy and had just received a Neulasta shot. On admission, a pulmonary arteriogram was done that was noted to be negative for pulmonary embolus. However, the patient was noted to have a calcium of 11.1. The patient was admitted to the Hospitalist Service. She was also noted to have a white blood cell count of 41,000. Blood cultures were obtained and the patient was started on empiric antibiotic therapy. Infectious Disease was also consulted. The patient received IV fluid hydration for the hypercalcemia, as well as a dose of Zometa. With the initiation of these therapies, the patient's calcium normalized. The patient's white blood cell count slowly normalized as well. Her blood cultures remain negative after 5 days. It was recommended by Dr. Espinoza that the patient be discharged home with an oral antibiotic. DISCHARGE MEDICATIONS: 1. Augmentin 875/125 one tablet oral every 12 hours. 2. Cipro 500 mg p.o. every 12 hours. 3. [place] 7.5/325 one tab oral every 4 hours p.r.n. 4. Cozaar 25 mg p.o. twice a day. 5. Toprol-XL 25 mg p.o. daily. 6. Flexeril 5 mg oral every 6 hours p.r.n. 7. Aldactone 12.5 mg oral daily p.r.n. DISCHARGE DIET: Regular diet. ACTIVITY: As tolerated. FOLLOWUP INSTRUCTIONS: The patient will need to follow-up with Dr. Dietz as scheduled by his clinic. cc: Niecy Lynn MD
== END 2018-11-02 17:22 | disposition home or self-care (01) | DRG 815 ==
LOC: ED 01:35 → 3N 08:32
PROVIDERS: ATTEND Internal Medicine
CPT/HCPCS: 71010; 71020; 71045; 71046; 71275; 74177; 80048; 80053; 80202; 81001; 82397; 82550; 83036; 83605; 83735; 83970; 84484; 85025; 85027; 85379; 85610; 85730; 87040; 93005; 93010; 93306; 93970; 93971; 94761; 99285; A9270; J0692; J1650; J3370; J3487; J3489; J7030; J7040; J7050; Q2051; Q9967

== ENCOUNTER 2019-07-03 13:49 | Inpatient (IN) ==
--- NOTE | 2019-07-03 14:38 | Diag Imaging Result Doc PS360 ---
EXAM: CHEST-1 VIEW HISTORY: SOB TECHNIQUE: Single view COMPARISON: 11/02/2018 FINDINGS: The lungs are well expanded. Heart is mildly prominent. Tiny bilateral pleural effusions. No change in the right sided portacatheter. No pneumothoraces. Mild increased markings in the mid right lung. IMPRESSION: Tiny pleural effusions with a small mid right lung infiltrates versus atelectasis. Electronically signed by Oswaldo Walker 07/03/2019 2:36 PM
[2019-07-03 15:09] LABS: URINE SOURCE CATH
[2019-07-03 15:15] LABS: BILIRUBIN URINE NEGATIVE (NEGATIVE); BLOOD URINE NEGATIVE (NEGATIVE); COLOR YELLOW; GLUCOSE URINE NEGATIVE (NEGATIVE); KETONE URINE NEGATIVE (NEGATIVE); LEUKOCYTES URINE NEGATIVE (NEGATIVE); NITRITE URINE NEGATIVE (NEGATIVE); PROTEIN URINE 30 mg/dL (NEGATIVE); SP GRAVITY URINE 1.021; TURBIDITY URINE HAZY (CLEAR); UR EPITHELIAL CELLS <10 /HPF (<10); URINE BACTERIA NEGATIVE /HPF; URINE RBC <10 /HPF (<10); URINE WBC <10 /HPF (<10); UROBILINOGEN URINE 2 mg/dL (NORMAL)
[2019-07-03 15:15] LABS: INR 0.99; PROTIME 13.2 Seconds (11.0-16.0)
[2019-07-03 15:16] LABS: PTT 34.2 Seconds (22.3-41.8)
[2019-07-03 15:23] LABS: BASO# 0.03 X1000 (0.0-0.2); BASO% 0.1 % (0.0-0.8); EOS# 0.03 X1000 (0.0-0.7); EOS% 0.1 % (0.0-10.0); HEMATOCRIT 34.7 % (37.0-47.0); IMM GRAN# 1.84 X1000 (0.0-0.04); IMM GRAN% 7.3 % (0.0-0.5); LYMPH# 0.72 X1000 (1.2-3.4); LYMPH% 2.9 % (20.5-51.1); MCH 30.2 PG (27-31); MCHC 31.7 g/dL (33-37); MCV 95.3 FL (81-99); MONO# 0.98 X1000 (0.11-0.59); MONO% 3.9 % (1.7-9.3); MPV 10.2 FL (7.4-10.4); NEUT# 21.58 X1000 (1.4-6.5); NEUT% 85.7 % (42.2-75.2); PLT 307 X1000 (130-400); RBC 3.64 XMIL (4.2-5.4); RDW 15.3 % (11.5-14.5); WBC 25.18 X1000 (4.8-10.8)
[2019-07-03 15:25] LABS: AGAP 14; ALB/GLOB RATIO 1.2; ALBUMIN 3.4 g/dL (3.5-5.0); ALKALINE PHOSPHATASE 151 U/L (32-104); BUN 10 mg/dL (8-22); CALCIUM 8.9 mg/dL (8.8-10.2); CHLORIDE 99 mmol/L (98-107); CK PROFILE 39 U/L (24-173); COSMO 274; CREATININE 0.5 mg/dL (0.5-0.9); ESTIMATED GFR > 60; GLUCOSE 94 mg/dL (70-104); GOT 22 U/L (10-30); GPT 24 U/L (10-36); POTASSIUM 3.7 mmol/L (3.5-5.1); SODIUM 138 mmol/L (136-145); TCO2 25 mmol/L (25-35); TOTAL BILIRUBIN 0.28 mg/dL (0.20-1.00); TOTAL PROTEIN 6.3 g/dL (6.3-8.3)
--- NOTE | 2019-07-03 15:28 | EKG Report ---
Test Performed on : 07/03/2019 2:02:30 PM Test Reason : SOB Blood Pressure : / mmHG Vent. Rate : 104 BPM Atrial Rate : 104 BPM P-R Int : 150 ms QRS Dur : 088 ms QT Int : 378 ms P-R-T Axes : 027 -11 049 degrees QTc Int : 497 ms Sinus tachycardia. Possible Left atrial enlargement Left ventricular hypertrophy Nonspecific T wave abnormality Abnormal ECG When compared with ECG of 31-OCT-2018 06:27, No significant change was found Unconfirmed Result
[2019-07-03] MEDS ORDERED: VANCOMYCIN 1 GM/NS 1 GM/250 ML IVPB IV ONE (16:47)
[2019-07-03] MEDS ORDERED: ZOSYN 4.5 GM in NS 100 ML IV ONE (16:47)
[2019-07-03] MEDS ORDERED: NS 1,000 ML IV ONE (16:48)
[2019-07-03 17:03] LABS: ALLEN TEST YES; BLOOD TYPE ARTERIAL; HCO3-(ACT) 26.5 mmoll (20.0-26.0); METHB 0.8 % (0.0-1.5); O2(CT) 14.9 mL/dL (15.0-23.0); O2HB 97.3 % (95.0-99.0); PCO2(98.6) 35 mmHg (35-45); PO2(98.6) 135 mmHg (60-100); SAMPLE BLOOD; SAO2 100.3 % (95.0-100.0); THB 10.7 g/dL (11.5-17.4); pH(98.6) 7.47 (7.35-7.45)
[2019-07-03 17:04] LABS: MODALITY VENTIMASK
--- NOTE | 2019-07-03 18:15 | Diag Imaging Result Doc PS360 ---
EXAM: CT ANGIOGRM PULMONARY ARTERIES HISTORY: sob, hypoxia TECHNIQUE: CT chest with intravenous contrast. Pulmonary arterial protocol with MIP images. COMPARISON: 03/18/2019 FINDINGS: There are small bilateral pleural effusions. The one on the right measures 2.8 cm posteriorly and inferiorly in the midline and the one on the left measures 2.6 cm. There is a left-sided chest tube. No pneumothorax. Normal opacification of the pulmonary arteries and their major branches. No aortic aneurysm or dissection. Mild cardiomegaly. There are scattered small nodules and patchy infiltrates bilaterally. Basilar atelectasis. Worsening lytic areas in the upper and mid thoracic spine. No enlarged lymph nodes. Bilateral breast implants. IMPRESSION: 1.No pulmonary emboli 2.Development of small bilateral pleural effusions and multi focal patchy infiltrates 3.Development of multiple small scattered nodules 4.Worsening lytic areas throughout the spine This exam was performed using automated exposure control, adjustment of mA or kV according to patient size, and/or use of iterative reconstruction technique. Electronically signed by Oswaldo Walker 07/03/2019 6:13 PM
--- NOTE | 2019-07-03 18:51 | PROVIDER DOCUMENTATION ---
This chart was entered by Lashaun Dickey Scribe, acting as scribe for Kendall Hi MD. HPI-Respiratory General - General Chief Complaint: SEPSIS ALERT Stated Complaint: SOB,LOW OXYGEN Time Seen by Provider: 07/03/19 14:09 Source: patient, family (), RN/MD (dr roman) Allergies/Adverse Reactions: Patient Allergies Allergy/AdvReac Type Severity Reaction Status Date / Time adhesive tape Allergy Intermediate blisters Verified 07/03/19 14:20 skin Home Medications: Home Medication List Medication Instructions Recorded Confirmed Last Taken Type Losartan [Cozaar] 100 mg PO DAILY 01/07/17 07/03/19 07/03/19 History Metoprolol Succinate E.r. [Toprol 25 mg PO DAILY #60 tablet 01/10/17 07/03/19 07/03/19 Rx Xl] Amlodipine Besylate 1 tab PO DAILY 07/03/19 07/03/19 07/03/19 History Famotidine [Pepcid] 1 tab PO DAILY 07/03/19 07/03/19 07/03/19 History Furosemide [Lasix] 1 tab PO DAILY 07/03/19 07/03/19 07/03/19 History Methocarbamol [Robaxin-750] 1 tab PO PRN PRN 07/03/19 07/03/19 07/03/19 History Morphine E.r. [Ms Contin] 1 tab PO Q12H 07/03/19 07/03/19 07/03/19 09:00 History Oxycodone HCl 1 dose PO Q6H PRN PRN 07/03/19 07/03/19 07/02/19 History Potassium Chloride Powder Pkt 1 dose PO DAILY 07/03/19 07/03/19 07/03/19 History [Klor-Con Powder Packet] Pregabalin 1 tab PO DAILY 07/03/19 07/03/19 07/03/19 History - History of Present Illness-Resp Nature of Presenting Problem: 59 yobf presents to the ed from dr roman office with low o2 sat. pt once in triage had O2 sat 77%. pt was placed venti mask at 15LPM and O2 sat came up to 100%. pt is currently going through chemo for breast cancer mets to bone and lungs. pt sts has noted SOB for 2 days and denies pain but does take morphine daily due to cancer. pt has port and sts they drain 150ml every 2 days from left lung. Quality of Pain: reports: none Severity in ED: reports: moderate (low O2) Onset/Duration: reports: 2 days ago Timing: reports: still present Cough Quality/Degree: reports: mild, dry cough Episode Frequency: occasional episodes Current Respiratory Medication Therapy: Initiated see nurses note Modifying Factors: improves with: oxygen Associated Symptoms: reports: cough, shortness of breath. denies: chest pain/soreness Similar Symptoms Previously?: Yes Recently seen or treated by another doctor?: Yes (dr penny onc[facility] today ) Review of Systems - Adult - REVIEW OF SYSTEMS - ADULT Constitutional: reports: no symptoms reported Eyes: reports: no symptoms reported Ears, Nose, Mouth & Throat: reports: no symptoms reported Cardiovascular: denies: chest pain, palpitations Respiratory: reports: see HPI, cough, shortness of breath Gastrointestinal: denies: diarrhea, nausea, vomiting Genitourinary: reports: no symptoms reported Musculoskeletal: denies: back pain, neck pain Integumentary: reports: no symptoms reported Neurological: denies: dizziness/vertigo, headache/migraines Psychiatric: reports: no symptoms reported Endocrine: reports: no symptoms reported Hematologic/Lymphatic: reports: no symptoms reported Allergic/Immunologic: reports: no symptoms reported All Other Systems: Reviewed and Negative Past History - Adult - PAST MEDICAL HISTORY-ADULT Review of Records: reports: Old Records Reviewed, Nursing Assessment Review, Medications Reviewed, Social history reviewed & non-contributory. Major Childhood Illnesses: reports: denies history Cardiovascular: reports: HTN Respiratory: reports: cancer (lung) Gastrointestinal: reports: denies history Obstetrical/Gynecological: reports: denies history Genitourinary: reports: denies history Musculoskeletal: reports: cancer Neurological: reports: denies history Psychiatric: reports: denies history Endocrine/Immune: reports: denies history Additional History: Breast CA mets to lung and bone - PRIOR SURGERIES/PROCEDURES Surgical/Procedure History: reports: hysterectomy, breast - IMMUNIZATION STATUS Childhood Immunizations: See Nurse Assessment Flu Vaccine: See Nurse Assessment - SOCIAL HISTORY Smoking: quit greater than 1 year Substance Use: denies Alcohol Use Frequency: occasionally Living Situation: family Physical Exam-General - PHYSICAL EXAM-ADULT Initial Vital Signs Reviewed: Yes - CONSTITUTIONAL General Appearance: alert, mild distress - EYES Eyes: PERRL/EOMI - NECK Neck: full range of motion, normal inspection - RESPIRATORY Respiratory: respiratory distress (77% pt placed on venti masked at 15LPM now O2 sat 100%), decreased breath sounds (on left lung) - CARDIOVASCULAR Cardiovascular: normal peripheral pulses, tachycardia (106) - CHEST (BREASTS) Chest/Breast: deferred - GASTROINTESTINAL (ABDOMEN) Abdominal Exam: normal bowel sounds, non tender, soft, other (pt has drainage port on LUQ that pulls approx 150ml every 2 days from left lung) - GENITOURINARY Female Genitalia/Pelvic Exam: deferred Rectal Exam: deferred Hemoccult Exam: deferred - MUSCULOSKELETAL Back Exam: normal inspection, no CVA tenderness, no vertebral tenderness Extremity: normal range of motion, normal inspection, normal capillary refill - SKIN Integumentary: normal color, normal turgor, warm/dry - NEUROLOGIC Neurologic: grossly normal - PSYCHIATRIC Psych/Mental Status: normal mood/affect, normal thought content, normal thought process, oriented x 3 Progress - PLAN OF CARE/RESULTS Progress/Plan/Lab Results: Vital Signs - 8 hr 07/03/19 14:02 Temperature 99.1 F Pulse Rate 106 H Respiratory Rate 20 Blood Pressure 102/63 O2 Sat by Pulse Oximetry 77 L 07/03/19 14:49 Influenza Screen - Final Nasopharyngeal Laboratory Results - last 24 hr 07/03/19 07/03/19 07/03/19 14:41 14:41 14:41 WBC 25.18 H RBC 3.64 L Hgb 11.0 L Hct 34.7 L MCV 95.3 MCH 30.2 MCHC 31.7 L RDW Std Deviation 15.3 H Plt Count 307 MPV 10.2 Immature Gran % (Auto) 7.3 H Neut % (Auto) 85.7 H Lymph % (Auto) 2.9 L Stearns % (Auto) 3.9 Eos % (Auto) 0.1 Baso % (Auto) 0.1 Immature Gran # (Auto) 1.84 H Neut # (Auto) 21.58 H Lymph # (Auto) 0.72 L Stearns # (Auto) 0.98 H Eos # (Auto) 0.03 Baso # (Auto) 0.03 PT INR PTT (Actin FS) Specimen Type Sample Site pH pCO2 pO2 HCO3 Base Excess Oxyhemoglobin ABG O2 Sat (Calculated) ABG O2 Saturation ABG Carboxyhemoglobin ABG Methemoglobin Rafy Test A-a O2 Difference Total Hemoglobin Lactate Blood Gas Modality FiO2 % Sodium 138 Potassium 3.7 Chloride 99 Carbon Dioxide 25 Anion Gap 14 BUN 10 Creatinine 0.5 Estimated GFR/1.73 m2 > 60 BUN/Creatinine Ratio 20 Glucose 94 Calculated Osmolality 274 Calcium 8.9 Total Bilirubin 0.28 AST 22 ALT 24 Alkaline Phosphatase 151 H Creatine Kinase 39 Troponin T High Sens 8 Nej-S-Toqmrhqvbbx Pept Total Protein 6.3 Albumin 3.4 L Globulin 2.9 Albumin/Globulin Ratio 1.2 Plasma Lactate Urine Source Urine Color Urine Turbidity Urine pH Ur Specific [place] Urine Protein Ur Glucose (Stick) Ur Ketones (Stick) Urine Blood Urine Nitrite Urine Bilirubin Urobilinogen Dipstick Urine Leukocytes Urine WBC (Auto) Urine RBC (Auto) U Epithel Cells (Auto) Urine Bacteria (Auto) 07/03/19 07/03/19 07/03/19 14:41 14:41 14:42 WBC RBC Hgb Hct MCV MCH MCHC RDW Std Deviation Plt Count MPV Immature Gran % (Auto) Neut % (Auto) Lymph % (Auto) Stearns % (Auto) Eos % (Auto) Baso % (Auto) Immature Gran # (Auto) Neut # (Auto) Lymph # (Auto) Stearns # (Auto) Eos # (Auto) Baso # (Auto) PT 13.2 INR 0.99 PTT (Actin FS) 34.2 Specimen Type Sample Site pH pCO2 pO2 HCO3 Base Excess Oxyhemoglobin ABG O2 Sat (Calculated) ABG O2 Saturation ABG Carboxyhemoglobin ABG Methemoglobin Rafy Test A-a O2 Difference Total Hemoglobin Lactate Blood Gas Modality FiO2 % Sodium Potassium Chloride Carbon Dioxide Anion Gap BUN Creatinine Estimated GFR/1.73 m2 BUN/Creatinine Ratio Glucose Calculated Osmolality Calcium Total Bilirubin AST ALT Alkaline Phosphatase Creatine Kinase Troponin T High Sens Dpf-E-Szftiduffuc Pept 275 H Total Protein Albumin Globulin Albumin/Globulin Ratio Plasma Lactate 1.6 Urine Source Urine Color Urine Turbidity Urine pH Ur Specific [place] Urine Protein Ur Glucose (Stick) Ur Ketones (Stick) Urine Blood Urine Nitrite Urine Bilirubin Urobilinogen Dipstick Urine Leukocytes Urine WBC (Auto) Urine RBC (Auto) U Epithel Cells (Auto) Urine Bacteria (Auto) 07/03/19 07/03/19 07/03/19 15:02 16:54 17:30 WBC RBC Hgb Hct MCV MCH MCHC RDW Std Deviation Plt Count MPV Immature Gran % (Auto) Neut % (Auto) Lymph % (Auto) Stearns % (Auto) Eos % (Auto) Baso % (Auto) Immature Gran # (Auto) Neut # (Auto) Lymph # (Auto) Stearns # (Auto) Eos # (Auto) Baso # (Auto) PT INR PTT (Actin FS) Specimen Type ARTERIAL Sample Site L RADIAL pH 7.47 H pCO2 35 pO2 135 H HCO3 26.5 H Base Excess 2.0 Oxyhemoglobin 97.3 ABG O2 Sat (Calculated) 14.9 L ABG O2 Saturation 100.3 H ABG Carboxyhemoglobin 2.20 ABG Methemoglobin 0.8 Rafy Test YES A-a O2 Difference 178.0 Total Hemoglobin 10.7 L Lactate 0.90 Blood Gas Modality VENT[place] FiO2 % 50.0 Sodium Potassium Chloride Carbon Dioxide Anion Gap BUN Creatinine Estimated GFR/1.73 m2 BUN/Creatinine Ratio Glucose Calculated Osmolality Calcium Total Bilirubin AST ALT Alkaline Phosphatase Creatine Kinase Troponin T High Sens Pxi-S-Rhgddgfzlvh Pept Total Protein Albumin Globulin Albumin/Globulin Ratio Plasma Lactate 0.8 Urine Source CATH Urine Color YELLOW Urine Turbidity HAZY Urine pH 6.0 Ur Specific [place] 1.021 Urine Protein 30 A Ur Glucose (Stick) NEGATIVE Ur Ketones (Stick) NEGATIVE Urine Blood NEGATIVE Urine Nitrite NEGATIVE Urine Bilirubin NEGATIVE Urobilinogen Dipstick 2 A Urine Leukocytes NEGATIVE Urine WBC (Auto) <10 Urine RBC (Auto) <10 U Epithel Cells (Auto) <10 Urine Bacteria (Auto) NEGATIVE Orders Category Date Time Status Cardiac Monitoring NOW Care 07/03/19 14:10 Active IV Insertion NOW Care 07/03/19 14:10 Completed NEWS Score >or=5:Order NEWS Bundle S.O. NOW Care 07/03/19 14:09 Active Notify Provider of NEWS Score NOW Care 07/03/19 14:10 Active CHEST-1 VIEW [RAD] Stat Exams 07/03/19 14:[address] ANGIOGRM PULMONARY ARTERIES [CT] Stat Exams 07/03/19 16:45 Completed ABG [RESP] Routine Lab 07/03/19 16:54 Completed BLOOD CULTURE [BLDCUL] Stat Lab 07/03/19 14:48 Results CBC WITH DIFF [HEME] Stat Lab 07/03/19 14:41 Completed CK PROFILE [SP CHEM] Stat Lab 07/03/19 14:41 Completed COMPREHENSIVE METABOLIC PANEL [CHEM] Stat Lab 07/03/19 14:41 Completed INFLUENZA SCREEN A/B Stat Lab 07/03/19 14:49 Completed LACTATE, PLASMA [CHEM] Lab 07/03/19 17:30 Completed LACTATE, PLASMA [CHEM] Lab 07/03/19 20:15 Uncollected LACTATE, PLASMA [CHEM] Q3H Lab 07/03/19 14:42 Completed PRO B-NATRIURETIC PEPTIDE Stat Lab 07/03/19 14:41 Completed PROTIME WITH INR [COAG] Stat Lab 07/03/19 14:41 Completed PTT [COAG] Stat Lab 07/03/19 14:41 Completed TROPONIN T HIGH SENSITIVITY Stat Lab 07/03/19 14:41 Completed URINALYSIS W/POSS RFLX CULT [URINALYSIS] Stat Lab 07/03/19 15:02 Completed 0.9% Sodium Chloride Inj [Ns] 1,000 ml Med 07/03/19 16:48 Discontinued IV 999 mls/hr Piperacillin/Tazobactam [Zosyn] 4.5 gm Med 07/03/19 16:47 Discontinued 0.9% Sodium Chloride Inj [Ns] 100 ml IV NOW Vancomycin 1 gm/Ns Med 07/03/19 16:47 Discontinued 1 gm in 250 ml IV NOW O2 Per Protocol Stat Oth 07/03/19 14:10 Completed EKG [EKG] Stat Ther 07/03/19 14:11 Draft Result Diagrams: 07/03/19 14:41 07/03/19 14:41 - REASSESSMENT Reassessment #1 Time Reassessed: 18:01 Status: improving (sob improving. ABG- she has a po2 of 135, respiratory to decrease venturi mask from 50%. Awaiting CT report) - EKG 1 Time of EKG reading by physician:: 14:02 EKG Read and Signed by:: Doretha Camilo EKG Interpretation (*Must complete 3 of following elements*): Abnormal Rate: 104 Rhythm: sinus tachytcardia [place]: normal QRS: LVH, other (LAE) [place] Interval: normal Comments: nonspecific T wave abnormality - XRAY 1 XRAY: Bilateral XRAY Study: Chest Impression: See EMR Report (EXAM: CHEST-1 VIEW HISTORY: SOB TECHNIQUE: Single view COMPARISON: 11/02/2018 FINDINGS: The lungs are well expanded. Heart is mildly prominent. Tiny bilateral pleural effusions. No change in the right sided portacatheter. No pneumothoraces. Mild increased markings in the mid right lung. IMPRESSION: Tiny pleural effusions with a small mid right lung infiltrates versus atelectasis. Electronically signed by Oswaldo Walker 07/03/2019 2:36 PM 07/03/19 1436 Interpreting Physician: Oswaldo Walker MD Dictated Date/Time: 07/03/19 1434 cc: Doretha Camilo MD; Malcolm Hinds MD) - CT/MRI 1 CT Study: Thorax (Signed EXAM: CT ANGIOGRM PULMONARY ARTERIES HISTORY: sob, hypoxia TECHNIQUE: CT chest with intravenous contrast. Pulmonary arterial protocol with MIP images. COMPARISON: 03/18/2019 FINDINGS: There are small bilateral pleural effusions. The one on the right measures 2.8 cm posteriorly and inferiorly in the midline and the one on the left measures 2.6 cm. There is a left-sided chest tube. No pneumothorax. Normal opacification of the pulmonary arteries and their major branches. No aortic aneurysm or dissection. Mild cardiomegaly. There are scattered small nodules and patchy infiltrates bilaterally. Basilar atelectasis. Worsening lytic areas in the upper and mid thoracic spine. No enlarged lymph nodes. Bilateral breast implants. IMPRESSION: 1.No pulmonary emboli 2.Development of small bilateral pleural effusions and multi focal patchy infiltrates 3.Development of multiple small scattered nodules 4.Worsening lytic areas throughout the spine This exam was performed using automated exposure control, adjustment of mA or kV according to patient size, and/or use of iterative reconstruction technique. Electronically signed by Oswaldo Walker 07/03/2019 6:13 PM) - CONSULTS/PCP/HOSPITALIST Notification #1 *Consult/PCP/Hospitalist*: Dr Villalta Time Discussed: 19:01 Consult Disposition: Admit (accepts admission) Departure - Departure Date of Disposition Decision: 07/03/19 (n) Time of Disposition Decision: 18:59 DIAGNOSIS: Hypoxia, Pleural effusion Pneumonia Qualifiers: Pneumonia type: due to unspecified organism Laterality: bilateral Lung location : unspecified part of lung Qualified Code(s): J18.9 - Pneumonia, unspecified organism Disposition: ADMITTED INPATIENT 09 Certified Medical Emergency: Emergent Condition: Fair Referrals and Follow-Ups: Malcolm Hinds MD [Primary Care Provider] - - Critical Care Note This patient required my direct & personal management of CC.: Yes Total Time (mins): 36 Critical Care Statement: This patient required my direct personal management to treat or rule out processes, the absence of which, could potentiallly result in sudden, clinically significant life or limb threatening deterioration. Attestation - Physician/ JODY Attestation Patient care was provided by Advanced Practice Provider:: No The physician spent face to face time with patient:: Yes Advanced Practice Provider documentation review:: Supervising physician onsite and consulted in the evaluation and care of this patient. The physician did have a face to face encounter with the patient. This chart was documented by the indicated scribe, (Lashaun Dickey Scribe) and accurately reflects the services I performed and decisions made by me, Kendall Hi MD, as attested by the provider's signature.
[2019-07-03] MEDS ORDERED: ROBAXIN PO PRN (20:08)
[2019-07-03] MEDS ORDERED: VANCOMYCIN IV PER PHARMACY MISC SCH (20:08)
[2019-07-03] MEDS ORDERED: OXY IR PO PRN (20:14)
[2019-07-03] MEDS ORDERED: MAXIPIME 2 GM/NS 2 GM/100 ML IVPB IV ONE (21:00)
[2019-07-03] MEDS ORDERED: VANCOMYCIN 1,500 MG in NS 250 ML IV ONE (21:00)
--- NOTE | 2019-07-03 21:17 | HISTORY AND PHYSICAL ---
CHIEF COMPLAINT: Shortness of breath. HISTORY OF PRESENT ILLNESS: This is a 59-year-old female who is a breast cancer patient. She has stage IV disease, I believe, followed by Dr. Dietz, still undergoing treatment with Avastin I believe and had her treatment about a week ago. She has grade 2 infiltrating ductal carcinoma, progesterone receptor positive. She is on Avastin and Taxotere or had been. She came in with shortness of breath, did not really improve. She was somewhat hypoxic, struggling to breathe but improved with breathing treatments. She has had a productive cough with yellow sputum. No fevers, chills, night sweats. No orthopnea, no PND. She pretty much has dyspnea all around. Last chemo treatment was 3 days ago. Workup in the ER again revealed hypoxia. Her saturations were 77%. She was tachycardic. Now she is down to nasal cannula. Her PE CT scan was negative for PE. She had some small effusions, nodules, worsening lytic lesions, multifocal patchy infiltrates, so most likely pneumonia, certainly could be related to cancer. The patient was admitted for treatment. She has been placed on antibiotics. She did not meet criteria for sepsis based on a normal lactate level, and she does carry a diagnosis of congestive heart failure. Her most recent echocardiogram showed an EF of 25% to 30%. That was in 2017. She had an echocardiogram in August, which showed an EF of 50% with grade 1 diastolic dysfunction. The patient admitted for acute hypoxic respiratory failure due to pneumonia presumably. PAST MEDICAL HISTORY: 1. Breast cancer status post bilateral mastectomy and currently undergoing chemo, reported history of CHF, but her last showed only diastolic dysfunction. 2. Hypertension. 3. Recurrent pleural effusion for which she has a PleurX catheter that has been draining of fluid usually somewhere in the 150 range. There has not been a change in the quality of fluid per the . PAST SURGICAL HISTORY: Again the bilateral mastectomy. She has metastatic lung cancer. She has also had a hysterectomy. SOCIAL HISTORY: No tobacco. FAMILY HISTORY: Negative. SOCIAL HISTORY: No tobacco or alcohol. ALLERGIES: To adhesive tape. MEDICATION LIST: She is on amlodipine 10, Cozaar 100 daily, Klor-Con 20 daily, Lasix 20 daily, MS Contin 30 q.12, oxycodone q.6, Pepcid 20 daily, Lyrica 75 daily, Robaxin p.r.n., Toprol-XL 25 daily. REVIEW OF SYSTEMS: Otherwise negative times a 10-point review of systems. PHYSICAL EXAMINATION: VITAL SIGNS: Blood pressure is 102/63, heart rate of 106, respiratory rate of 20, temperature 99.1 degrees, it says 77% on room air. The last recorded vitals were at 2 p.m. It is now 7:30. Her sats looked good in there. I think she was on 4 to 5 L. GENERAL: Well-developed female appears in mild respiratory distress. HEAD EXAM: Normocephalic, atraumatic. EYE EXAM: Pupils equal, round, reactive to light. I think she had pigmented contact lenses in place. NECK EXAM: Supple. CARDIOVASCULAR: Regular rate and rhythm. No murmurs, gallops, or rubs. PULMONARY EXAM: She had good air movement throughout. A little bit of bronchial breath sounds at the left base. GASTROINTESTINAL: Soft, nontender, nondistended. Bowel sounds are positive. NEUROLOGIC: Cranial nerves 2 through 12 are grossly intact MUSCULOSKELETAL: 4/5 in all 4 extremities. LABORATORY DATA: White count is 25,000, H and H 11 and 34, platelets 307,000. pH 7.47, pCO2 35, pO2 135. Basic was normal. Urine was okay. IMAGING: CT showed patchy infiltrates. No PE. ASSESSMENT: 1. This is a 59-year-old female with history of I believe this is breast cancer and there is no lung cancer, I do not think she has lung cancer, presenting with respiratory failure and pneumonia, acute respiratory failure. We ruled out PE. It does look like she probably has pneumonia versus possibility of carcinomatosis, but we will continue empiric antibiotics. She has been placed on vancomycin, and I think Zosyn, probably will just continue. We will probably do cefepime. 2. Metastatic breast cancer, which does look like it is progressing. She has more lytic lesions despite chemo, but I am not sure if she has completed her regimen. We will consult Dr. Dietz or his team to follow along. Continue deep venous thrombosis prophylaxis, gastrointestinal prophylaxis. 3. Hypertension and congestive heart failure. She appears to be compensated, but we probably do need to keep an eye on her fluid status, and we will continue to follow closely. This is a patient of Dr. Malcolm Hinds. 4. Pleural effusion. We may need to assay some of the fluid to rule out infection. We will monitor that. It did not look like there was a large fluid collection based on the CT scan, but we will continue to monitor. cc: Marco Villalta MD
[2019-07-03] MEDS: MS CONTIN PO SCH (22:29)
[2019-07-03] MEDS: DUONEB (A & A) INH SCH (22:58)
[2019-07-04] MEDS: DUONEB (A & A) INH SCH ×4 (04:08→22:38)
[2019-07-04] MEDS: LOVENOX SUBQ SCH (06:23)
[2019-07-04 07:59] LABS: BASO# 0.02 X1000 (0.0-0.2); BASO% 0.1 % (0.0-0.8); EOS# 0.02 X1000 (0.0-0.7); EOS% 0.1 % (0.0-10.0); HEMATOCRIT 33.4 % (37.0-47.0); IMM GRAN# 2.21 X1000 (0.0-0.04); IMM GRAN% 8.2 % (0.0-0.5); LYMPH# 0.67 X1000 (1.2-3.4); LYMPH% 2.5 % (20.5-51.1); MCHC 29.9 g/dL (33-37); MCV 96.8 FL (81-99); MONO# 1.17 X1000 (0.11-0.59); MONO% 4.4 % (1.7-9.3); MPV 10.1 FL (7.4-10.4); NEUT% 84.7 % (42.2-75.2); PLT 295 X1000 (130-400); RBC 3.45 XMIL (4.2-5.4); RDW 15.4 % (11.5-14.5); WBC 26.79 X1000 (4.8-10.8)
[2019-07-04 08:21] LABS: AGAP 12; BUN 7 mg/dL (8-22); CALCIUM 8.8 mg/dL (8.8-10.2); CHLORIDE 103 mmol/L (98-107); COSMO 277; CREATININE 0.3 mg/dL (0.5-0.9); ESTIMATED GFR > 60; GLUCOSE 92 mg/dL (70-104); POTASSIUM 3.5 mmol/L (3.5-5.1); SODIUM 140 mmol/L (136-145); TCO2 25 mmol/L (25-35)
[2019-07-04] MEDS: MAXIPIME 2 GM/NS 2 GM/100 ML IVPB IV SCH ×2 (08:47→21:18)
[2019-07-04] MEDS: COZAAR PO SCH (08:47)
[2019-07-04] MEDS: PEPCID PO SCH (08:47)
[2019-07-04] MEDS: MS CONTIN PO SCH ×2 (08:48→21:18)
[2019-07-04] MEDS: NORVASC PO SCH (08:48)
[2019-07-04] MEDS: TOPROL XL PO SCH (08:48)
[2019-07-04] MEDS: LYRICA PO SCH (08:48)
[2019-07-04] MEDS: LASIX PO SCH (08:48)
[2019-07-04] MEDS: KLOR-CON POWDER PACKET PO SCH (08:49)
[2019-07-04 09:53] LABS: BANDS 18 % (0-1); LYMPHS 6 % (21-51); MONO 2 % (1-9); NRBC 1 % (0-0); SEGS 74 % (42-75)
[2019-07-04] MEDS: VANCOMYCIN 1 GM/NS 1 GM/250 ML IVPB IV SCH ×2 (10:50→23:09)
[2019-07-04] MEDS ORDERED: ZOFRAN IV PRN (13:25)
[2019-07-04] MEDS: MIRALAX PO SCH (14:37)
[2019-07-04] MEDS: TYLENOL PO PRN (14:37)
--- NOTE | 2019-07-04 16:54 | PROGRESS NOTE ---
DATE: 07/04/2019 SUBJECTIVE: She still feels weak, tired. OBJECTIVE: She is still having temperatures, 100.2 degrees today. Cardiovascular regular rate and rhythm. Pulmonary, bilateral breath sounds clear to auscultation. GI was soft, nontender, nondistended. Bowel sounds are positive. Cardiovascular, regular rate and rhythm. Pulmonary, bilateral breath sounds diminished at bases. GI was soft, nontender, nondistended. Bowel sounds are positive. LABORATORY DATA: White count is still high at 26,000. Hemoglobin and hematocrit 10 and 33, platelets 295,000. She does have 18% bands. Her basic was normal. All cultures thus far are normal including blood and flu. PROBLEM LIST: 1. Multilobar pneumonia. We will continue empiric antibiotics. She has been on vancomycin and Zosyn. She is on vancomycin and cefepime. I am going to go ahead and culture her pleural fluid. I do not think it is necessarily infected, but it is very cloudy. They got about 250 mL off today. She has a PleurX catheter. 2. Metastatic breast cancer. She is still getting treatment per Dr. Dietz. I have let him know that she is here and we will continue to monitor. 3. Hypertension. Continue regular medications. DISPOSITION: Pending her clinical status. We will see how things look. cc: Marco Villalta MD
[2019-07-04 17:28] LABS: AMYLASE BODY FLUID 38 U/L; GLUCOSE BODY FLUID 90 mg/dL; LDH BODY FLUID 552 U/L; TOTAL PROT BODY FLUID 3.3 g/dL
[2019-07-04 17:46] LABS: BODY FLUID SOURCE PLEURAL FLUID; PH BODY FLUID 7; SPECIMEN PLEURAL FLUID
[2019-07-04 17:48] LABS: MONOS 19 %; POLYS 81 %; WBC BF 7659 /cumm
[2019-07-05] MEDS: DUONEB (A & A) INH SCH ×4 (04:03→22:06)
[2019-07-05] MEDS: LOVENOX SUBQ SCH (05:57)
[2019-07-05] MEDS: MS CONTIN PO SCH ×2 (09:40→20:14)
[2019-07-05] MEDS: LYRICA PO SCH (09:40)
[2019-07-05] MEDS: TOPROL XL PO SCH (09:40)
[2019-07-05] MEDS: NORVASC PO SCH (09:41)
[2019-07-05] MEDS: COZAAR PO SCH (09:41)
[2019-07-05] MEDS: MIRALAX PO SCH (09:41)
[2019-07-05] MEDS: LASIX PO SCH (09:41)
[2019-07-05] MEDS: PEPCID PO SCH (09:41)
[2019-07-05] MEDS: MAXIPIME 2 GM/NS 2 GM/100 ML IVPB IV SCH ×2 (09:41→20:15)
[2019-07-05] MEDS: KLOR-CON POWDER PACKET PO SCH (09:41)
[2019-07-05] MEDS: VANCOMYCIN 1 GM/NS 1 GM/250 ML IVPB IV SCH ×2 (10:54→23:39)
--- NOTE | 2019-07-05 17:21 | PROGRESS NOTE ---
DATE: 07/05/2019 SUBJECTIVE: The patient has no major complaints. OBJECTIVE: Blood pressure is 100/68, heart rate of 105, respiratory rate of 18, temperature of 100.5 degrees, 92 to 94 percent.Cardiovascular: Regular rate and rhythm. Pulmonary: Bilateral breath sounds diminished at the bases. IMPRESSION: 1. Pneumonia, still not really clear what the source is. Her fluid does look transudative. It does not quite meet criteria for empyema. She has a PleurX catheter in place. Her current antibiotic regimen is cefepime and vancomycin. I am going to consult Pulmonary and we will see how things look. 2. Breast cancer, metastatic. I am not sure if that is contributing to these issues. We are going to continue to follow. 3. Recurrent pleural effusion, which is transudative based on numbers and will be intermittently removed. It did not look loculated. The catheter site looks okay. She is on vancomycin and cefepime. So far cultures are negative. Prognosis is guarded. Her white count, we did not get a count today for some reason, but will see what it is. She has been on Neupogen so that make things a bit difficult as far as estimating her white count as a sign of infection but we will continue to follow. cc: Marco Villalta MD
[2019-07-06] MEDS: TYLENOL PO PRN (00:26)
[2019-07-06] MEDS: DUONEB (A & A) INH SCH ×4 (03:46→22:56)
[2019-07-06] MEDS: LOVENOX SUBQ SCH (05:19)
--- NOTE | 2019-07-06 07:45 | Diag Imaging Result Doc PS360 ---
EXAM: CHEST-PORTABLE INDICATION: dyspnea TECHNIQUE: One view COMPARISON: 07/03/2019 FINDINGS: Support tubes and lines are in stable positions. Lung volumes are somewhat lower than the previous study. There are increased interstitial markings as compared to the previous study suggesting development of mild edema. No other new consolidation is identified. Cardiac silhouette is stable. IMPRESSION: Lower lung volumes and increased interstitial markings suggesting development of mild edema. Electronically signed by Isra Stevenson 07/06/2019 7:43 AM
[2019-07-06] MEDS: MIRALAX PO SCH (08:32)
[2019-07-06] MEDS: MS CONTIN PO SCH ×2 (08:33→20:07)
[2019-07-06] MEDS: PEPCID PO SCH (08:33)
[2019-07-06] MEDS: TOPROL XL PO SCH (08:33)
[2019-07-06] MEDS: KLOR-CON POWDER PACKET PO SCH (08:33)
[2019-07-06] MEDS: LYRICA PO SCH (08:34)
[2019-07-06] MEDS: COZAAR PO SCH (08:34)
[2019-07-06] MEDS: NORVASC PO SCH (08:34)
[2019-07-06] MEDS: LASIX PO SCH (08:34)
[2019-07-06] MEDS: MAXIPIME 2 GM/NS 2 GM/100 ML IVPB IV SCH ×2 (08:35→20:07)
[2019-07-06 08:55] LABS: BASO# 0.05 X1000 (0.0-0.2); BASO% 0.2 % (0.0-0.8); EOS# 0.06 X1000 (0.0-0.7); EOS% 0.3 % (0.0-10.0); HEMATOCRIT 33.6 % (37.0-47.0); HEMOGLOBIN 9.9 g/dL (12.0-16.0); IMM GRAN# 1.18 X1000 (0.0-0.04); IMM GRAN% 5.1 % (0.0-0.5); LYMPH# 0.96 X1000 (1.2-3.4); LYMPH% 4.1 % (20.5-51.1); MCH 28.6 PG (27-31); MCHC 29.5 g/dL (33-37); MCV 97.1 FL (81-99); MONO# 1.36 X1000 (0.11-0.59); MONO% 5.9 % (1.7-9.3); MPV 9.9 FL (7.4-10.4); NEUT% 84.4 % (42.2-75.2); PLT 295 X1000 (130-400); RBC 3.46 XMIL (4.2-5.4); WBC 23.21 X1000 (4.8-10.8)
[2019-07-06 09:14] LABS: AGAP 12; BUN 6 mg/dL (8-22); CALCIUM 8.7 mg/dL (8.8-10.2); CHLORIDE 101 mmol/L (98-107); COSMO 273; CREATININE 0.3 mg/dL (0.5-0.9); ESTIMATED GFR > 60; GLUCOSE 95 mg/dL (70-104); POTASSIUM 3.7 mmol/L (3.5-5.1); SODIUM 138 mmol/L (136-145); TCO2 25 mmol/L (25-35)
[2019-07-06 09:17] LABS: BANDS 18 % (0-1); EOS 2 % (1-10); HYPOCHROM 1+; LYMPHS 2 % (21-51); MONO 8 % (1-9); SEGS 68 % (42-75)
[2019-07-06] MEDS: LASIX IV SCH (10:58)
[2019-07-06] MEDS: VANCOMYCIN 1 GM/NS 1 GM/250 ML IVPB IV SCH (10:58)
--- NOTE | 2019-07-06 17:38 | PROGRESS NOTE ---
DATE: 07/06/2019 SUBJECTIVE: Patient has no major complaints. She still seems weak and tired. OBJECTIVE: Blood pressure 108/64, heart rate of 108, respiratory rate 18, temperature 98.8 degrees, 100% on 2 L.Cardiovascular: Regular rate and rhythm. Pulmonary: Bilateral breath sounds clear to auscultation. GI: Soft, nontender, nondistended. Bowel sounds are positive. LABS: White count 23, hemoglobin and hematocrit 9.9 and 33, platelets 295,000. Basic was normal. PROBLEM LIST: 1. Pneumonia. We will continue treatment and follow closely. She is empirically on antibiotics which includes vancomycin and cefepime. This will be day 2 of those. All cultures are thus far clear including a pleural culture. Chest x-ray shows possibly some more edema. 2. Metastatic breast cancer. Dr. Dietz has been consulted. We are going to continue to follow. She is status post chemo. 3. Recurrent pleural effusion. She has a PleurX catheter for which she gets intermittent drainage. Fluid has not grown out anything and is consistent more with an exudative, I know I said transudative previously but it is an exudative effusion but not probably that may just be associated with a malignancy. 4. Congestive heart failure. She does have a history of congestive heart failure so we are going to continue with her medicines and give her a little bit of diuresis and see how she does. cc: Marco Villalta MD
[2019-07-07] MEDS: NS IV SCH ×2 (00:44→14:24)
[2019-07-07] MEDS: VANCOMYCIN IV SCH ×2 (00:44→14:24)
[2019-07-07] MEDS: DUONEB (A & A) INH SCH ×4 (03:39→23:19)
[2019-07-07] MEDS: LOVENOX SUBQ SCH (05:35)
--- NOTE | 2019-07-07 07:10 | PULMONOLOGY CONSULTATION ---
DATE: 07/06/2019 REQUESTING CLINICIAN: Dr. Villalta. REASON FOR CONSULTATION: Possible refractory pneumonia. HISTORY OF PRESENT ILLNESS: Ms. Soria is a 59-year-old, black female, diagnosed with breast cancer in 2015. The patient underwent biopsy of a right lower lobe nodule in 07/2018, which revealed recurrent breast cancer. She underwent a CT scan of the chest, abdomen, and pelvis in March, which revealed the development of a new left-sided pulmonary nodule, and increase in the right lower lobe nodule, but no effusions. The patient reports she has subsequently developed extensive bony metastatic disease involving the skull and spine. She has developed increasing shortness of breath, and developed an intractable pleural effusion in May. A PleurX catheter was placed by Dr. Terry. PAST MEDICAL HISTORY/PROBLEM LIST: 1. Metastatic breast cancer as per above. 2. Malignant pleural effusion, status post PleurX catheter placement. 3. Systolic heart failure. 4. History of diastolic heart failure. SOCIAL HISTORY: No alcohol or tobacco use. FAMILY HISTORY: Noncontributory to current presentation. REVIEW OF SYSTEMS: Notable for a dry cough, profound fatigue, with progressive clinical decline over the last 2 months. PHYSICAL EXAMINATION: General: A frail, chronically ill-appearing, black female, who is resting comfortably in her bed. Vital Signs: Blood pressure 108/64, heart rate 108, respiratory rate 18, oxygen saturation 100%. HEENT: Pupils are equal and reactive. Oropharynx appears clear. Neck: Supple. Chest: Decreased breath sounds in both lung bases. Cardiac: S1, S2. Abdomen: Soft. Extremities: Trace edema. IMAGING: CT pulmonary angiogram reveals bilateral pleural effusions with a PleurX catheter on the left, multiple bilateral pulmonary nodules, and worsening lytic lesions of the spine. IMPRESSION: A 59-year-old with: 1. Bilateral pleural effusions. 2. Status post PleurX catheter for malignant effusion. 3. Progressive metastatic disease within the lungs. 4. Progressive lytic disease in the spine. 5. Acute hypoxemic respiratory failure. 6. Systolic heart failure. PLAN: 1. Anticipate the need for oxygen at the time of discharge. 2. Continue diuretics and pain control. 3. Prognosis appears poor. cc: Raghavendra Welch MD
[2019-07-07] MEDS: MAXIPIME 2 GM/NS 2 GM/100 ML IVPB IV SCH ×2 (08:34→20:44)
[2019-07-07] MEDS: LASIX IV SCH (08:35)
[2019-07-07] MEDS: PEPCID PO SCH (08:35)
[2019-07-07] MEDS: COZAAR PO SCH (08:35)
[2019-07-07] MEDS: KLOR-CON POWDER PACKET PO SCH (08:35)
[2019-07-07] MEDS: NORVASC PO SCH (08:36)
[2019-07-07] MEDS: LASIX PO SCH (08:36)
[2019-07-07] MEDS: TOPROL XL PO SCH (08:36)
[2019-07-07] MEDS: MS CONTIN PO SCH ×2 (08:39→20:44)
[2019-07-07] MEDS: LYRICA PO SCH (08:39)
[2019-07-07 08:50] LABS: BASO# 0.03 X1000 (0.0-0.2); BASO% 0.2 % (0.0-0.8); EOS# 0.04 X1000 (0.0-0.7); EOS% 0.2 % (0.0-10.0); HEMATOCRIT 32.6 % (37.0-47.0); HEMOGLOBIN 9.7 g/dL (12.0-16.0); IMM GRAN# 0.38 X1000 (0.0-0.04); LYMPH# 0.72 X1000 (1.2-3.4); LYMPH% 3.7 % (20.5-51.1); MCH 28.9 PG (27-31); MCHC 29.8 g/dL (33-37); MONO# 1.59 X1000 (0.11-0.59); MONO% 8.2 % (1.7-9.3); MPV 9.9 FL (7.4-10.4); NEUT# 16.53 X1000 (1.4-6.5); NEUT% 85.7 % (42.2-75.2); PLT 276 X1000 (130-400); RBC 3.36 XMIL (4.2-5.4); WBC 19.29 X1000 (4.8-10.8)
[2019-07-07 09:02] LABS: AGAP 10; BUN 7 mg/dL (8-22); CALCIUM 8.6 mg/dL (8.8-10.2); CHLORIDE 99 mmol/L (98-107); COSMO 266; CREATININE 0.3 mg/dL (0.5-0.9); ESTIMATED GFR > 60; GLUCOSE 95 mg/dL (70-104); MAGNESIUM 2.2 mg/dL (1.5-2.7); SODIUM 134 mmol/L (136-145); TCO2 25 mmol/L (25-35)
[2019-07-07 09:17] LABS: ANISOCYTOSIS 1+; HYPOCHROM 1+; LYMPHS 4 % (21-51); MONO 8 % (1-9); NRBC 1 % (0-0); POIKILOCYTOSIS 1+; POLYCHROM 1+; SEGS 88 % (42-75)
[2019-07-07] MEDS: MIRALAX PO SCH (11:11)
[2019-07-07] MEDS: TYLENOL PO PRN ×2 (11:12→20:44)
--- NOTE | 2019-07-07 15:13 | HEMO/ONC CONSULTATION ---
DATE: 07/07/2019 ADMITTING PHYSICIAN: Dr. Marco Villalta. REQUESTING PHYSICIAN: Dr. Marco Villalta. We appreciate this consult. CHIEF COMPLAINT: Metastatic breast cancer. HISTORY OF PRESENT ILLNESS: Ms. Jesusita Soria is a 59-year-old female well known to Dr. Dietz with a history of metastatic breast cancer with malignant pleural effusion with PleurX catheter, mediastinal lymphadenopathy, and brain metastasis. The patient underwent radiation therapy but was discontinued secondary to severe esophagitis. The patient is status post cycle 1 Taxotere on 06/30. Her next dose is scheduled for July 14, 2019. The patient presented to [facility] for evaluation secondary to shortness of breath. Upon evaluation, the patient was found to be significantly hypoxic with O2 saturations in the low 80s. Additionally, she had significant work of breathing and dyspnea. She reported a productive cough for yellow sputum. The patient denied fever, chills, or night sweats. The patient was sent to [facility] for evaluation. Oxygen saturation was found to be 77% and the patient was tachycardic. She was placed on nasal cannula O2 and chest x-ray was obtained which revealed tiny pleural effusions with small mid right lung infiltrate versus atelectasis. The patient was admitted secondary to recurrent pleural effusion and probable pneumonia. We are consulted as the patient is well known to us. PAST MEDICAL HISTORY: 1. Metastatic breast cancer. 2. Congestive heart failure. 3. Hypertension. 4. Recurrent malignant pleural effusion. 5. Brain metastasis status post radiation therapy. PAST SURGICAL HISTORY: 1. Bilateral mastectomy. 2. Hysterectomy. FAMILY HISTORY: Negative for hematologic or oncologic disease. SOCIAL HISTORY: The patient does not use tobacco, alcohol, or illicit drugs. MEDICATIONS ON ADMISSION: 1. Amlodipine. 2. Cozaar. 3. Klor-Con. 4. Lasix. 5. MS Contin. 6. Oxycodone. 7. Pepcid. 8. Lyrica. 9. Robaxin. 10. Toprol-XL. ALLERGIES: Are to adhesive tape. REVIEW OF SYSTEMS: A 14 point review of systems was obtained and is negative except for mentioned in HPI. PHYSICAL EXAMINATION: General: Ms. Jesusita Soria is a pleasant, 59-year-old female, sitting up at the bedside, slightly dyspneic but otherwise in no immediate distress. Vital Signs: Temperature 99.0 degrees, blood pressure 103/62, heart rate 99, respirations 18, O2 saturation 94% on 4 L nasal cannula O2. HEENT: Normocephalic, atraumatic. Mucous membranes are slightly pale and dry. Sclera is anicteric. Extraocular movements intact. Neck: Supple. Lungs: Decreased breath sounds in the bases. CV: S1, S2 is heard without murmur, rub, or gallop. Abdomen: Soft, nondistended, nontender. Bowel sounds positive in all quadrants. No rebound or guarding noted. Extremities: Without clubbing or cyanosis. She does have trace bilateral lower extremity edema. Dermatologic: No rashes, bruises, or lesions. Neurologic: The patient is awake, alert, and oriented x3, but mildly confused to situation. The patient has no overt focal deficit. LABORATORY DATA: Hemoglobin 9.9, hematocrit 33.6, white blood cell count 23.21, platelet count 295,000. Sodium 138, potassium 3.7, chloride 101, CO2 is 25, BUN 6, creatinine 0.3, and glucose is 95. IMAGING STUDIES: Chest x-ray reveals mild edema. Pulmonary arteriogram reveals no pulmonary emboli. Small bilateral pleural effusions are seen with multifocal infiltrates. Additionally, multiple small scattered nodules are seen with worsening spinal lytic lesions. ASSESSMENT AND PLAN: 1. Metastatic breast cancer with malignant pleural effusion with PleurX catheter, mediastinal lymphadenopathy, and brain metastasis. The patient is status post radiation therapy, which was discontinued secondary to severe esophagitis. The patient is status post cycle 1 Taxotere on 06/30/2019. Next dose is due 07/14/2019. 2. Pneumonia. Currently on cefepime and vancomycin. 3. Congestive heart failure. Stable at this time. 4. Recurrent pleural effusions. Pulmonology has been consulted. 5. We will follow along with you and make further recommendations pending outcomes. The above reflects the history, exam, assessment, and plan of Dr. Dietz. Dictated by MICHEAL Cox for Jesse Dietz MD cc: MICHEAL Cox MD
--- NOTE | 2019-07-07 18:10 | PROGRESS NOTE ---
DATE: 07/07/2019 SUBJECTIVE: The patient has no major complaints. OBJECTIVE: Blood pressure is 96/56, heart rate of 100, respiratory rate 18, temperature 98.3 degrees, 98% on 3.5 L.Cardiovascular: Regular rate and rhythm. Pulmonary: Bilateral breath sounds, clear to auscultation. GI: Soft, nontender, nondistended. Bowel sounds are positive. LABORATORY DATA: White count is 19, hemoglobin and hematocrit 9 and 32, platelets 276,000. Basic was normal. ASSESSMENT AND PLAN: 1. Pneumonia. We will continue empiric antibiotics. He is on day 3 of vancomycin and cefepime. Pulmonary is following. Chest x-ray shows more edema than pneumonia, but she is still having some pleural effusions. 2. Metastatic breast cancer. Aware of diagnosis. She is getting chemotherapy. Tumor burden based on the scans that we have looks to be more, despite the treatment. She has a recurrent malignant pleural effusion. Pathology saw cancer cells in this pleural effusion as well, but apparently that has been the case. 3. Recurrent pleural effusion. She has a PleurX. She is due to have drainage tomorrow. 4. Acute systolic congestive heart failure. She seems to be doing okay. Plan for some diuresis and monitor. 5. Disposition: I think she will need home oxygen. We will work on evaluating her for that, and possibly home if afebrile for 24 hours. cc: Marco Villalta MD
--- NOTE | 2019-07-07 22:29 | PULMONOLOGY PROGRESS NOTE ---
DATE: 07/07/2019 SUBJECTIVE: The patient has dyspnea with movement. She has a cough, which is nonproductive. She has had some low-grade temperature elevations into the low 100s. OBJECTIVE: Vital signs: Blood pressure 96/56, heart rate 100, respiratory rate 18, oxygen saturation 98% on supplemental oxygen. HEENT: Pupils are equal and reactive. Oropharynx appears clear. Neck: Is supple. Chest: Reveals diminished breath sounds bilaterally. Cardiac exam: S1-S2. Abdomen: Is soft. Extremities: Are without edema. LABORATORIES: White blood count 19.29, hemoglobin 9.7, platelet count 276,000. Blood cultures: Negative growth to date. Sodium 134, potassium 4.0, chloride 99, bicarbonate 25, BUN 7, creatinine 0.3. IMPRESSION: A 59-year-old with 1. Widely metastatic breast cancer. 2. Pleural effusions with PleurX catheter placed in the left chest for a malignant effusion. 3. Hypoxemic respiratory failure. 4. Systolic heart failure. 5. Leukocytosis with low-grade fevers. DISCUSSION: Unfortunate 59-year-old with problems outlined above. She does have some areas of consolidation on chest x-ray. It is not clear whether this is malignant or infectious in nature. She does not have significant sputum production. Her leukocytosis and radiographic infiltrates might be related to her tumor. However, she has had some slight decrease in white blood count. RECOMMENDATIONS: 1. Continue diuretics and pain control. 2. Continue current antibiotic regimen. 3. Prognosis is poor. cc: Raghavendra Welch MD
[2019-07-08] MEDS: NS IV SCH (00:58)
[2019-07-08] MEDS: VANCOMYCIN IV SCH (00:58)
[2019-07-08] MEDS: DUONEB (A & A) INH SCH ×4 (03:43→22:08)
[2019-07-08] MEDS: LOVENOX SUBQ SCH (05:21)
[2019-07-08] MEDS: TYLENOL PO PRN ×2 (05:21→21:31)
[2019-07-08 08:48] LABS: AGAP 13; BUN 8 mg/dL (8-22); CALCIUM 8.5 mg/dL (8.8-10.2); CHLORIDE 98 mmol/L (98-107); COSMO 270; CREATININE 0.4 mg/dL (0.5-0.9); ESTIMATED GFR > 60; GLUCOSE 91 mg/dL (70-104); SODIUM 136 mmol/L (136-145); TCO2 25 mmol/L (25-35)
[2019-07-08 09:22] LABS: BASO# 0.04 X1000 (0.0-0.2); BASO% 0.2 % (0.0-0.8); EOS# 0.04 X1000 (0.0-0.7); EOS% 0.2 % (0.0-10.0); HEMATOCRIT 33.6 % (37.0-47.0); HEMOGLOBIN 10.2 g/dL (12.0-16.0); IMM GRAN# 0.44 X1000 (0.0-0.04); IMM GRAN% 1.9 % (0.0-0.5); LYMPH# 0.88 X1000 (1.2-3.4); LYMPH% 3.8 % (20.5-51.1); MCH 29.5 PG (27-31); MCHC 30.4 g/dL (33-37); MCV 97.1 FL (81-99); MONO# 1.51 X1000 (0.11-0.59); MONO% 6.5 % (1.7-9.3); MPV 10.2 FL (7.4-10.4); NEUT% 87.4 % (42.2-75.2); PLT 300 X1000 (130-400); RBC 3.46 XMIL (4.2-5.4); RDW 16.1 % (11.5-14.5); WBC 23.41 X1000 (4.8-10.8)
[2019-07-08] MEDS: NORVASC PO SCH (09:29)
[2019-07-08] MEDS: LYRICA PO SCH (09:29)
[2019-07-08] MEDS: KLOR-CON POWDER PACKET PO SCH (09:29)
[2019-07-08] MEDS: MAXIPIME 2 GM/NS 2 GM/100 ML IVPB IV SCH ×2 (09:29→21:39)
[2019-07-08] MEDS: PEPCID PO SCH (09:29)
[2019-07-08] MEDS: COZAAR PO SCH (09:29)
[2019-07-08] MEDS: MS CONTIN PO SCH ×2 (09:29→21:31)
[2019-07-08] MEDS: MIRALAX PO SCH (09:29)
[2019-07-08] MEDS: LASIX PO SCH (09:29)
[2019-07-08] MEDS: TOPROL XL PO SCH (09:30)
[2019-07-08 11:48] LABS: BANDS 16 % (0-1); LYMPHS 4 % (21-51); MONO 6 % (1-9); SEGS 72 % (42-75)
[2019-07-08] MEDS ORDERED: VANCOMYCIN 1,750 MG in NS 250 ML IV SCH (14:00)
--- NOTE | 2019-07-08 19:32 | PROGRESS NOTE ---
DATE: 07/08/2019 SUBJECTIVE: The patient has no major complaints. She is breathing about the same. OBJECTIVE: Vital signs: Heart rate is 118, respiratory rate 32. She is on a Venturi mask. Blood pressure 101/68. Her temp is a 100.5 degrees and it has been febrile all day, 101.3 this morning. Cardiovascular: Regular rate and rhythm. Pulmonary: Bilateral breath sounds. Clear to auscultation. GI: Abdomen was soft, nontender, nondistended. Bowel sounds are positive. LABORATORY DATA: White count up to 23, H H 10 and 33, platelets 300,000. Basic was normal. Micro is still completely negative. PROBLEM LIST: 1. Pneumonia. She is on empiric antibiotics, vancomycin and cefepime and really just not much better. Chest x-ray we have not gotten in a couple days, but looks okay. I am not sure if this could be related primarily to the cancer, but we may add anti-fungal. 2. Metastatic breast cancer with malignant pleural effusion. She had been getting chemo, but now she has got persistent fevers. Infectious Disease is unavailable for consult, so we are going to continue as she does. 3. Recurrent pleural effusion. Plan will be drained today and follow. 4. Acute systolic congestive heart failure. She is on diuretics. DISPOSITION: I anticipate she will need oxygen, but she has got to be, I think, afebrile for 24 hours first. I will go ahead and switch her to Zyvox and add micafungin. cc: Marco Villalta MD
[2019-07-08] MEDS: MYCAMINE 100 MG in NS 100 ML IV SCH (21:30)
[2019-07-08] MEDS: ZYVOX 600 MG/D5W 600 MG/300 ML IVPB IV SCH (21:39)
--- NOTE | 2019-07-09 00:03 | PULMONOLOGY PROGRESS NOTE ---
DATE: 07/08/2019 SUBJECTIVE: The patient reports she feels weak. OBJECTIVE: She is having ongoing intermittent fevers, and current fever is 101.8 degrees. Blood pressure 111/61, heart rate 112, respiratory rate 20, oxygen saturation 98%. HEENT: Pupils are equal and reactive. Oropharynx appears clear. Neck is supple. Chest reveals decreased breath sounds, right greater than left base. Cardiac exam: Increased rate. Regular rhythm. Abdomen is soft. Extremities reveal 1+ edema. LABORATORY DATA: White blood count 23.41, hemoglobin 10.2, platelet count 300,000. Sodium 136, potassium 4.0, chloride 98, bicarbonate 25, BUN 8, creatinine 0.4. IMPRESSION: A 59-year-old with: 1. Widely metastatic breast cancer. 2. Pleural effusions, with PleurX catheter in the left hemithorax. 3. Hypoxemic respiratory failure. 4. Systolic heart failure. 5. Ongoing leukocytosis with fevers. DISCUSSION: A 59-year-old with problems outlined above. The patient has continued elevation in her white blood count with increase in fevers despite broad-spectrum antibiotics. Fevers may be tumor-related or the patient could have pneumonia; however, it would not be expected that she would have ongoing fevers with a pneumonia. Furthermore, she has not had a cough or significant sputum production. RECOMMENDATIONS: 1. Agree with expansion of antibiotics per Dr. Villalta to include fungal coverage. 2. Follow up chest x-ray tomorrow. 3. Consider removal of Port-A-Cath. 4. Repeat blood cultures now. 5. Continue oxygen for hypoxemic respiratory failure and anticipate need for oxygen at discharge. 6. Prognosis remains poor. cc: Raghavendra Welch MD
[2019-07-09] MEDS: DUONEB (A & A) INH SCH ×4 (03:40→22:40)
[2019-07-09] MEDS: MUCOMYST 20% INH SCH ×5 (04:33→22:40)
[2019-07-09] MEDS: LOVENOX SUBQ SCH (06:34)
--- NOTE | 2019-07-09 07:09 | Diag Imaging Result Doc PS360 ---
EXAM: CHEST-PORTABLE 07/09/2019 HISTORY: abnormal exam TECHNIQUE: AP portable at 0618 COMMENT: There is a catheter over the left lateral mediastinum passing over the hemidiaphragm laterally. There is a Port-A-Cath on the right. There is a small amount of pleural fluid including the in the minor fissure on the right. The lungs are slightly better expanded than on 07/06/2019. There is still some hazy opacity over the lung bases which may be due to pulmonary edema. There is fairly severe glenohumeral arthritis on the right. IMPRESSION: Pulmonary edema and small right pleural effusion. Electronically signed by Zhou Colon 07/09/2019 7:07 AM
[2019-07-09 09:00] LABS: BASO# 0.04 X1000 (0.0-0.2); BASO% 0.2 % (0.0-0.8); EOS# 0.04 X1000 (0.0-0.7); EOS% 0.2 % (0.0-10.0); HEMATOCRIT 32.8 % (37.0-47.0); HEMOGLOBIN 9.6 g/dL (12.0-16.0); IMM GRAN# 0.35 X1000 (0.0-0.04); IMM GRAN% 1.4 % (0.0-0.5); LYMPH# 0.96 X1000 (1.2-3.4); LYMPH% 3.8 % (20.5-51.1); MCH 28.6 PG (27-31); MCHC 29.3 g/dL (33-37); MCV 97.6 FL (81-99); MONO# 1.19 X1000 (0.11-0.59); MONO% 4.7 % (1.7-9.3); MPV 9.9 FL (7.4-10.4); NEUT# 22.73 X1000 (1.4-6.5); NEUT% 89.7 % (42.2-75.2); PLT 281 X1000 (130-400); RBC 3.36 XMIL (4.2-5.4); RDW 16.1 % (11.5-14.5); WBC 25.31 X1000 (4.8-10.8)
[2019-07-09 09:01] LABS: AGAP 11; BUN 9 mg/dL (8-22); CALCIUM 8.6 mg/dL (8.8-10.2); CHLORIDE 98 mmol/L (98-107); COSMO 267; CREATININE 0.4 mg/dL (0.5-0.9); ESTIMATED GFR > 60; GLUCOSE 129 mg/dL (70-104); POTASSIUM 3.8 mmol/L (3.5-5.1); SODIUM 133 mmol/L (136-145); TCO2 24 mmol/L (25-35)
[2019-07-09] MEDS: ZYVOX 600 MG/D5W 600 MG/300 ML IVPB IV SCH ×2 (09:06→20:11)
[2019-07-09] MEDS: KLOR-CON POWDER PACKET PO SCH (09:09)
[2019-07-09] MEDS: MS CONTIN PO SCH ×2 (09:09→20:13)
[2019-07-09] MEDS: PEPCID PO SCH (09:09)
[2019-07-09] MEDS: NORVASC PO SCH (09:09)
[2019-07-09] MEDS: LYRICA PO SCH (09:09)
[2019-07-09] MEDS: MIRALAX PO SCH (09:09)
[2019-07-09] MEDS: TOPROL XL PO SCH (09:09)
[2019-07-09] MEDS: COZAAR PO SCH (09:09)
[2019-07-09] MEDS: LASIX PO SCH (09:09)
[2019-07-09] MEDS: MAXIPIME 2 GM/NS 2 GM/100 ML IVPB IV SCH ×2 (09:20→20:17)
[2019-07-09 11:12] LABS: BANDS 2 % (0-1); LYMPHS 8 % (21-51); MICROCYTOSIS 2+; MONO 2 % (1-9); SEGS 88 % (42-75)
[2019-07-09] MEDS: MYCAMINE 100 MG in NS 100 ML IV SCH (22:00)
--- NOTE | 2019-07-10 00:42 | PROGRESS NOTE ---
DATE: 07/09/2019 SUBJECTIVE: The patient is breathing okay, but she is still on a face mask ventilation. Most of that is because of epistaxis related to nasal cannula, but she is still oxygen dependent. LABORATORY DATA: White count 25, hemoglobin and hematocrit 9 and 32. Basic was normal. PROBLEM LIST: 1. Pneumonia she is on antibiotics, vancomycin and cefepime. We will continue pulmonary toilet, Mucomyst. She is on cefepime, micafungin, and Zyvox in attempt to control fevers, and treat pneumonia; hopefully we will some improvement. 2. Metastatic breast cancer. She seems to be doing okay from that standpoint. However, her pathology and her metastases have increased. Really not sure what else they are going to be amenable to at this point. 3. Recurrent pleural effusion. She has a PleurX in place which will be drained intermittently. 4. Acute congestive heart failure with some decompensation. We will continue diuretics and monitor Is and Os. Hopefully, we can work towards discharge when she has stabilized, which has not happened yet but continue to monitor. cc: Marco Villalta MD [facility]
--- NOTE | 2019-07-10 02:39 | PULMONOLOGY PROGRESS NOTE ---
DATE: 07/09/2019 SUBJECTIVE: The patient has shortness of breath with any exertion. OBJECTIVE: Vital Signs: Maximum temperature in the last 24 hours is 101.8 degrees. Blood pressure 115/62, heart rate 110, respiratory rate 24, oxygen saturation 100% on Venturi mask. HEENT: Pupils are equal and reactive. Oropharynx appears clear. Neck: Supple. Chest: Reveals crackles in the lung bases. Cardiac: Increased rate, regular rhythm. Abdomen: Soft. Extremities: Without edema. LABORATORIES: Pleural fluid from the PleurX catheter continues to show malignant cells. Cultures remain negative to date. Chest x-ray reveals small amount of fluid on the right. Slight improvement in the lung expansion. White blood count 25.3, hemoglobin 9.6, platelet count 281,000. Sodium 133, potassium 3.3, BUN 9, creatinine 0.4. IMPRESSION: 1. A 59-year-old with widely metastatic breast cancer. She continues to demonstrate malignant cells in the pleural fluid. 2. Hypoxemic respiratory failure. 3. Bilateral pleural effusions. Current chest x-ray suggests these are well controlled. 4. Leukocytosis with ongoing fevers. PLAN: 1. Continue current antibiotic regimen. There is no new information suggesting a reason to alter current treatment. 2. Consider Port-A-Cath removal as discussed yesterday. 3. Continue oxygen for hypoxemic respiratory failure. 4. Prognosis is poor. cc: Raghavendra Welch MD
[2019-07-10] MEDS: DUONEB (A & A) INH SCH ×4 (03:32→21:40)
[2019-07-10] MEDS: LOVENOX SUBQ SCH (06:29)
[2019-07-10 08:02] LABS: AGAP 12; BUN 5 mg/dL (8-22); CALCIUM 8.6 mg/dL (8.8-10.2); CHLORIDE 99 mmol/L (98-107); COSMO 271; CREATININE 0.3 mg/dL (0.5-0.9); ESTIMATED GFR > 60; GLUCOSE 128 mg/dL (70-104); POTASSIUM 3.8 mmol/L (3.5-5.1); SODIUM 136 mmol/L (136-145); TCO2 25 mmol/L (25-35)
[2019-07-10 08:52] LABS: BASO# 0.04 X1000 (0.0-0.2); BASO% 0.2 % (0.0-0.8); EOS# 0.03 X1000 (0.0-0.7); EOS% 0.1 % (0.0-10.0); HEMOGLOBIN 9.4 g/dL (12.0-16.0); IMM GRAN# 0.28 X1000 (0.0-0.04); IMM GRAN% 1.2 % (0.0-0.5); LYMPH# 0.62 X1000 (1.2-3.4); LYMPH% 2.6 % (20.5-51.1); MCH 29.4 PG (27-31); MCHC 30.3 g/dL (33-37); MCV 96.9 FL (81-99); MONO# 1.01 X1000 (0.11-0.59); MONO% 4.2 % (1.7-9.3); NEUT# 21.93 X1000 (1.4-6.5); NEUT% 91.7 % (42.2-75.2); PLT 263 X1000 (130-400); RDW 15.7 % (11.5-14.5); WBC 23.91 X1000 (4.8-10.8)
[2019-07-10] MEDS: MAXIPIME 2 GM/NS 2 GM/100 ML IVPB IV SCH ×2 (09:05→20:59)
[2019-07-10] MEDS: COZAAR PO SCH (09:05)
[2019-07-10] MEDS: NORVASC PO SCH (09:05)
[2019-07-10] MEDS: ZYVOX 600 MG/D5W 600 MG/300 ML IVPB IV SCH ×2 (09:05→20:59)
[2019-07-10] MEDS: TOPROL XL PO SCH (09:05)
[2019-07-10] MEDS: MIRALAX PO SCH (09:06)
[2019-07-10] MEDS: LASIX PO SCH (09:06)
[2019-07-10] MEDS: KLOR-CON POWDER PACKET PO SCH (09:06)
[2019-07-10] MEDS: MS CONTIN PO SCH ×2 (09:06→20:58)
[2019-07-10] MEDS: LYRICA PO SCH (09:06)
[2019-07-10] MEDS: PEPCID PO SCH (09:06)
[2019-07-10] MEDS: MUCOMYST 20% INH SCH ×2 (09:43→21:40)
--- NOTE | 2019-07-10 16:57 | PROGRESS NOTE ---
DATE: 07/10/2019 INTERVAL HISTORY: She continues to spike fever. She had a temperature of 100.4 degrees yesterday. She is continuously tachycardic. She is needing a Venturi mask. She states she is intolerant to nasal cannula because of irritation in the nose and she also develops epistaxis. Her family is at bedside. Ms. Soria denies any chest pain, shortness of breath at rest. She has occasional cough. She denies any nausea, vomiting. We discussed about her persistent fever, possible etiologies, possible infection of right-sided chest port, and I answered all of her questions. VITALS: Temperature 97.4 degrees, pulse 104, respiratory rate 20, blood pressure 103/60. She is saturating 100% on Venturi mask. PHYSICAL EXAMINATION: Not in acute distress. Oral cavity is moist.Lungs: Air entry bilaterally equal. No wheeze or rhonchi. She has inspiratory crackles bilateral infrascapular region. Cardiovascular: S1, S2 normal. Tachycardic. No murmur or gallop. Right-sided chest port site does not have any pus collection or undue tenderness. Abdomen: Soft, nontender. No jugular venous distention. Extremities: No lower extremity edema. She is alert and oriented x3. She had a left-sided PleurX catheter, which is currently dressed. LABS/IMAGING: Suggestive of persistent leukocytosis of 23,000, hemoglobin 9.4, platelet 263,000. She does have BUN of 5, creatinine 0.3. No positive microbiological data. No new imaging. ASSESSMENT AND PLAN: 1. Sepsis and acute hypoxic respiratory failure due to bilateral multifocal pneumonia. Continue intravenous linezolid, intravenous micafungin and intravenous cefepime. Considering she has been on antibiotics and despite that continues to have fever spike I will consult General Surgery Team for possible port removal. I will continue oxygenation to maintain saturation more than 92%. So far the culture data have been unremarkable. I will continue her on current dose of Lasix for acute pulmonary edema and small bilateral pleural effusions. She also has left-sided PleurX catheter for her malignant pleural effusion. Continue inhaled bronchodilators and acetylcysteine. 2. Metastatic breast cancer with malignant pleural effusion, mediastinal lymphadenopathy and brain metastasis. The patient is status post radiation, which was discontinued due to severe esophagitis, as well as 1 cycle of Taxotere on June 30. Next dose would be on July 13. Currently, chemotherapy on hold. The patient may need chest port removal and I informed Oncology Team about it. 3. Acute on chronic systolic congestive heart failure with ejection fraction of 50% in 2018. I will continue her on amlodipine for essential hypertension and oral Lasix. She is also on metoprolol succinate extended release, which I will continue. 4. Chronic pain. Continue home morphine and as-needed oxycodone. She is also on MiraLAX to avoid constipation, as well as Lyrica. She did have a bowel movement today. I will continue to monitor. 5. Disposition. Continue to monitor patient inside the hospital as she continues to have fevers. Plan of care discussed with the patient and her family. All of their questions have been satisfactorily answered. cc: Gunner Cooley MD MTDD
[2019-07-10] MEDS ORDERED: AYR NASAL SPRAY NAS PRN (20:32)
--- NOTE | 2019-07-10 22:27 | GENERAL SURGERY CONSULTATION ---
DATE: 07/10/2019 HISTORY OF PRESENT ILLNESS: Ms. Soria is a pleasant but unfortunate 59-year-old female with metastatic breast cancer. She is undergoing chemotherapy by Dr. Dietz. She has been also receiving Avastin, the most recent being about a week ago. She was admitted on July 03 with shortness of breath. She has recently had a PleurX catheter placed on the left to drain a chronic pleural effusion that is malignant. She now has some fever of uncertain etiology. Her blood cultures have been negative. She has had a port in for 4 years and has no tenderness or problem with her port. Other surgery includes a bilateral mastectomy, hysterectomy, bilateral implants. MEDICATIONS: Listed. ALLERGIES: Adhesive tape. FAMILY HISTORY: Noncontributory. SOCIAL HISTORY: Denies tobacco. She is and has an attentive . She uses no alcohol. REVIEW OF SYSTEMS: As noted above. PHYSICAL EXAMINATION: She is afebrile, 97.4 degrees. Heart rate 110, blood pressure 125/70. Her port is in the right upper anterior chest and is nontender. She has bilateral breath sounds. Heart is regular rate and rhythm. Abdomen is soft. She is awake and alert. LABORATORY DATA: Her white count is 23,900, hemoglobin 9.4, hematocrit 31. Chemistry is normal. DIAGNOSTIC DATA: Chest x-ray reveals pulmonary edema and small right pleural effusion. Pulmonary arteriogram revealed multiple small scattered nodules and lytic areas in the spine, consistent with metastatic disease. ASSESSMENT AND PLAN: Fever of unknown etiology. Unfortunately she has no intravenous access. The port has served her well for 4 years and is her only dependable intravenous access. Previous attempt in 2016 did not allow access to her left side, through her left internal jugular vein, and she has no cephalic vein to access. I think losing her port will be significant, as she has no intravenous access otherwise, and so I do not think we should consider this unless it becomes absolutely mandatory. cc: Yayo Rodriguez MD
--- NOTE | 2019-07-10 23:36 | PROVIDER PROGRESS NOTE ---
Progress Note Dr. Fraser Progress Note/Pulmonary and or critical care Subjective: The patient is lying in bed with no acute distress noted. She is on VM 50%. She apparently cant tolerate NC because of epistaxis. She had one episode of fever up to 100.1 last night. She states she is fine at this time. She still has SOB with activities and occasional cough. Patients close friend is at the bedside. Objective: Vital Signs: T 97.4 (fever in last 24 hours), BP 103/60, [place] 104, RR 20, and SaO2 100% on VM 50%. Physical Examination: General: In no acute distress. HEENT: Normocephalic. Trachea midline. PERRL. Chest: Even and unlabored. No increased work of breathing. Symmetrical excursion. Inspiratory crackles bibasilarly with good air entry bilaterally. Left-sided PleurX catheter with dressing on. CVS: Regular rate and rhythm with S1 and S2 appreciated. Abdomen: Normoactive bowel sounds present. Soft. Nontender. Nondistended. Extremities: No pedal edema. No cyanosis. No clubbing. Neuro: A/O x3. Speech fluent. Follow commands. Labs and Radiology: Laboratory Results 07/10/19 07/10/19 07:20 07:20 WBC 23.91 H RBC 3.20 L Hgb 9.4 L Hct 31.0 L MCV 96.9 MCH 29.4 MCHC 30.3 L RDW Std Deviation 15.7 H Plt Count 263 MPV 10.0 Immature Gran % (Auto) 1.2 H Neut % (Auto) 91.7 H Lymph % (Auto) 2.6 L [place] % (Auto) 4.2 Eos % (Auto) 0.1 Baso % (Auto) 0.2 Immature Gran # (Auto) 0.28 H Neut # (Auto) 21.93 H Lymph # (Auto) 0.62 L [place] # (Auto) 1.01 H Eos # (Auto) 0.03 Baso # (Auto) 0.04 Sodium 136 Potassium 3.8 Chloride 99 Carbon Dioxide 25 Anion Gap 12 BUN 5 L Creatinine 0.3 L Estimated GFR/1.73 m2 > 60 BUN/Creatinine Ratio 17 Glucose 128 H Calculated Osmolality 271 Calcium 8.6 L Assessment: Hypoxemic respiratory failure secondary to bilateral multifocal pneumonia and malignant pleural effusion. Bilateral multifocal pneumonia. Malignant pleural effusion with mediastinal lymphadenopathy secondary to metastatic breast cancer. s/p left-sided PleurX Catheter placement. Acute on chronic congestive heart failure, systolic. Leukocytosis with ongoing fevers. Plan: Continue antibiotics including Linezolid and Cefepime. Continue Micafungin. Port-A-Cath removal planning per Dr. Cooley and General Surgery consulted. Continue diuretics as tolerated. Continue bronchodilators and mucomyst. GI prophylaxis with Pepcid and DVT prophylaxis with Lovenox.
[2019-07-10] MEDS: MYCAMINE 100 MG in NS 100 ML IV SCH (23:53)
[2019-07-11] MEDS: DUONEB (A & A) INH SCH ×4 (03:45→22:22)
[2019-07-11] MEDS: LOVENOX SUBQ SCH (06:12)
[2019-07-11] MEDS: MUCOMYST 20% INH SCH ×2 (07:54→22:23)
[2019-07-11] MEDS: LASIX PO SCH (08:57)
[2019-07-11] MEDS: PEPCID PO SCH (08:57)
[2019-07-11] MEDS: LYRICA PO SCH (08:57)
[2019-07-11] MEDS: NORVASC PO SCH (08:57)
[2019-07-11] MEDS: KLOR-CON POWDER PACKET PO SCH (08:58)
[2019-07-11] MEDS: MS CONTIN PO SCH ×2 (08:58→20:51)
[2019-07-11] MEDS: MAXIPIME 2 GM/NS 2 GM/100 ML IVPB IV SCH ×2 (08:59→20:51)
[2019-07-11] MEDS: TOPROL XL PO SCH (09:00)
[2019-07-11] MEDS: MIRALAX PO SCH (09:04)
[2019-07-11] MEDS: ZYVOX 600 MG/D5W 600 MG/300 ML IVPB IV SCH ×2 (09:06→20:51)
--- NOTE | 2019-07-11 13:48 | PROGRESS NOTE ---
DATE: 07/11/2019 INTERVAL HISTORY: No acute events overnight. Ms. Soria is sitting in the chair at the time of my evaluation. General Surgical team had recommended continued port considering poor IV access in the past. At rest, Ms. Soria denies any chest pain, shortness of breath, though she is on Venturi mask. She is denying increasing cough. We did discuss about treating pneumonia. I answered all of her questions. PHYSICAL EXAMINATION: Vital signs: Temperature of 98.2 degrees, pulse 70, respiratory rate 20, blood pressure 112/77. She is saturating 96% on Venturi mask. When I took her Venturi mask off altogether, her oxygen saturation dropped to 92%. HEENT: On physical examination, she has some epistaxis bilateral nostrils. Lungs: Air entry bilaterally equal. No wheeze or rhonchi. She has infrascapular crackles bilateral lung bella. Cardiovascular: S1, S2 normal. Tachycardic. No murmur, rub, or gallop. Abdomen: Soft, nontender. Extremities: She has mild bilateral lower extremity edema. She has left-sided chest PleurX catheter as well as a port on the right side of the chest. LABORATORY: No CBC or BMP today. ASSESSMENT AND PLAN: 1. Sepsis and acute hypoxic respiratory failure due to bilateral multifocal pneumonia as well as acute pulmonary edema and bilateral pleural effusions. Ms. Soria continued to have fever spike for which her antibiotic coverage has been broadened to intravenous linezolid, cefepime, and Micafungin, which I will continue. Surgical team has suggested not to get the port removal considering previous issues with intravenous access. Considering she has not had any fever in the last 48 hours, I will keep the port. I will also increase the dose of Lasix considering her acute pulmonary edema and follow up with chest x-ray tomorrow. She has left- sided PleurX catheter for malignant pleural effusion. Continue inhaled bronchodilators and acetylcysteine. 2. Metastatic breast cancer with malignant pleural effusion, mediastinal lymphadenopathy with brain metastasis. The patient is status post radiation, which was discontinued due to severe esophagitis, as well as 1 cycle of Taxotere on 06/30. Next dose would be on 07/13. Currently chemotherapy on hold. Oncology team on board. 3. [id number] systolic congestive heart failure with ejection fraction of 55%, likely mild with preserved ejection fraction. Give one time IV lasix. Continue amlodipine for essential hypertension and metoprolol extended release. 4. Chronic pain. Continue home morphine as needed, oxycodone. Continue MiraLAX for constipation and Lyrica for chronic pain. DISPOSITION: Continue to monitor patient inside the hospital. She has had epistaxis on nasal cannula, so she has been on a Venturi mask. We will titrate her oxygen down as tolerated. I will continue to monitor inside the hospital. Plan of care discussed with Ms Soria. All of her questions have been satisfactorily answered. cc: Gunner Cooley MD MTDD
--- NOTE | 2019-07-11 14:56 | GENERAL SURGERY PROGRESS NOTE ---
DATE: 07/11/2019 Ms. Soria has had no significant fever over the past 24 hours. I do not plan to take her port out as of yet until there is more convincing evidence that this is the source of her fever. Her IV access will become a tremendous problem if this is removed. cc: Yayo Rodriguez MD
[2019-07-11] MEDS ORDERED: LASIX IV ONE (15:00)
--- NOTE | 2019-07-11 18:08 | PROVIDER PROGRESS NOTE ---
Progress Note Dr. Fraser Progress Note/Pulmonary and or critical care Subjective: The patient is sitting in the bedside chair. She appears more alert and energetic than yesterday. She stays on VM 50%. She reports nasal bleeding with nasal cannula use. She has no fever in last 24 hours. Patients is at the bedside. Objective: Vital Signs: T 98.2 (No fever in last 24 hours), BP 112/77, [place] 103, RR 15, and SaO2 96% on VM 50%. Physical Examination: General: In no acute distress. Very pleasant and cooperative. HEENT: Normocephalic. Trachea midline. PERRL. Chest: Even and unlabored. No increased work of breathing. Symmetrical excursion. Inspiratory crackles bibasilarly with good air entry bilaterally. Left-sided PleurX catheter with dressing on. CVS: Regular rate and rhythm with S1 and S2 appreciated. Abdomen: Normoactive bowel sounds present. Soft. Nontender. Nondistended. Extremities: No pedal edema. No cyanosis. No clubbing. Neuro: A/O x3. Speech fluent. Follow commands. Labs and Radiology: Assessment: Hypoxemic respiratory failure secondary to bilateral multifocal pneumonia and malignant pleural effusion. Stable. Bilateral multifocal pneumonia. Malignant pleural effusion with mediastinal lymphadenopathy secondary to metastatic breast cancer. s/p left-sided PleurX Catheter placement. Acute on chronic congestive heart failure, systolic. Leukocytosis with ongoing fevers. Fever resolved in last 24 hours. No plan to pull the port out at this time per General Surgery. Plan: Continue antibiotics including Linezolid and Cefepime. Continue Micafungin. Continue diuretics as tolerated. Continue bronchodilators and mucomyst. Weaning oxygen as tolerated. Recommend to use simple facial mask to deliver a low oxygen flow rate, but not a nasal cannula. GI prophylaxis with Pepcid and DVT prophylaxis with Lovenox.
[2019-07-11] MEDS: MYCAMINE 100 MG in NS 100 ML IV SCH (23:39)
[2019-07-12] MEDS: DUONEB (A & A) INH SCH ×4 (03:51→22:27)
[2019-07-12] MEDS: LOVENOX SUBQ SCH (06:19)
[2019-07-12] MEDS: ZYVOX 600 MG/D5W 600 MG/300 ML IVPB IV SCH ×2 (07:49→20:45)
[2019-07-12] MEDS: MUCOMYST 20% INH SCH ×2 (07:59→22:28)
[2019-07-12 08:15] LABS: BASO# 0.02 X1000 (0.0-0.2); BASO% 0.1 % (0.0-0.8); EOS# 0.05 X1000 (0.0-0.7); EOS% 0.2 % (0.0-10.0); HEMATOCRIT 31.3 % (37.0-47.0); HEMOGLOBIN 9.4 g/dL (12.0-16.0); IMM GRAN# 0.17 X1000 (0.0-0.04); IMM GRAN% 0.8 % (0.0-0.5); LYMPH# 0.52 X1000 (1.2-3.4); LYMPH% 2.6 % (20.5-51.1); MCH 28.7 PG (27-31); MCV 95.7 FL (81-99); MONO# 0.71 X1000 (0.11-0.59); MONO% 3.5 % (1.7-9.3); MPV 9.8 FL (7.4-10.4); NEUT# 18.87 X1000 (1.4-6.5); NEUT% 92.8 % (42.2-75.2); PLT 295 X1000 (130-400); RBC 3.27 XMIL (4.2-5.4); RDW 15.8 % (11.5-14.5); WBC 20.34 X1000 (4.8-10.8)
[2019-07-12 08:31] LABS: AGAP 11; BUN 3 mg/dL (8-22); CHLORIDE 98 mmol/L (98-107); COSMO 272; CREATININE 0.3 mg/dL (0.5-0.9); ESTIMATED GFR > 60; GLUCOSE 97 mg/dL (70-104); POTASSIUM 3.6 mmol/L (3.5-5.1); SODIUM 138 mmol/L (136-145); TCO2 29 mmol/L (25-35)
[2019-07-12 09:02] LABS: ANISOCYTOSIS 1+; HYPOCHROM 1+; LYMPHS 3 % (21-51); MONO 4 % (1-9); POIKILOCYTOSIS 1+; SEGS 93 % (42-75)
--- NOTE | 2019-07-12 09:20 | Diag Imaging Result Doc PS360 ---
EXAM: CHEST-2 VIEWS 07/12/2019 HISTORY: hypoxia TECHNIQUE: Two views the chest COMMENT: There are bilateral pleural effusions. This has worsened slightly since 07/09/2019. There is slightly worsened interstitial opacity in the lung bases. IMPRESSION: Worsening pulmonary edema and pleural effusions. Electronically signed by Zhou Colon 07/12/2019 9:17 AM
[2019-07-12] MEDS: PEPCID PO SCH (09:54)
[2019-07-12] MEDS: LASIX PO SCH (09:54)
[2019-07-12] MEDS: MAXIPIME 2 GM/NS 2 GM/100 ML IVPB IV SCH ×2 (09:54→20:46)
[2019-07-12] MEDS: LYRICA PO SCH (09:54)
[2019-07-12] MEDS: MIRALAX PO SCH (09:54)
[2019-07-12] MEDS: NORVASC PO SCH (09:54)
[2019-07-12] MEDS: MS CONTIN PO SCH ×2 (09:54→20:45)
[2019-07-12] MEDS: TOPROL XL PO SCH (09:54)
[2019-07-12] MEDS: KLOR-CON POWDER PACKET PO SCH (10:02)
--- NOTE | 2019-07-12 10:50 | GENERAL SURGERY PROGRESS NOTE ---
DATE: 07/12/2019 Ms. Soria continues to be without fever so the plan remains to leave her port in place. cc: Yayo Rodriguez MD
--- NOTE | 2019-07-12 13:34 | PROGRESS NOTE ---
DATE: 07/12/2019 SUBJECTIVE: No acute events overnight. She is sitting in a chair. The is at the bedside. She seems to be stable. She is on a Venturi mask though. OBJECTIVE: Vital Signs: Temperature 97.8 degrees, pulse 97, respiratory rate 16, blood pressure 118/75, oxygen saturation 98 on a Venturi mask. HEENT: Head normocephalic. No trauma. PERRLA. Neck: Supple. No JVD. No masses. Central trachea. Chest: Clear to auscultation. She does have crackles at the bases. Cardiovascular: Regular rate and rhythm. Slightly tachycardic. Abdomen: Soft, nontender, nondistended. No hepatosplenomegaly. She has a left-sided chest PleurX catheter. LABORATORY DATA: WBC 20.3, hemoglobin 9.4, hematocrit 31.3, platelets 295,000. Sodium 138, potassium 3.6, chloride 98, bicarbonate 29, BUN 3, creatinine 0.3, glucose 97, calcium ASSESSMENT AND PLAN: 1. Sepsis and acute hypoxemic respiratory failure due to bilateral multifocal pneumonia, pulmonary edema, and pleural effusion. She has a PleurX catheter on the left side. Surgery on board. I will continue with her antibiotics right now, and micafungin as well. No fever for the past 72 hours. We are going to keep the Port-A-Cath. I will give her an extra dose of Lasix today in the afternoon. 2. Metastatic breast cancer with malignant pleural effusion, mediastinal lymphadenopathy with brain metastasis. She is on chemotherapy and radiotherapy, but apparently radiotherapy was discontinued due to esophagitis. 3. Acute on chronic systolic congestive heart failure exacerbation, ejection fraction 55%. Continue with Lasix today, and I will give her an extra dose of Lasix. 4. Chronic pain. Continue with pain medication. 5. Disposition. Will continue to monitor this patient closely. She is still on a Ventimask. I will diurese this patient, and also we will remove fluid from her lungs through the PleurX. Will monitor. cc: Rusty Kapoor MD
[2019-07-12] MEDS ORDERED: LASIX IV ONE (16:00)
--- NOTE | 2019-07-12 19:39 | PROVIDER PROGRESS NOTE ---
Progress Note Dr. Fraser Progress Note/Pulmonary and or critical care Subjective: The patient is sleeping in bed. She has been switched from VM 50% to 40% since yesterday and tolerates well. She has been fever free more than 2 days. Patients is at the bedside. Objective: Vital Signs: T 97.8 (No fever in last 24 hours), BP 118/75, [place] 101, RR 17, and SaO2 98% on VM 40%. Physical Examination: General: In no acute distress. Very pleasant and cooperative. HEENT: Normocephalic. Trachea midline. PERRL. Chest: Even and unlabored. No increased work of breathing. Symmetrical excursion. Inspiratory crackles bibasilarly with good air entry bilaterally. Left-sided PleurX catheter with dressing on. CVS: Regular rate and rhythm with S1 and S2 appreciated. Abdomen: Normoactive bowel sounds present. Soft. Nontender. Nondistended. Extremities: No pedal edema. No cyanosis. No clubbing. Neuro: A/O x3. Speech fluent. Follow commands. Labs and Radiology: Laboratory Results 07/12/19 07/12/19 07:49 07:49 WBC 20.34 H RBC 3.27 L Hgb 9.4 L Hct 31.3 L MCV 95.7 MCH 28.7 MCHC 30.0 L RDW Std Deviation 15.8 H Plt Count 295 MPV 9.8 Immature Gran % (Auto) 0.8 H Neut % (Auto) 92.8 H Lymph % (Auto) 2.6 L [place] % (Auto) 3.5 Eos % (Auto) 0.2 Baso % (Auto) 0.1 Immature Gran # (Auto) 0.17 H Neut # (Auto) 18.87 H Lymph # (Auto) 0.52 L [place] # (Auto) 0.71 H Eos # (Auto) 0.05 Baso # (Auto) 0.02 Segmented Neutrophils 93 H Lymphocytes 3 L Monocytes 4 Hypochromia 1+ Poikilocytosis 1+ Anisocytosis 1+ Macrocytosis 1+ Sodium 138 Potassium 3.6 Chloride 98 Carbon Dioxide 29 Anion Gap 11 BUN 3 L Creatinine 0.3 L Estimated GFR/1.73 m2 > 60 BUN/Creatinine Ratio 10 Glucose 97 Calculated Osmolality 272 Calcium 9.0 Assessment: Hypoxemic respiratory failure secondary to bilateral multifocal pneumonia and malignant pleural effusion. Stable. CXR today shows worsening pulmonary edema and pleural effusions. Bilateral multifocal pneumonia. Malignant pleural effusion with mediastinal lymphadenopathy secondary to metastatic breast cancer. s/p left-sided PleurX Catheter placement. Acute on chronic congestive heart failure, systolic. Leukocytosis with ongoing fevers. Fever resolved for 2 days. No plan to pull the port out at this time per General Surgery. Plan: Continue antibiotics including Linezolid and Cefepime. Continue Micafungin. Continue diuretics as tolerated. Extra 40 mg of Lasix given per Dr. Delcid. Continue bronchodilators and mucomyst. Weaning oxygen with Venturi Mask as tolerated. GI prophylaxis with Pepcid and DVT prophylaxis with Lovenox.
[2019-07-12] MEDS: MYCAMINE 100 MG in NS 100 ML IV SCH (23:22)
[2019-07-13] MEDS: DUONEB (A & A) INH SCH ×4 (03:34→22:22)
[2019-07-13] MEDS: LOVENOX SUBQ SCH (05:52)
[2019-07-13 07:37] LABS: BASO# 0.02 X1000 (0.0-0.2); BASO% 0.1 % (0.0-0.8); EOS# 0.05 X1000 (0.0-0.7); EOS% 0.3 % (0.0-10.0); HEMATOCRIT 31.4 % (37.0-47.0); HEMOGLOBIN 9.4 g/dL (12.0-16.0); IMM GRAN# 0.08 X1000 (0.0-0.04); IMM GRAN% 0.4 % (0.0-0.5); LYMPH# 0.44 X1000 (1.2-3.4); LYMPH% 2.4 % (20.5-51.1); MCH 28.7 PG (27-31); MCHC 29.9 g/dL (33-37); MONO# 0.61 X1000 (0.11-0.59); MONO% 3.3 % (1.7-9.3); MPV 9.7 FL (7.4-10.4); NEUT# 17.24 X1000 (1.4-6.5); NEUT% 93.5 % (42.2-75.2); PLT 318 X1000 (130-400); RBC 3.27 XMIL (4.2-5.4); RDW 15.9 % (11.5-14.5); WBC 18.44 X1000 (4.8-10.8)
[2019-07-13 07:53] LABS: AGAP 12; BUN 5 mg/dL (8-22); CALCIUM 8.9 mg/dL (8.8-10.2); CHLORIDE 99 mmol/L (98-107); COSMO 272; CREATININE 0.3 mg/dL (0.5-0.9); ESTIMATED GFR > 60; GLUCOSE 90 mg/dL (70-104); POTASSIUM 3.5 mmol/L (3.5-5.1); SODIUM 138 mmol/L (136-145); TCO2 27 mmol/L (25-35)
[2019-07-13 07:56] LABS: BANDS 4 % (0-1); HYPOCHROM 1+; LYMPHS 2 % (21-51); MONO 2 % (1-9); SEGS 92 % (42-75)
[2019-07-13] MEDS: ZYVOX 600 MG/D5W 600 MG/300 ML IVPB IV SCH ×2 (08:17→20:42)
[2019-07-13] MEDS: KLOR-CON POWDER PACKET PO SCH (08:20)
[2019-07-13] MEDS: NORVASC PO SCH (08:21)
[2019-07-13] MEDS: PEPCID PO SCH (08:21)
[2019-07-13] MEDS: MAXIPIME 2 GM/NS 2 GM/100 ML IVPB IV SCH ×2 (08:21→20:42)
[2019-07-13] MEDS: LYRICA PO SCH (08:21)
[2019-07-13] MEDS: LASIX PO SCH (08:21)
[2019-07-13] MEDS: TOPROL XL PO SCH (08:21)
[2019-07-13] MEDS: MS CONTIN PO SCH ×2 (08:21→20:35)
[2019-07-13] MEDS: MIRALAX PO SCH (08:23)
[2019-07-13] MEDS: MUCOMYST 20% INH SCH ×2 (11:30→19:59)
--- NOTE | 2019-07-13 13:29 | PROGRESS NOTE ---
DATE: 07/13/2019 SUBJECTIVE: No acute events overnight. This patient is still using a Ventimask, white blood cell count is slowly going down. OBJECTIVE: Vital Signs: Temperature 97.6 degrees, pulse 90, respiratory rate 16, blood pressure 99/68, and oxygen saturation 100% on a Venturi mask. HEENT: Head normocephalic. No trauma. PERRLA. Neck: Supple. No JVD. No masses. Central trachea. Chest: Clear to auscultation. Some crackles at the bases. Cardiovascular: RRR. Abdomen: Soft, nontender, and nondistended. No hepatosplenomegaly. She has a left-sided PleurX catheter. Extremities: No edema. No clubbing. No cyanosis. Neurological: The patient is awake and alert. She is oriented. No focal deficits. LABORATORY: WBC 18.4, hemoglobin 9.4, hematocrit 31.4, and platelets 218,000. Sodium 138, potassium 3.5, chloride 99, bicarbonate 27, BUN 5, creatinine 0.3, glucose 90, and calcium 8.9. ASSESSMENT AND PLAN: 1. Sepsis and acute hypoxemic respiratory failure due to bilateral multifocal pneumonia, pulmonary edema and pleural effusion, metastatic disease. She has a PleurX catheter on the left side. Surgery on board as well as Hematology/Oncology. I will continue with antibiotics for now and micafungin as well. WBC trending down. Blood culture negative. 2. Metastatic breast cancer with malignant pleural effusion, mediastinal lymphadenopathy with brain metastasis. It looks like she has been on chemotherapy and radiotherapy, but apparently radiotherapy has been discontinued due to esophagitis. 3. Acute on chronic systolic CHF exacerbation with ejection fraction of 55%. We will just continue with Lasix. 4. Chronic pain. Continue with pain medication. 5. Disposition. We will continue to monitor this patient closely. She is still on a Ventimask. Pulmonary Department on board as well as Hematology/Oncology Department. cc: Rusty Kapoor MD
[2019-07-13] MEDS ORDERED: LASIX IV ONE (13:35)
[2019-07-13 14:20] LABS: ALLEN TEST YES; BE 4.3 mmoll (-3.0-3.0); BLOOD TYPE ARTERIAL; HCO3-(ACT) 28.3 mmoll (20.0-26.0); METHB 0.8 % (0.0-1.5); O2(CT) 14.7 mL/dL (15.0-23.0); O2HB 96.3 % (95.0-99.0); PCO2(98.6) 44 mmHg (35-45); PO2(98.6) 88 mmHg (60-100); SAMPLE BLOOD; THB 10.8 g/dL (11.5-17.4); pH(98.6) 7.43 (7.35-7.45)
[2019-07-13 14:21] LABS: MODALITY CANNULA
--- NOTE | 2019-07-13 17:57 | PROVIDER PROGRESS NOTE ---
Progress Note Dr. Fraser Progress Note/Pulmonary and or critical care Subjective: The patient is sitting in the bedside chair. She is on VM 40%. We are switching her to VM 35% at this time. Patient has no complaint at this time. Patients is at the bedside. Objective: Vital Signs: T 97.7 (No fever in last 24 hours), BP 113/68, [place] 97, RR 16, and SaO2 99% on VM 40%. Physical Examination: General: In no acute distress. Very pleasant and cooperative. HEENT: Normocephalic. Trachea midline. PERRL. Chest: Even and unlabored. No increased work of breathing. Symmetrical excursion. Decreased air entry in right base with inspiratory crackles. Good air entry and clear to auscultation in the left side. Left-sided PleurX catheter with dressing on. CVS: Regular rate and rhythm with S1 and S2 appreciated. Abdomen: Normoactive bowel sounds present. Soft. Nontender. Nondistended. Extremities: No pedal edema. No cyanosis. No clubbing. Neuro: A/O x3. Speech fluent. Follow commands. Labs and Radiology: Laboratory Results 07/13/19 07/13/19 07/13/19 07:13 07:13 07:13 WBC 18.44 H RBC 3.27 L Hgb 9.4 L Hct 31.4 L MCV 96.0 MCH 28.7 MCHC 29.9 L RDW Std Deviation 15.9 H Plt Count 318 MPV 9.7 Immature Gran % (Auto) 0.4 Neut % (Auto) 93.5 H Lymph % (Auto) 2.4 L [place] % (Auto) 3.3 Eos % (Auto) 0.3 Baso % (Auto) 0.1 Immature Gran # (Auto) 0.08 H Neut # (Auto) 17.24 H Lymph # (Auto) 0.44 L [place] # (Auto) 0.61 H Eos # (Auto) 0.05 Baso # (Auto) 0.02 Segmented Neutrophils 92 H Band Neutrophils 4 H Lymphocytes 2 L Monocytes 2 Hypochromia 1+ Specimen Type Sample Site pH pCO2 pO2 HCO3 Base Excess Oxyhemoglobin ABG O2 Sat (Calculated) ABG O2 Saturation ABG Carboxyhemoglobin ABG Methemoglobin Rafy Test A-a O2 Difference Total Hemoglobin Lactate Blood Gas Modality FiO2 % Sodium 138 Potassium 3.5 Chloride 99 Carbon Dioxide 27 Anion Gap 12 BUN 5 L D Creatinine 0.3 L Estimated GFR/1.73 m2 > 60 BUN/Creatinine Ratio 17 Glucose 90 Calculated Osmolality 272 Calcium 8.9 Kaa-[id number]-Ymlmzstmfny Pept 148 07/13/19 14:15 WBC RBC Hgb Hct MCV MCH MCHC RDW Std Deviation Plt Count MPV Immature Gran % (Auto) Neut % (Auto) Lymph % (Auto) [place] % (Auto) Eos % (Auto) Baso % (Auto) Immature Gran # (Auto) Neut # (Auto) Lymph # (Auto) [place] # (Auto) Eos # (Auto) Baso # (Auto) Segmented Neutrophils Band Neutrophils Lymphocytes Monocytes Hypochromia Specimen Type ARTERIAL Sample Site L RADIAL pH 7.43 pCO2 44 pO2 88 HCO3 28.3 H Base Excess 4.3 H Oxyhemoglobin 96.3 ABG O2 Sat (Calculated) 14.7 L ABG O2 Saturation 99.0 ABG Carboxyhemoglobin 1.90 ABG Methemoglobin 0.8 Rafy Test YES A-a O2 Difference 85.0 Total Hemoglobin 10.8 L Lactate 1.00 Blood Gas Modality CANNULA FiO2 % 32.0 Sodium Potassium Chloride Carbon Dioxide Anion Gap BUN Creatinine Estimated GFR/1.73 m2 BUN/Creatinine Ratio Glucose Calculated Osmolality Calcium Lln-I-Gavcafduwzy Pept Assessment: Hypoxemic respiratory failure secondary to bilateral multifocal pneumonia and malignant pleural effusion. Stable. Bilateral multifocal pneumonia. Malignant pleural effusion with mediastinal lymphadenopathy secondary to metastatic breast cancer. s/p left-sided PleurX Catheter placement. Acute on chronic congestive heart failure, systolic. Leukocytosis with ongoing fevers. Fever resolved for 3 days. Leukocytosis improving. No plan to pull the port out at this time per General Surgery. Plan: Continue antibiotics including Linezolid (Day 6) and Cefepime (Day 10). Continue Micafungin (Day 6). Continue diuretics 40mg po daily. We are adding extra 60 mg of Lasix IV at this time. Continue bronchodilators and Mucomyst. Weaning oxygen with Venturi Mask as tolerated. Currently on VM 35%. We will follow ABG and proBNP tomorrow. GI prophylaxis with Pepcid and DVT prophylaxis with Lovenox. We discuss patients condition and care plan with patient and her . All questions have been answered.
[2019-07-13] MEDS ORDERED: BLISTEX MEDICATED BERRY LIP BALM TOP PRN (20:48)
[2019-07-13] MEDS: MYCAMINE 100 MG in NS 100 ML IV SCH (23:25)
[2019-07-14] MEDS: DUONEB (A & A) INH SCH ×4 (04:02→23:03)
[2019-07-14] MEDS: LOVENOX SUBQ SCH (06:05)
--- NOTE | 2019-07-14 06:41 | Diag Imaging Result Doc PS360 ---
EXAM: CHEST-1 VIEW HISTORY: SOB TECHNIQUE: Single view COMPARISON: 07/12/2019 FINDINGS: No change in the left-sided chest tube or in the right jugular portacatheter. No pneumothorax identified. The small bilateral pleural effusions. There are infiltrates throughout the lungs. These are more prominent on the right. No cardiomegaly. IMPRESSION: Interval worsening Electronically signed by Oswaldo Walker 07/14/2019 6:39 AM
[2019-07-14 07:40] LABS: BASO# 0.03 X1000 (0.0-0.2); BASO% 0.2 % (0.0-0.8); EOS# 0.02 X1000 (0.0-0.7); EOS% 0.1 % (0.0-10.0); HEMATOCRIT 33.4 % (37.0-47.0); HEMOGLOBIN 9.9 g/dL (12.0-16.0); IMM GRAN# 0.09 X1000 (0.0-0.04); IMM GRAN% 0.6 % (0.0-0.5); LYMPH# 0.64 X1000 (1.2-3.4); LYMPH% 4.1 % (20.5-51.1); MCH 28.6 PG (27-31); MCHC 29.6 g/dL (33-37); MCV 96.5 FL (81-99); MONO# 0.65 X1000 (0.11-0.59); MONO% 4.2 % (1.7-9.3); MPV 9.7 FL (7.4-10.4); NEUT# 14.17 X1000 (1.4-6.5); NEUT% 90.8 % (42.2-75.2); PLT 354 X1000 (130-400); RBC 3.46 XMIL (4.2-5.4)
[2019-07-14 08:03] LABS: AGAP 13; BUN 7 mg/dL (8-22); CHLORIDE 101 mmol/L (98-107); COSMO 277; CREATININE 0.4 mg/dL (0.5-0.9); ESTIMATED GFR > 60; GLUCOSE 99 mg/dL (70-104); POTASSIUM 3.6 mmol/L (3.5-5.1); SODIUM 140 mmol/L (136-145); TCO2 26 mmol/L (25-35)
[2019-07-14] MEDS: ZYVOX 600 MG/D5W 600 MG/300 ML IVPB IV SCH ×2 (08:51→21:10)
[2019-07-14] MEDS: MS CONTIN PO SCH ×2 (08:52→21:10)
[2019-07-14] MEDS: MAXIPIME 2 GM/NS 2 GM/100 ML IVPB IV SCH ×2 (08:53→21:11)
[2019-07-14] MEDS: KLOR-CON POWDER PACKET PO SCH (08:53)
[2019-07-14] MEDS: PEPCID PO SCH (08:53)
[2019-07-14] MEDS: TOPROL XL PO SCH (08:54)
[2019-07-14] MEDS: NORVASC PO SCH (08:55)
[2019-07-14] MEDS: LASIX PO SCH (09:02)
[2019-07-14] MEDS: LYRICA PO SCH (09:03)
[2019-07-14] MEDS: MUCOMYST 20% INH SCH (11:49)
[2019-07-14] MEDS: SOLU-MEDROL IV SCH ×2 (13:15→21:10)
--- NOTE | 2019-07-14 14:51 | PROGRESS NOTE ---
DATE: 07/14/2019 SUBJECTIVE: No acute events overnight. This patient is no longer using a Ventimask. X-ray looks worse, but she is now on a nasal cannula and the white blood cell is trending down, she is feeling weak. The patient and the discussed the case with Dr. Dietz, has been offered some chemotherapy, but I do not know if the patient will want it, as per the patient probably tomorrow, if the blood pressure is not that low, I will go ahead and give her an extra dose of Lasix today in the afternoon. Case has been discussed with the patient and the by phone. OBJECTIVE: Vital Signs: Temperature 98.5 degrees, pulse 101, respiratory rate 16, blood pressure 99/63, oxygen saturation 95% on 2 L of nasal cannula. HEENT: Head normocephalic. No trauma. PERRLA. Neck: Supple. No JVD. No masses. Central trachea. Chest: Clear to auscultation. Decreased breath sounds globally with some crackles at the bases, some crepitus as well. Cardiovascular: RRR. Abdomen: Soft, nontender, nondistended. No hepatosplenomegaly. She has a left-sided PleurX catheter. Extremities: No edema, no clubbing, no cyanosis. Neurological examination: The patient is awake. She is alert. She is oriented. Generalized weakness. LABORATORY: WBC 15.6, hemoglobin 9.9, hematocrit 33.4, platelets 354,000. Sodium 140, potassium 3.6, chloride 101, bicarbonate 26, BUN 7, creatinine 0.4, glucose 99, calcium 9, albumin 2.4. ASSESSMENT AND PLAN: 1. Sepsis and acute hypoxemic respiratory failure due to bilateral multifocal pneumonia. She also has pulmonary edema and pleural effusion, metastatic disease. She has a PleurX catheter on the right on the left side. 2. Metastatic breast cancer with malignant pleural effusion, mediastinal lymphadenopathy with brain metastasis, it looks like she has been getting chemotherapy and radiotherapy, but apparently but radiotherapy has been discontinued due to esophagitis. 3. [id number] systolic congestive heart failure exacerbation with ejection fraction of 55%. Will monitor and continue with Lasix. 4. Chronic pain. Continue pain medication. 5. Disposition. We will monitor this patient closely. She is no longer on a Ventimask. She is tolerating the nasal cannula. The x-ray looks a bit worse. Hematology/Oncology Department and Pulmonary Department on board. Will continue with the same treatment for now. cc: Rusty Kapoor MD
[2019-07-14] MEDS ORDERED: LASIX IV ONE (16:00)
[2019-07-14] MEDS: MIRALAX PO SCH (17:10)
--- NOTE | 2019-07-14 18:43 | PROVIDER PROGRESS NOTE ---
Progress Note Dr. Fraser Progress Note/Pulmonary and or critical care Subjective: The patient is sitting in the bedside chair. She is on NC 2L and tolerates well. RT at the bedside is trying to weaning oxygen off after breathing treatment. Patient reports no complaint at this time. NO family at the bedside. Objective: Vital Signs: T 98.2 (No fever in last 24 hours), BP 104/63, MO 107, RR 19, and SaO2 100% on NC 2L. Physical Examination: General: In no acute distress. Very pleasant and cooperative. HEENT: Normocephalic. Trachea midline. PERRL. Chest: Even and unlabored. No increased work of breathing. Symmetrical excursion. Decreased air entry in right base with inspiratory crackles. Good air entry and clear to auscultation in the left side. Left-sided PleurX catheter with dressing on. CVS: Regular rate and rhythm with S1 and S2 appreciated. Abdomen: Normoactive bowel sounds present. Soft. Nontender. Nondistended. Extremities: No pedal edema. No cyanosis. No clubbing. Neuro: A/O x3. Speech fluent. Follow commands. Labs and Radiology: Laboratory Results 07/14/19 07/14/19 07/14/19 07:17 07:17 07:17 WBC 15.60 H RBC 3.46 L Hgb 9.9 L Hct 33.4 L MCV 96.5 MCH 28.6 MCHC 29.6 L RDW Std Deviation 16.0 H Plt Count 354 MPV 9.7 Immature Gran % (Auto) 0.6 H Neut % (Auto) 90.8 H Lymph % (Auto) 4.1 L [place] % (Auto) 4.2 Eos % (Auto) 0.1 Baso % (Auto) 0.2 Immature Gran # (Auto) 0.09 H Neut # (Auto) 14.17 H Lymph # (Auto) 0.64 L [place] # (Auto) 0.65 H Eos # (Auto) 0.02 Baso # (Auto) 0.03 Sodium 140 Potassium 3.6 Chloride 101 Carbon Dioxide 26 Anion Gap 13 BUN 7 L Creatinine 0.4 L Estimated GFR/1.73 m2 > 60 BUN/Creatinine Ratio 18 Glucose 99 Calculated Osmolality 277 Calcium 9.0 Qzl-M-Iycpzcrstco Pept 189 Albumin 07/14/19 07:17 WBC RBC Hgb Hct MCV MCH MCHC RDW Std Deviation Plt Count MPV Immature Gran % (Auto) Neut % (Auto) Lymph % (Auto) [place] % (Auto) Eos % (Auto) Baso % (Auto) Immature Gran # (Auto) Neut # (Auto) Lymph # (Auto) [place] # (Auto) Eos # (Auto) Baso # (Auto) Sodium Potassium Chloride Carbon Dioxide Anion Gap BUN Creatinine Estimated GFR/1.73 m2 BUN/Creatinine Ratio Glucose Calculated Osmolality Calcium Kfr-Y-Psavkpdgcxw Pept Albumin 2.4 L Assessment: Hypoxemic respiratory failure secondary to bilateral multifocal pneumonia and malignant pleural effusion. Stable. Bilateral multifocal pneumonia. CXR today shows interval worsening with small bilateral pleural effusions and infiltrates throughout the lungs Malignant pleural effusion with mediastinal lymphadenopathy secondary to metastatic breast cancer. s/p left-sided PleurX Catheter placement. Acute on chronic congestive heart failure, systolic. Leukocytosis with ongoing fevers. Fever resolved for 3 days. Leukocytosis c ontinuously improving. No plan to pull the port out at this time per General Surgery. Plan: Continue antibiotics including Linezolid (Day 8) and Cefepime (Day 12). Continue Micafungin (Day 7). Continue diuretics 40mg po daily. Extra dose of Lasix per Dr. Delcid. Continue bronchodilators. We are discontinuing Mucomyst. Weaning oxygen as tolerated. GI prophylaxis with Pepcid and DVT prophylaxis with Lovenox.
[2019-07-14] MEDS: MYCAMINE 100 MG in NS 100 ML IV SCH (21:11)
[2019-07-15] MEDS: SOLU-MEDROL IV SCH ×4 (02:00→22:03)
[2019-07-15] MEDS: DUONEB (A & A) INH SCH ×4 (03:40→21:14)
[2019-07-15] MEDS: LOVENOX SUBQ SCH (05:25)
[2019-07-15] MEDS: ZYVOX 600 MG/D5W 600 MG/300 ML IVPB IV SCH ×2 (08:26→22:03)
[2019-07-15] MEDS: MAXIPIME 2 GM/NS 2 GM/100 ML IVPB IV SCH ×2 (08:29→22:06)
[2019-07-15] MEDS: NORVASC PO SCH (08:30)
[2019-07-15] MEDS: PEPCID PO SCH (08:30)
[2019-07-15] MEDS: MS CONTIN PO SCH ×2 (08:30→22:06)
[2019-07-15] MEDS: LYRICA PO SCH (08:30)
[2019-07-15] MEDS: TOPROL XL PO SCH (08:30)
[2019-07-15] MEDS: LASIX PO SCH (08:30)
[2019-07-15] MEDS: MIRALAX PO SCH (08:31)
[2019-07-15] MEDS: KLOR-CON POWDER PACKET PO SCH (08:31)
[2019-07-15 10:22] LABS: EOS# 0.04 X1000 (0.0-0.7); EOS% 0.2 % (0.0-10.0); HEMATOCRIT 32.4 % (37.0-47.0); HEMOGLOBIN 9.7 g/dL (12.0-16.0); IMM GRAN# 0.09 X1000 (0.0-0.04); IMM GRAN% 0.6 % (0.0-0.5); LYMPH# 0.27 X1000 (1.2-3.4); LYMPH% 1.7 % (20.5-51.1); MCH 28.8 PG (27-31); MCHC 29.9 g/dL (33-37); MCV 96.1 FL (81-99); MONO# 0.08 X1000 (0.11-0.59); MONO% 0.5 % (1.7-9.3); MPV 9.4 FL (7.4-10.4); NEUT# 15.54 X1000 (1.4-6.5); PLT 408 X1000 (130-400); RBC 3.37 XMIL (4.2-5.4); RDW 15.9 % (11.5-14.5); WBC 16.02 X1000 (4.8-10.8)
[2019-07-15 11:05] LABS: BANDS 4 % (0-1); LYMPHS 2 % (21-51); SEGS 94 % (42-75)
[2019-07-15 11:32] LABS: AGAP 10; BUN 10 mg/dL (8-22); CALCIUM 8.7 mg/dL (8.8-10.2); CHLORIDE 98 mmol/L (98-107); COSMO 271; CREATININE 0.4 mg/dL (0.5-0.9); ESTIMATED GFR > 60; GLUCOSE 172 mg/dL (70-104); SODIUM 134 mmol/L (136-145); TCO2 26 mmol/L (25-35)
--- NOTE | 2019-07-15 17:04 | PROGRESS NOTE ---
DATE: 07/15/2019 SUBJECTIVE: This patient seems to be feeling better today compared with yesterday, blood pressure seems to be stable, her oxygen saturation is good at 2 L of nasal cannula. We will continue with physical therapy. She seems to be tolerating a little bit of food. OBJECTIVE: Vital Signs: Temperature 97.6 degrees, pulse 96, respiratory rate 18, blood pressure 110/72 oxygen saturation 100% on 2 L of nasal cannula. HEENT: Head normocephalic, no trauma. PERRLA. Neck: Supple. No JVD. No masses. Central trachea. Chest: Decreased breath sounds mostly at the bases, with crackles at the bases, especially on the left side. Abdomen: Soft, nontender, nondistended. No hepatosplenomegaly. Extremities: No edema, no clubbing, no cyanosis. Neurological: The patient is awake, alert, and oriented x3. No focal deficits. LABORATORY: WBC 16, hemoglobin 9.7, hematocrit 32.4, platelets 408,000. Sodium 134, potassium 4, chloride 98, bicarbonate 26, BUN 10, creatinine 0.4, glucose 172, calcium 8.7. ASSESSMENT AND PLAN: 1. Sepsis and acute hypoxemic respiratory failure due to bilateral multifocal pneumonia, pulmonary edema and pleural effusion, metastatic disease. She has a PleurX catheter on the right side, we will continue with same management. She is getting Lasix. She is getting antibiotics and antifungal medication, pulmonary department on board. I will get a new x-ray tomorrow. 2. Metastatic breast cancer with malignant pleural effusion, mediastinal lymphadenopathy with brain metastasis, it looks like she has been getting chemotherapy and radiotherapy, but apparently radiotherapy has been discontinued due to esophagitis. 3. Acute on chronic systolic congestive heart failure exacerbation with an ejection fraction of 55%. We will monitor. She is on Lasix. 4. Chronic pain. Continue pain medication. 5. Disposition. We will continue to monitor the patient closely. She used to be on a Ventimask, but now she is tolerating the nasal cannula. I will continue with physical therapy, but I need this patient to eat a little bit more. I will repeat the x-ray tomorrow to see how she does. cc: Rusty Kapoor MD
--- NOTE | 2019-07-15 18:45 | PROVIDER PROGRESS NOTE ---
Progress Note Dr. Fraser Progress Note/Pulmonary and or critical care Subjective: The patient is lying in the bed. She is on NC 1L and tolerates well. Patient reports no complaint at this time. Patients at the bedside. Objective: Vital Signs: T 97.8 (No fever in last 24 hours), BP 115/77, NE 99, RR 18, and SaO2 99% on NC 1L. Physical Examination: General: In no acute distress. Very pleasant and cooperative. HEENT: Normocephalic. Trachea midline. Mucosa pink and moist. PERRL. Chest: Even and unlabored. No increased work of breathing. Symmetrical excursion. Decreased air entry in right base with inspiratory crackles. Good air entry and clear to auscultation in the left side. Left-sided PleurX catheter with dressing on. CVS: Regular rate and rhythm with S1 and S2 appreciated. Abdomen: Normoactive bowel sounds present. Soft. Nontender. Nondistended. Extremities: No pedal edema. No cyanosis. No clubbing. Neuro: A/O x3. Speech fluent. Follow commands. Labs and Radiology: Laboratory Results 07/15/19 07/15/19 09:51 09:51 WBC 16.02 H RBC 3.37 L Hgb 9.7 L Hct 32.4 L MCV 96.1 MCH 28.8 MCHC 29.9 L RDW Std Deviation 15.9 H Plt Count 408 H MPV 9.4 Immature Gran % (Auto) 0.6 H Neut % (Auto) 97.0 H Lymph % (Auto) 1.7 L [place] % (Auto) 0.5 L Eos % (Auto) 0.2 Baso % (Auto) 0.0 Immature Gran # (Auto) 0.09 H Neut # (Auto) 15.54 H Lymph # (Auto) 0.27 L [place] # (Auto) 0.08 L Eos # (Auto) 0.04 Baso # (Auto) 0.00 Segmented Neutrophils 94 H Band Neutrophils 4 H Lymphocytes 2 L Sodium 134 L Potassium 4.0 Chloride 98 Carbon Dioxide 26 Anion Gap 10 BUN 10 Creatinine 0.4 L Estimated GFR/1.73 m2 > 60 BUN/Creatinine Ratio 25 Glucose 172 H D Calculated Osmolality 271 Calcium 8.7 L Assessment: Hypoxemic respiratory failure secondary to bilateral multifocal pneumonia and malignant pleural effusion. Improved. Patient tolerates NC 1L. Bilateral multifocal pneumonia +/- pneumonitis. Malignant pleural effusion with mediastinal lymphadenopathy secondary to metastatic breast cancer. s/p left-sided PleurX Catheter placement. Acute on chronic congestive heart failure, systolic. Leukocytosis with ongoing fevers. Fever resolved. Leukocytosis slightly elevated today secondary to IV Solu-Medrol. Plan: Continue antibiotics including Linezolid (Day 9) and Cefepime (Day 13). Continue Micafungin (Day87). Continue diuretics 40mg po daily. Continue bronchodilators. Weaning oxygen as tolerated. GI prophylaxis with Pepcid and DVT prophylaxis with Lovenox. We added Solu-Medrol 60 mg q6h yesterday to cover potential chemotherapy- associated pneumonitis.
[2019-07-15] MEDS: MYCAMINE 100 MG in NS 100 ML IV SCH (22:04)
[2019-07-16] MEDS: SOLU-MEDROL IV SCH ×2 (02:19→08:43)
[2019-07-16] MEDS: DUONEB (A & A) INH SCH ×3 (03:35→16:03)
[2019-07-16] MEDS: LOVENOX SUBQ SCH (05:47)
[2019-07-16 08:12] LABS: BASO# 0.01 X1000 (0.0-0.2); BASO% 0.1 % (0.0-0.8); HEMATOCRIT 34.1 % (37.0-47.0); HEMOGLOBIN 10.1 g/dL (12.0-16.0); IMM GRAN# 0.05 X1000 (0.0-0.04); IMM GRAN% 0.3 % (0.0-0.5); LYMPH# 0.25 X1000 (1.2-3.4); LYMPH% 1.3 % (20.5-51.1); MCH 28.9 PG (27-31); MCHC 29.6 g/dL (33-37); MCV 97.7 FL (81-99); MONO# 0.14 X1000 (0.11-0.59); MONO% 0.8 % (1.7-9.3); MPV 9.6 FL (7.4-10.4); NEUT# 18.13 X1000 (1.4-6.5); NEUT% 97.5 % (42.2-75.2); PLT 432 X1000 (130-400); RBC 3.49 XMIL (4.2-5.4); RDW 16.2 % (11.5-14.5); WBC 18.58 X1000 (4.8-10.8)
[2019-07-16 08:27] LABS: AGAP 12; BUN 12 mg/dL (8-22); CALCIUM 9.1 mg/dL (8.8-10.2); CHLORIDE 103 mmol/L (98-107); COSMO 281; CREATININE 0.4 mg/dL (0.5-0.9); ESTIMATED GFR > 60; GLUCOSE 138 mg/dL (70-104); POTASSIUM 4.4 mmol/L (3.5-5.1); SODIUM 140 mmol/L (136-145); TCO2 25 mmol/L (25-35)
[2019-07-16 08:40] LABS: ANISOCYTOSIS 2+; HYPOCHROM 1+; LYMPHS 2 % (21-51); MONO 1 % (1-9); SEGS 97 % (42-75)
[2019-07-16 08:41] LABS: LARGE PLATELETS OCCASIONAL
[2019-07-16] MEDS: LYRICA PO SCH (08:42)
[2019-07-16] MEDS: ZYVOX 600 MG/D5W 600 MG/300 ML IVPB IV SCH (08:42)
[2019-07-16] MEDS: MS CONTIN PO SCH (08:42)
[2019-07-16] MEDS: TOPROL XL PO SCH (08:42)
[2019-07-16] MEDS: PEPCID PO SCH (08:42)
[2019-07-16] MEDS: NORVASC PO SCH (08:42)
[2019-07-16] MEDS: LASIX PO SCH (08:43)
[2019-07-16] MEDS: MIRALAX PO SCH (08:43)
[2019-07-16] MEDS: KLOR-CON POWDER PACKET PO SCH (08:43)
--- NOTE | 2019-07-16 09:54 | Diag Imaging Result Doc PS360 ---
EXAM: CHEST-2 VIEWS 07/16/2019 HISTORY: hypoxia TECHNIQUE: PA and lateral chest COMMENT: There is blunting of both costophrenic angles. Compared to 07/14/2019 the lungs are better expanded and there is less apparent opacity in the lower lung bella. IMPRESSION: Improved pulmonary edema. Bilateral pleural effusions more so on the right than the left. Electronically signed by Zhou Colon 07/16/2019 9:52 AM
[2019-07-16] MEDS: MAXIPIME 2 GM/NS 2 GM/100 ML IVPB IV SCH (11:02)
[2019-07-16 11:03] VITALS: BP 125/84
[2019-07-16] MEDS ORDERED: SOLU-MEDROL IV SCH (17:00)
--- NOTE | 2019-07-16 17:34 | PROVIDER PROGRESS NOTE ---
Progress Note Dr. Fraser Progress Note/Pulmonary and or critical care Subjective: The patient is sitting in the bedside chair. She is on NC 1L and tolerates well. We take oxygen off at this time and ask RT to check on her later to make sure she tolerates room air. Patient reports no complaint at this time. Patients at the bedside. Objective: Vital Signs: T 97.3 (No fever in last 24 hours), BP 125/80, MO 95, RR 18, and SaO2 100% on NC 1L. Physical Examination: General: In no acute distress. Very pleasant and cooperative. HEENT: Normocephalic. Trachea midline. Mucosa pink and moist. PERRL. Chest: Even and unlabored. No increased work of breathing. Symmetrical excursion. Decreased air entry in right base with inspiratory crackles. Good air entry and clear to auscultation in the left side. Left-sided PleurX catheter with dressing on. CVS: Regular rate and rhythm with S1 and S2 appreciated. Abdomen: Normoactive bowel sounds present. Soft. Nontender. Nondistended. Extremities: No pedal edema. No cyanosis. No clubbing. Neuro: A/O x3. Speech fluent. Follow commands. Labs and Radiology: Laboratory Results 07/16/19 07/16/19 07:35 07:35 WBC 18.58 H RBC 3.49 L Hgb 10.1 L Hct 34.1 L MCV 97.7 MCH 28.9 MCHC 29.6 L RDW Std Deviation 16.2 H Plt Count 432 H MPV 9.6 Immature Gran % (Auto) 0.3 Neut % (Auto) 97.5 H Lymph % (Auto) 1.3 L [place] % (Auto) 0.8 L Eos % (Auto) 0.0 Baso % (Auto) 0.1 Immature Gran # (Auto) 0.05 H Neut # (Auto) 18.13 H Lymph # (Auto) 0.25 L [place] # (Auto) 0.14 Eos # (Auto) 0.00 Baso # (Auto) 0.01 Segmented Neutrophils 97 H Lymphocytes 2 L Monocytes 1 Hypochromia 1+ Large Platelets OCCASIONAL Anisocytosis 2+ Macrocytosis 2+ Sodium 140 Potassium 4.4 Chloride 103 Carbon Dioxide 25 Anion Gap 12 BUN 12 Creatinine 0.4 L Estimated GFR/1.73 m2 > 60 BUN/Creatinine Ratio 30 Glucose 138 H Calculated Osmolality 281 Calcium 9.1 Assessment: Hypoxemic respiratory failure secondary to bilateral multifocal pneumonia and malignant pleural effusion. Improved. Patient tolerates NC 1L. Bilateral multifocal pneumonia +/- pneumonitis. Malignant pleural effusion with mediastinal lymphadenopathy secondary to metastatic breast cancer. s/p left-sided PleurX Catheter placement. Acute on chronic congestive heart failure, systolic. Leukocytosis, likely secondary to IV Solu-Medrol. No fever. Plan: Continue antibiotics including Linezolid (Day 10) and Cefepime (Day 14). Continue Micafungin (Day 9). Continue diuretics 40mg po daily. Continue bronchodilators. Weaning oxygen as tolerated. GI prophylaxis with Pepcid and DVT prophylaxis with Lovenox. We are weaning steroid down. 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
--- NOTE | 2019-07-16 19:22 | DISCHARGE SUMMARY ---
ADMISSION DATE: 07/03/2019 DISCHARGE DATE: 07/16/2019 PRIMARY CARE PHYSICIAN: Dr. Malcolm Hinds. CONSULTATION: With Oncology, Pulmonology, General Surgery. ADMISSION DIAGNOSES: 1. Respiratory failure and pneumonia. 2. Metastatic breast cancer. 3. Hypertension and congestive heart failure. 4. Pleural effusion. DISCHARGE DIAGNOSES: 1. Sepsis and acute hypoxemic respiratory failure due to bilateral multifocal pneumonia, pulmonary edema, pleural effusion and metastatic disease improved. 2. Metastatic breast cancer with malignant pleural effusion, mediastinal lymphadenopathy with brain metastasis. 3. Acute on chronic systolic congestive heart failure exacerbation with ejection fraction of 55%. 4. Chronic pain. SUMMARY OF FINDINGS: This is a 59-year-old female who is followed by Dr. Dietz undergoing treatment with Avastin and had her treatment a week prior to arrival. She has a grade 2 infiltrating ductal carcinoma, progesterone receptor positive, came in with shortness of breath, found to be hypoxic, struggling to breathe, had a productive cough with yellow sputum but no fever, chills or night sweats. Her last chemo treatment was 3 days prior to arrival. Her O2 saturations were 77%. She was tachycardic. Her PE CT scan was negative for a PE. It did show some small effusions, nodules, worsening lytic lesions, multifocal patchy infiltrate so most likely was a pneumonia that could be related to her cancer. She was admitted, placed on antibiotics, was not felt to be septic at that time, her EF on her most recent echocardiogram showed 25 to 30 percent but that was in 2018. She had an echocardiogram in August that showed ejection fraction of 50% with a grade 1 diastolic dysfunction. She was admitted, again we consulted Oncology, Pulmonology, placed on antibiotics, O2. She has a PleurX catheter, pulmonology followed her through this hospitalization. Her O2 saturation was 94% on 1.5 L. Her chest x-ray on 07/16/2019 shows improved pulmonary edema, bilateral pleural effusions more so on the right than the left. It is now felt that she can safely be discharged home with home O2. She will also have home health. DISCHARGE MEDICATIONS: Include amlodipine 10 mg p.o. daily, Augmentin 875/125 one p.o. q.12 hours #8 with no refills, doxycycline 100 mg p.o. b.i.d. #8 with no refills, famotidine 20 mg p.o. daily, Lasix 40 mg p.o. daily, methocarbamol 750 mg p.o. p.r.n., Medrol Dosepak to take as directed, metoprolol 25 mg p.o. daily, morphine 30 mg 1 p.o. q.12 hours, oxycodone 5 mg per 5 mL 1 p.o. q.6 hours p.r.n., MiraLAX 17 g p.o. daily, potassium 20 mEq p.o. daily, Pregabalin 75 mg p.o. daily and nasal spray saline p.r.n. FOLLOWUP: Her appointments are with her oncologist Dr. Dietz on 07/20/2019 at 10 a.m., with her primary care physician on 07/21/2019 at 12 p.m. She will need to call and schedule appointment with General Surgery. She will have home health and home O2. All discharge instructions have been reviewed with the patient and she verbalized understanding. TIME SPENT: 35 minutes. Dictated by MICHEAL Gonsalez for Rusty Kapoor MD cc: MD Rusty Maxwell MD
== END 2019-07-16 17:09 | disposition home health service (06) | DRG 871 ==
LOC: ED 13:49 → SUATTDRO 20:20 → 3N 20:20
PROVIDERS: ATTEND Internal Medicine

== ENCOUNTER 2019-08-24 12:34 | Inpatient (IN) ==
--- NOTE | 2019-08-24 14:52 | Diag Imaging Result Doc PS360 ---
EXAM: CHEST-PORTABLE 08/24/2019 HISTORY: dyspnea TECHNIQUE: AP portable upright at [id number] COMMENT: There are large bilateral pleural effusions. This has worsened since 07/16/2019. There is ill-defined parenchymal opacity in both lung bases obscuring the heart borders. This was not the case previously. IMPRESSION: Worsened pleural effusions and pulmonary edema. Electronically signed by Zhou Colon 08/24/2019 2:50 PM
--- NOTE | 2019-08-24 16:41 | PROVIDER DOCUMENTATION ---
This chart was entered by Rossy Cruz Scribe, acting as scribe for Pema Franco CRNP. HPI-Respiratory General - General Source: patient - History of Present Illness-Resp Quality of Pain: reports: tightness Severity in ED: reports: mild Onset/Duration: reports: this morning Timing: reports: still present Cough Quality/Degree: reports: no cough Current Respiratory Medication Therapy: Initiated see nurses note Modifying Factors: improves with: nothing Associated Symptoms: reports: shortness of breath. denies: cough Similar Symptoms Previously?: No Recently seen or treated by another doctor?: Yes (was seen at Dr. Villarreal's office this morning) <Pema Franco - Last Filed: 08/24/19 18:24> <West Ascencio - Last Filed: 08/24/19 18:29> - General Chief Complaint: Shortness of Breath Stated Complaint: SOB Time Seen by Provider: 08/24/19 12:55 Allergies/Adverse Reactions: Patient Allergies Allergy/AdvReac Type Severity Reaction Status Date / Time adhesive tape Allergy Intermediate blisters Verified 07/03/19 14:20 skin Home Medications: Home Medication List Medication Instructions Recorded Confirmed Last Taken Type Metoprolol Succinate E.r. [Toprol 25 mg PO DAILY #60 tablet 01/10/17 07/03/19 07/03/19 Rx Xl] Amlodipine Besylate 1 tab PO DAILY 07/03/19 07/03/19 07/03/19 History Famotidine [Pepcid] 1 tab PO DAILY 07/03/19 07/03/19 07/03/19 History Methocarbamol [Robaxin-750] 1 tab PO PRN PRN 07/03/19 07/03/19 07/03/19 History Morphine E.r. [Ms Contin] 1 tab PO Q12H 07/03/19 07/03/19 07/03/19 09:00 History Oxycodone HCl 1 dose PO Q6H PRN PRN 07/03/19 07/03/19 07/02/19 History Potassium Chloride Powder Pkt 1 dose PO DAILY 07/03/19 07/03/19 07/03/19 History [Klor-Con Powder Packet] Pregabalin 1 tab PO DAILY 07/03/19 07/03/19 07/03/19 History Amoxicillin/Potassium Clav 1 ea PO Q12H #8 tab 07/16/19 Unknown Rx [Augmentin 875-125 Tablet] Doxycycline 100 mg PO BID #8 tab 07/16/19 Unknown Rx Furosemide [Lasix] 40 mg PO DAILY #90 tab 07/16/19 Unknown Rx Methylprednisolone [Medrol Dosepak] 4 mg PO DIRECTED #1 pkg 07/16/19 Unknown Rx Polyethylene Glycol 3350 [Miralax] 17 gm PO DAILY powder, packet 07/16/19 Unknown Rx Saline Nasal Campbell [Custer Nasal 1 ml INTRANASAL PRN PRN bottle 07/16/19 Unknown Rx Campbell] - History of Present Illness-Resp Nature of Presenting Problem: [id number] presents to ED cc SOB and low o2(in the 70's on room air) since having Chemo treatment at Dr. Villarreal's office this morning. Dr. Coates sent pt to ED for further evaluation & to have a CXR. She has hx of CHF, Breast cancer and is on chemo 1x week. She is on 2 liters home o2. Pt denies CP/cough/N/V/D. She is mildly tachypneic upon exam. (Pema Franco) Review of Systems - Adult - REVIEW OF SYSTEMS - ADULT Constitutional: reports: see HPI. denies: chills, fever, fatique Eyes: reports: no symptoms reported Ears, Nose, Mouth & Throat: reports: no symptoms reported Cardiovascular: reports: see HPI. denies: chest pain Respiratory: reports: see HPI, shortness of breath. denies: cough Gastrointestinal: reports: see HPI. denies: diarrhea, nausea, vomiting Genitourinary: reports: no symptoms reported Musculoskeletal: reports: no symptoms reported Integumentary: reports: no symptoms reported Neurological: reports: no symptoms reported Psychiatric: reports: no symptoms reported Endocrine: reports: no symptoms reported Hematologic/Lymphatic: reports: no symptoms reported Allergic/Immunologic: reports: no symptoms reported All Other Systems: Reviewed and Negative <Pema Franco - Last Filed: 08/24/19 18:24> Past History - Adult - PAST MEDICAL HISTORY-ADULT Review of Records: reports: Nursing Assessment Review, Medications Reviewed, Social history reviewed & non-contributory. Major Childhood Illnesses: reports: denies history Cardiovascular: reports: HTN Respiratory: reports: other (lung CA) Gastrointestinal: reports: denies history Obstetrical/Gynecological: reports: denies history Genitourinary: reports: denies history Musculoskeletal: reports: denies history Neurological: reports: denies history Psychiatric: reports: denies history Endocrine/Immune: reports: denies history Other Conditions: reports: denies history Additional History: Breast CA - IMMUNIZATION STATUS Childhood Immunizations: See Nurse Assessment Flu Vaccine: See Nurse Assessment - FAMILY HISTORY Family History: reviewed, not pertinent < C. - Last Filed: 08/24/19 18:24> Physical Exam-General - PHYSICAL EXAM-ADULT Initial Vital Signs Reviewed: Yes - CONSTITUTIONAL General Appearance: alert, mild distress. negative: anxious, combative - EYES Eyes: PERRL/EOMI, pink conjunctivae. negative: photophobia - HEAD, EARS, NOSE, MOUTH & THROAT HENMT: normocephalic/atraumatic, moist mucous membranes. negative: angioedema - NECK Neck: non-tender, full range of motion, supple, normal inspection. negative: C- spine tenderness - RESPIRATORY Respiratory: chest non-tender, normal breath sounds, wheezing (expiratory wheezing at Mid left lobe), other (tachypneic). negative: crackles, rales - CARDIOVASCULAR Cardiovascular: normal peripheral pulses, regular rate, rhythm. negative: bradycardia, tachycardia - GASTROINTESTINAL (ABDOMEN) Abdominal Exam: normal bowel sounds, non tender, soft, other (thoradex drain in left side abdomen with dressing applied and no visible drainage). negative: guarding, rebound - LYMPHATIC Lymphatic: no adenopathy. negative: enlargement - MUSCULOSKELETAL Back Exam: normal inspection, no CVA tenderness, no vertebral tenderness Extremity: normal gait, no pedal edema, no calf tenderness, normal capillary refill, swelling (mild to left forearm), other (port a cath to right upper chest with dressing and no visible drainage). negative: deformity - SKIN Integumentary: normal color, warm/dry. 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 negative: anxious < C. - Last Filed: 08/24/19 18:24> Progress - PLAN OF CARE/RESULTS Result Diagrams: 08/24/19 17:02 08/24/19 17:02 - REASSESSMENT Reassessment #1 Time Reassessed: 15:00 Status: unchanged (spoke with Dr. Dietz about patient chest x-ray results) Reassessment #2 Time Reassessed: 16:39 Status: unchanged (updated patient on POC and notification of Dr. Dietz and will admit patient to hospital) - XRAY 1 XRAY: Bilateral XRAY Study: Chest Impression: See EMR Report (IMPRESSION: Worsened pleural effusions and pulmonary edema. Electronically signed by Zhou Colon 08/24/2019 2:50 PM) - CT/MRI 1 CT Study: other (Chest) Impression: See EMR Report (IMPRESSION: Worsened atelectasis and pleural effusion on the right. Electronically signed by Zhou Colon 08/24/2019 6:14 PM) - CONSULTS/PCP/HOSPITALIST Notification #1 *Consult/PCP/Hospitalist*: Dr. Villarreal Time Discussed: 15:06 Consult Disposition: other (advised to get labs on pt & CT of chest with IV contrast and to admit patient to hospitalist) #2 Consult: [place]/DOPE WORKER Time Discussed: 18:24 Consult Disposition: Admit - CHANGE OF SHIFT REPORT (ED Provider) 1 Report Given and Care Transferred to:: MICHEAL Norman Time of Transfer: 17:06 Items Pending: Labs, CT/MRI Results <Pema Franco - Last Filed: 08/24/19 18:24> - PLAN OF CARE/RESULTS Result Diagrams: 08/24/19 17:02 08/24/19 17:02 - CONSULTS/PCP/HOSPITALIST Notification #3 Consult: DR. Shoemaker Time Discussed: 18:25 Consult Disposition: Admit <[place] Ascencio - Last Filed: 08/24/19 18:29> - PLAN OF CARE/RESULTS Progress/Plan/Lab Results: Vital Signs - 8 hr 08/24/19 12:37 Temperature 97.6 F Pulse Rate 99 H Respiratory Rate 22 Blood Pressure 119/86 O2 Sat by Pulse Oximetry 100 Laboratory Results - last 24 hr 08/24/19 08/24/19 08/24/19 17:02 17:02 17:02 WBC 15.18 H RBC 3.80 L Hgb 10.8 L Hct 36.6 L MCV 96.3 MCH 28.4 MCHC 29.5 L RDW Std Deviation 17.1 H Plt Count 391 MPV 9.9 Immature Gran % (Auto) 0.9 H Neut % (Auto) 95.8 H Lymph % (Auto) 2.2 L Sutter % (Auto) 0.7 L Eos % (Auto) 0.1 Baso % (Auto) 0.3 Immature Gran # (Auto) 0.13 H Neut # (Auto) 14.56 H Lymph # (Auto) 0.34 L Sutter # (Auto) 0.10 L Eos # (Auto) 0.01 Baso # (Auto) 0.04 PT 12.7 INR 0.95 PTT (Actin FS) 60.0 H Sodium 137 Potassium 4.4 Chloride 99 Carbon Dioxide 26 Anion Gap 12 BUN 6 L Creatinine 0.3 L Estimated GFR/1.73 m2 > 60 BUN/Creatinine Ratio 20 Glucose 133 H Calculated Osmolality 273 Calcium 9.1 Total Bilirubin 0.24 AST 25 ALT 16 Alkaline Phosphatase 134 H Total Protein 6.1 L Albumin 3.4 L Globulin 2.7 Albumin/Globulin Ratio 1.3 Orders Category Date Time Status CHEST-PORTABLE [RAD] Stat Exams 08/24/19 14:[address] THORAX W/CONTRAST [CT] Stat Exams 08/24/19 15:08 Completed CBC WITH DIFF [HEME] Stat Lab 08/24/19 17:02 Completed COMPREHENSIVE METABOLIC PANEL [CHEM] Stat Lab 08/24/19 17:02 Completed PROTIME WITH INR [COAG] Stat Lab 08/24/19 17:02 Completed PTT [COAG] Stat Lab 08/24/19 17:02 Completed Patient agrees with POC rendered today. (Pema Franco) Departure - Departure Date of Disposition Decision: 08/24/19 Time of Disposition Decision: 18:24 Certified Medical Emergency: Emergent - Critical Care Note This patient required my direct & personal management of CC.: No <Pema Franco - Last Filed: 08/24/19 18:24> <[place] Ascencio - Last Filed: 08/24/19 18:29> - Departure DIAGNOSIS: Pleural effusion, Pleural effusion, bilateral Cancer of right female breast Qualifiers: Breast location: unspecified site of breast Estrogen receptor status: unspecified Qualified Code(s): C50.911 - Malignant neoplasm of unspecified site of right female breast Disposition: ADMITTED INPATIENT 09 Condition: Stable Referrals and Follow-Ups: Malcolm Hinds MD [Primary Care Provider] - Attestation - Physician/ JODY Attestation Patient care was provided by Advanced Practice Provider:: Yes Advanced Practice Provider:: Pema Franco Advanced Practice Provider documentation review:: The Mid-level provider documentation, treatment plan and medical decision making was reviewed by the physician who agrees with all treatment and medical decision making by the MLP. The physician spent face to face time with patient:: No Advanced Practice Provider documentation review:: Supervising physician onsite and consulted in the evaluation and care of this patient. The physician did not have a face to face encounter with the patient. <Pema Franco - Last Filed: 08/24/19 18:24> This chart was documented by the indicated scribe, (Rossy Cruz Scribe) and accurately reflects the services I performed and decisions made by me, Pema Franco CRNP, as attested by the provider's signature.
[2019-08-24 17:21] LABS: BASO# 0.04 X1000 (0.0-0.2); BASO% 0.3 % (0.0-0.8); EOS# 0.01 X1000 (0.0-0.7); EOS% 0.1 % (0.0-10.0); HEMATOCRIT 36.6 % (37.0-47.0); HEMOGLOBIN 10.8 g/dL (12.0-16.0); IMM GRAN# 0.13 X1000 (0.0-0.04); IMM GRAN% 0.9 % (0.0-0.5); LYMPH# 0.34 X1000 (1.2-3.4); LYMPH% 2.2 % (20.5-51.1); MCH 28.4 PG (27-31); MCHC 29.5 g/dL (33-37); MCV 96.3 FL (81-99); MONO% 0.7 % (1.7-9.3); MPV 9.9 FL (7.4-10.4); NEUT# 14.56 X1000 (1.4-6.5); NEUT% 95.8 % (42.2-75.2); PLT 391 X1000 (130-400); RDW 17.1 % (11.5-14.5); WBC 15.18 X1000 (4.8-10.8)
[2019-08-24 17:39] LABS: INR 0.95; PROTIME 12.7 Seconds (11.0-16.0)
[2019-08-24 17:43] LABS: AGAP 12; ALB/GLOB RATIO 1.3; ALBUMIN 3.4 g/dL (3.5-5.0); ALKALINE PHOSPHATASE 134 U/L (32-104); BUN 6 mg/dL (8-22); CALCIUM 9.1 mg/dL (8.8-10.2); CHLORIDE 99 mmol/L (98-107); COSMO 273; CREATININE 0.3 mg/dL (0.5-0.9); ESTIMATED GFR > 60; GLUCOSE 133 mg/dL (70-104); GOT 25 U/L (10-30); GPT 16 U/L (10-36); POTASSIUM 4.4 mmol/L (3.5-5.1); SODIUM 137 mmol/L (136-145); TCO2 26 mmol/L (25-35); TOTAL BILIRUBIN 0.24 mg/dL (0.20-1.00); TOTAL PROTEIN 6.1 g/dL (6.3-8.3)
--- NOTE | 2019-08-24 18:17 | Diag Imaging Result Doc PS360 ---
EXAM: CT THORAX W/CONTRAST 08/24/2019 HISTORY: pleural effusion TECHNIQUE: This exam was performed using automated exposure control, adjustment of mA or kV according to patient size, and/or use of iterative reconstruction technique. COMMENT: The current study is compared with the previous examination of 07/03/2019. The volume of pleural fluid on the right has increased. There is worsened atelectasis or pneumonia in the right upper lobe. There is a chest tube on the left. There is worsened atelectasis in the right middle and lower lobes. There are numerous nodular opacities in both lungs. This was also the case previously. IMPRESSION: Worsened atelectasis and pleural effusion on the right. Electronically signed by Zhou Colon 08/24/2019 6:14 PM
[2019-08-24] MEDS ORDERED: OXY IR PO PRN (22:21)
[2019-08-24] MEDS ORDERED: MAXIPIME 1 GM in NS 50 ML IV SCH (22:45)
--- NOTE | 2019-08-24 23:43 | EKG Report ---
Test Performed on : 08/24/2019 10:49:10 PM Test Reason : SOB,chest pain Blood Pressure : / mmHG Vent. Rate : 105 BPM Atrial Rate : 105 BPM P-R Int : 144 ms QRS Dur : 082 ms QT Int : 404 ms P-R-T Axes : 021 -25 153 degrees QTc Int : 533 ms Sinus tachycardia. Low voltage QRS Inferior infarct , age undetermined Cannot rule out Anterior infarct , age undetermined T wave abnormality, consider lateral ischemia Prolonged QT Abnormal ECG When compared with ECG of 03-JUL-2019 14:02, (Unconfirmed) QRS voltage has decreased Inferior infarct is now present Inverted T waves have replaced nonspecific T wave abnormality in Lateral leads Confirmed by Erica PANCHAL, Rafy Rogers ([id number]) on 08/28/2019 3:33:56 PM
[2019-08-25] MEDS: ZOSYN 3.375 GM in NS 50 ML IV SCH ×5 (00:28→22:52)
[2019-08-25] MEDS: MS CONTIN PO SCH ×3 (00:29→22:52)
[2019-08-25] MEDS ORDERED: TYLENOL PO PRN (03:57)
--- NOTE | 2019-08-25 06:46 | HISTORY AND PHYSICAL ---
PRIMARY CARE PROVIDER: Dr. Malcolm Hinds. ONCOLOGIST: Dr. Jesse Dietz. DATE AND TIME: 08/24/2019 at 2015. CHIEF COMPLAINT: Hypoxemia. HISTORY OF PRESENT ILLNESS: Ms. Soria is a 59-year-old female who is currently being treated for metastatic breast cancer. She has had recent complications of a recurrent malignant pleural effusion for which she has had a left-sided PleurX catheter placed. She is currently receiving chemotherapy at this time, though has previously received radiation as well. The patient reports that she was at Dr. Dietz's office today to receive her chemotherapy treatment. She states that she had felt a little more short of breath than normal prior to her treatment, though during her treatment, she did become more short of breath. They did check her oxygen saturation levels, which were low. According to the ER note, they were reportedly in the high 70s. The patient was sent to the ER for further evaluation. The patient reports that she does have frequent shortness of breath but this has been worse over the past day or so. She denies any cough, she denies any fever, body aches, or chills. The patient does report pain. She states this pain is in the center of her chest and right breast. She reports the pain is tight in nature. The patient states that she has this pain frequently. This is where she normally has pain for which she takes pain medication. She states this is not of new onset. The pain is the same it has been and has not worsened. She denies any abdominal pain, any nausea, vomiting, or diarrhea. She denies any hematochezia or melena. The patient reports that she has had a recent bowel movement. She denies any dysuria or urinary frequency. She states that she has felt as though she has had a little swelling in her extremities, especially in her right ankle, though patient did not have any obvious swelling or edema noted upon examination. She is alert and oriented to person, place, time, and situation. Upon evaluation in the ER, patient's initial vital signs were temperature 97.6 degrees, heart rate 99, respirations 22, blood pressure is 119/86 with oxygen saturation of 100% on nasal cannula at 4 L. The patient does normally wear oxygen at home, nasal cannula at 2 L. At this time, this has been increased to 4 L. Since the increase her oxygen saturations have maintained in the high 90s. Chest x-ray did show worsened pleural effusions and pulmonary edema. They did perform a CT thorax with contrast which did show worsened atelectasis and pleural effusions on the right. The patient reports that she does empty her PleurX catheter at home and that it is scheduled to be emptied this evening. She does report some orthopnea, but denied any paroxysmal nocturnal dyspnea. She also denies any known recent antibiotic use other than when she was discharged from the hospital on 07/16/2019. She did have some leukocytosis noted with a white blood cell count of 15,180. She denies any fever, body aches, or chills. She denies cough, though does report slightly worsened shortness of breath. Her CT did show that there is worsened atelectasis and/or pneumonia in the right upper lobe. Given this, we will go ahead and obtain blood cultures and sputum culture and we will place her on antibiotic of Zosyn at this time until we rule out possible pneumonia as well. She will be placed inpatient admission for further treatment and evaluation. PAST MEDICAL HISTORY: 1. Metastatic breast cancer, status post bilateral mastectomy, currently undergoing chemotherapy, followed by Dr. Dietz. 2. History of brain metastasis status post radiation therapy. 3. Congestive heart failure. 4. Hypertension. 5. Recurrent malignant pleural effusion status post left-sided PleurX catheter placement. PAST SURGICAL HISTORY: 1. Bilateral mastectomy. 2. Hysterectomy. 3. Placement of left-sided PleurX catheter. SOCIAL HISTORY: The patient is a former smoker. She states that she did smoke cigarettes for a period of 20 years, though quit over 20 years ago. She did previously report some occasional alcohol use but denies this at present. She denied any illicit drug use. FAMILY HISTORY: Positive for her mother and father both having a history of diabetes mellitus and her mother had a history of heart disease. ALLERGIES: Patient reports allergies to adhesive tape. HOME MEDICATIONS: 1. Amlodipine 10 mg p.o. daily. 2. Pepcid 20 mg p.o. daily. 3. Lasix 40 mg p.o. daily. 4. Losartan 100 mg p.o. daily. 5. Toprol-XL 50 mg p.o. daily. 6. MS Contin 15 mg p.o. q.12 hours. 7. Oxycodone 10 mg p.o. q.6 hours p.r.n. 8. Potassium chloride 20 mEq p.o. daily. DIAGNOSTIC DATA/LABORATORY RESULTS: White blood cell count is 15,180, hemoglobin 10.8, hematocrit is 36.6, platelet count 391,000. PT 12.7, INR 0.9, PTT is 60. Sodium 137, potassium 4.4, chloride 99, serum bicarb 26, BUN 6, creatinine 0.3, GFR greater than 60, glucose 133, calcium 9.1. Liver function tests within normal limits except for alkaline phosphatase elevated at 134. CK 48. Troponin TI sensitivity 79. EKG showed sinus tachycardia with a T-wave abnormality, consider lateral ischemia and a prolonged QT. She had a rate of 105 with a QTc of 533. The patient does have a prolonged QT. When compared to previous EKG in June 2019, there does not appear to be any acute ST changes. On the comparison EKG and EKG performed in the ER, there is some artifact noted as well. Portable chest x-ray showed worsening pleural effusions and pulmonary edema. This is per Radiology. CT thorax with contrast showed that the volume of pleural fluid on the right has increased. There is worsened atelectasis or pneumonia in the right upper lobe. There is a chest tube on the left. There is worsened atelectasis in the right middle lobe and right lower lobe. There are numerous nodular opacities in both lungs. This was also noted on the previous CT as well. The radiologist's impression is worsened atelectasis and pleural effusion on the right. PHYSICAL EXAMINATION: VITAL SIGNS: Temperature 97.6 degrees, heart rate 104, respirations 19, blood pressure 133/95, oxygen saturation is 100% per nasal cannula at 4 L. GENERAL: Ms. Soria is a pleasant 59-year-old -[place] female. She was resting in the ER stretcher. She was in no acute distress. She was awake, alert, and able to answer questions appropriately. HEENT: Head is atraumatic, normocephalic. Pupils are equal, round, reactive to light, were 3 mm bilaterally and brisk. Oral mucosa is moist. Oropharynx is clear. NECK: Supple, trachea midline. CARDIOVASCULAR: Patient has S1-S2 present. No murmurs, gallops, rubs appreciated. Regular rate and rhythm. PULMONARY: Patient has symmetrical chest expansion bilaterally. Lung sounds on the left were clear in upper lung bella though slightly diminished in the left lower lung bella. Lung sounds in the right lung bella were diminished throughout, but this was worse in the right lung base. ABDOMEN: Soft, nontender, nondistended. Bowel sounds are present in all 4 quadrants, were normoactive. EXTREMITIES: No cyanosis or edema noted. Pulse, motor, and sensory were intact in all extremities. Radial and pedal pulses were 2+ bilaterally. INTEGUMENTARY: The patient's skin color is normal for her race, is dry and intact. NEUROLOGICAL: Patient is alert and oriented to person, place, situation. No focal neurological deficits noted. ASSESSMENT AND PLAN: 1. Acute hypoxic respiratory failure. This is likely secondary to the patient's worsening pleural effusions. There is a possibility of underlying pneumonia as well. The patient has responded with increase of her oxygen therapy from her usual nasal cannula at 2 L to 4 L at this time. We will continue to monitor this closely. The patient was due to have her PleurX catheter drained this evening. This has been performed by the patient's nurse. Reportedly, she did have approximately 350 mL of pleural fluid drained from her PleurX catheter, which was noted to be a arndt yellowish color in appearance that was clear. The patient states this has been the usual appearance of her pleural fluid and this is not changed. 2. Bilateral pleural effusions. The patient does have a history of having recurrent left malignant pleural effusion. She has had a PleurX catheter placed, though now is having worsening right pleural effusions. We have placed a consult with Dr. Dietz, her oncologist. We will await his evaluation and further recommendations. The patient may need a pulmonology consult as well. 3. Rule out possible pneumonia. We have placed the patient on antibiotic coverage with Zosyn at this time. Blood cultures and sputum culture have been obtained. We will continue with aggressive pulmonary toilet with frequent encouragement to turn, cough and deep breathe, incentive spirometry and p.r.n. DuoNeb treatments. 4. Metastatic breast cancer, currently receiving chemotherapy with Dr. Dietz. As mentioned above, we have placed a consult with Dr. Dietz. We will await his evaluation and further recommendations for management. 5. Elevated troponin. The patient's troponin was elevated at 79. She was reporting some pain in the center of her chest and right breast area though patient states this pain is not of new onset. This is the pain that she usually has and it has not worsened or changed in nature. We will continue with the series of cardiac enzymes. We will order repeat EKG in the morning. We will continue to monitor closely. She will be on continuous cardiac telemetry. 6. History of hypertension. The patient does take antihypertensive medications though has had blood pressures that have been running on the low side of normal. Given this, we will hold these medications for this evening. We will monitor her blood pressure closely and implement antihypertensives as necessary. 7. History of congestive heart failure. We will continue her Lasix 20 mg p.o. daily. As mentioned above, we are holding her antihypertensive medications at this time. 8. Venous thromboembolism (VTE) prophylaxis. We provided her with Lovenox 40 mg subcutaneously q.24 hours. The patient has been placed on the medical floor with telemetry. She will have vital q.4 hours. We will do strict intake and output. For this evening, she will be on a clear liquid diet. Once her respiratory status improved, she can likely be placed back on her regular diet. We will repeat a CBC, BMP in the morning as well as a series of cardiac enzymes. Further orders and recommendations pending hospital course, diagnostic studies, and physician evaluation. Dictated by MICHEAL Camarillo for Garrison Mabry MD I have performed a face to face diagnostic evaluation. Labs/xrays reviewed. Exam- Chest- rhonchi, CV- regular A/P- Acute Respiratory Failure, suspected pneumonia.- Admit, supplemental oxygen, check blood culture, IV ABX. Dr. Mabry. cc: Garrison Mabry MD [facility]
--- NOTE | 2019-08-25 07:48 | EKG Report ---
Test Performed on : 08/25/2019 07:20:32 AM Test Reason : Elevated Troponin Blood Pressure : / mmHG Vent. Rate : 101 BPM Atrial Rate : 101 BPM P-R Int : 138 ms QRS Dur : 076 ms QT Int : 394 ms P-R-T Axes : 012 -18 184 degrees QTc Int : 510 ms Sinus tachycardia. Low voltage QRS Cannot rule out Anterior infarct (cited on or before 24-AUG-2019) T wave abnormality, consider inferolateral ischemia Abnormal ECG When compared with ECG of 24-AUG-2019 22:49, (Unconfirmed) Inverted T waves have replaced nonspecific T wave abnormality in Inferior leads Confirmed by Erica PANCHAL, Rafy Rogers ([id number]) on 08/25/2019 9:37:46 AM
[2019-08-25 08:01] LABS: BASO% 0.6 % (0.0-0.8); HEMATOCRIT 34.4 % (37.0-47.0); HEMOGLOBIN 10.3 g/dL (12.0-16.0); LYMPH# 0.48 X1000 (1.2-3.4); LYMPH% 2.7 % (20.5-51.1); MCH 29.2 PG (27-31); MCHC 29.9 g/dL (33-37); MCV 97.5 FL (81-99); MONO# 0.96 X1000 (0.11-0.59); MONO% 5.3 % (1.7-9.3); MPV 10.5 FL (7.4-10.4); NEUT# 16.46 X1000 (1.4-6.5); NEUT% 91.4 % (42.2-75.2); PLT 383 X1000 (130-400); RBC 3.53 XMIL (4.2-5.4); RDW 17.2 % (11.5-14.5)
[2019-08-25 08:07] LABS: AGAP 11; BUN 7 mg/dL (8-22); CALCIUM 8.9 mg/dL (8.8-10.2); CHLORIDE 100 mmol/L (98-107); CK PROFILE 41 U/L (24-173); COSMO 277; CREATININE 0.4 mg/dL (0.5-0.9); ESTIMATED GFR > 60; GLUCOSE 91 mg/dL (70-104); POTASSIUM 4.3 mmol/L (3.5-5.1); SODIUM 140 mmol/L (136-145); TCO2 29 mmol/L (25-35)
[2019-08-25] MEDS: DUONEB (A & A) INH PRN (08:07)
[2019-08-25] MEDS: PEPCID PO SCH (08:38)
[2019-08-25] MEDS: LASIX PO SCH (08:38)
[2019-08-25] MEDS ORDERED: LOVENOX SUBQ SCH (09:00)
[2019-08-25 09:46] LABS: BANDS 6 % (0-1); LYMPHS 6 % (21-51); MONO 6 % (1-9); SEGS 82 % (42-75)
[2019-08-25 09:47] LABS: HYPOCHROM 1+
[2019-08-25] MEDS ORDERED: LASIX IV ONE (15:47)
--- NOTE | 2019-08-25 17:04 | PROGRESS NOTE ---
DATE: 08/25/2019 INTERVAL HISTORY: Ms. Soria was admitted for acute hypoxic respiratory failure and bilateral pleural effusion. She did not have any other acute overnight events. She is sitting in the chair at the time of my evaluation. She does not appear in significant respiratory distress. REVIEW OF SYSTEMS: Negative for chest pain. Positive for shortness of breath on exertion. Negative for nausea. Negative for vomiting. Negative for abdominal pain. VITALS: Temperature 97.9 degrees, pulse 100, respiratory rate 24, blood pressure of 93/64. She is saturating 100% on 4 L nasal cannula. Input and output not charted properly. PHYSICAL EXAMINATION: Oral cavity is moist. She does not have any hair.Lungs: Air entry adequate on left hemithorax where she had a PleurX catheter, significantly decreased breath sounds on the right hemithorax. Cardiovascular: S1, S2 normal. No murmur or gallop. Abdomen: Soft, nontender. Chest: She has a right-sided chest port. Extremities: She has mild bilateral lower extremity edema. Neurological: She is alert and oriented x3. LABS: Has WBC 18,000, hemoglobin 10.3, platelet 383,000. BUN is 7, creatinine 0.4. Her troponin was downtrending from 79 to 48. Blood cultures are in lab. IMAGING: Chest CT yesterday had atelectasis and pleural effusion on the right. ASSESSMENT AND PLAN: 1. Acute hypoxic respiratory failure due to atelectasis and predominantly right-sided lung pleural effusion. This is likely malignant. I could not see any definitive consolidation except some opacities which looked old. I will continue her on intravenous Zosyn for now and give intravenous Lasix. Continue inhaled bronchodilators. Ultrasound-guided thoracentesis has been ordered by oncology team as per patient's request. I will also consult Pulmonology team. 2. Right lung multifocal pneumonia. The patient did not have any fever though she has been tachycardic and has leukocytosis. I will monitor CBC. Considering her volume overload and effusions, I will not give her intravenous fluids for suspected sepsis. Follow up final blood culture data. 3. Metastatic breast cancer with bone and brain metastasis, status post brain radiation in the past and currently on chemotherapy. She is status post left PleurX catheter for left malignant pleural effusion. Her right effusion could also be most likely malignant. Oncology team planning outpatient therapy. 4. Others. History of hypertension, congestive heart failure and elevated troponin on presentation. Continue metoprolol, losartan, amlodipine with holding parameters. She is on home Lasix as well. 5. Others. Continue morphine and oxycodone for chronic cancer-related pain and enoxaparin has been held for DVT prophylaxis since she is going for thoracentesis tomorrow. DISPOSITION: I had a detailed discussion about her care with the patient and her family on the phone. We did discuss several options including ultrasound-guided thoracenteses, PleurX catheter placement, surgical approach with pleurodesis and PleurX catheter placement. I also had a discussion about her care with oncologist and the plan is to get 1 time thoracenteses done with the hope that the pleural effusion would not recur or at least recur rapidly as the chemotherapy kicked in and then manage it outpatient. The patient was updated about this plan. cc: Gunner Cooley MD
--- NOTE | 2019-08-25 17:09 | HEMO/ONC CONSULTATION ---
DATE: 08/25/2019 ADMITTING PHYSICIAN: Dr. Rafy Maldonado. REQUESTING PHYSICIAN: Dr. Rafy Maldonado. We appreciate this consult. CHIEF COMPLAINT: Metastatic breast cancer. HISTORY OF PRESENT ILLNESS: Ms. Soria is a pleasant, 59-year-old female, well known to Dr. Dietz with a history of recurrent metastatic breast cancer with new malignant pleural effusions, mediastinal lymphadenopathy, and brain metastasis. The patient completed 9 fractions of radiation therapy with Dr. Fitzgerald to the whole brain and to T10 and T11. The patient is currently receiving Taxotere and is status post cycle 3, day 8 on August 24, 2019. The day of the patient's last chemotherapy she was noted to be slightly more dyspneic. She does have a history of malignant pleural effusion with a PleurX cath on the left, which the patient drains herself. The patient was sent for chest x-ray for evaluation of worsening shortness of breath and was found to have large bilateral pleural effusions. Right-sided pleural effusion was new. Additionally, pulmonary edema was seen. It was decided that the patient would be admitted to [facility] per Hospitalist. PAST MEDICAL HISTORY: 1. Recurrent metastatic breast cancer with malignant pleural effusions, mediastinal lymphadenopathy, and brain metastasis. 2. Congestive heart failure. 3. Hypertension. PAST SURGICAL HISTORY: 1. Bilateral mastectomy. 2. Hysterectomy. 3. Port placement. 4. Left-sided PleurX catheter placed. SOCIAL HISTORY: The patient has a history of smoking cigarettes for approximately 20 years and quit smoking 20 years ago. She does not use alcohol or illicit drugs. FAMILY HISTORY: Negative for any hematologic or oncologic disease. MEDICATIONS ON ADMISSION: 1. Amlodipine. 2. Pepcid. 3. Lasix. 4. Losartan. 5. Toprol-XL. 6. MS Contin. 7. Oxycodone. 8. Potassium chloride. ALLERGIES: Adhesive tape. REVIEW OF SYSTEMS: A 14 point review of systems was obtained and is negative except for mentioned in HPI. PHYSICAL EXAMINATION: General: Ms. Soria is a very pleasant, 59-year-old female lying supine in bed, in no immediate distress. Vital Signs: Temperature 98.6, blood pressure 97/59, heart rate 111, respirations are 24, O2 saturation 98% on 4 L nasal cannula O2. HEENT: Normocephalic, atraumatic. Mucous membranes slightly pale and moist. Sclera is anicteric. Extraocular movements intact. Neck: Supple. Lungs: With decreased breath sounds in bases. CV: S1, S2 is heard. No murmurs, rubs, or gallops. Abdomen: Nondistended. Extremities: Without clubbing, cyanosis, or edema. Dermatologic: No rashes, bruises, or lesions. Neurologic: The patient is awake, alert, and oriented x3. She is slightly slow to respond. She has no overt focal deficits. LABORATORY DATA: Hemoglobin 10.3, hematocrit 34.4, white blood cell count is 18,000, Plt is 16,460. Sodium 140, potassium 4.3, chloride 100, CO2 is 29, BUN 7, creatinine 0.4, glucose is 91, calcium 8.9. Troponins are 48. CK is 41. IMAGING STUDIES: Chest x-ray reveals large bilateral pleural effusions with pulmonary edema. CT of the chest reveals worsened atelectasis and pleural effusion on the right. ASSESSMENT AND PLAN: 1. Recurrent metastatic breast cancer with left malignant pleural effusion and new right pleural effusion, as well as mediastinal lymphadenopathy and brain metastasis. The patient is status post radiation therapy to whole-brain and T10, T11 with Dr. Fitzgerald. Additionally, she is currently on Taxotere and is status post cycle 3, day 8 on 08/23/2020. We will hold treatment until the patient's acute illness improves. 2. New large right pleural effusion. We will obtain an ultrasound-guided thoracentesis at this time with cytology performed on pleural fluid. 3. Acute hypoxemic respiratory failure secondary to #1 and questionable underlying pneumonia. The patient is currently on antibiotics. She is wearing oxygen per nasal cannula. Additionally, the patient will undergo a thoracentesis of large right pleural effusion. The patient does have a PleurX catheter to drain left pleural effusion. 4. Elevated troponins. The patient does report chest pain. Serial cardiac enzymes are pending. EKG is pending. The patient is wearing telemetry. 5. Hypertension. Well controlled on current antihypertensives. 6. Congestive heart failure. The patient continues on Lasix 20 mg daily. Would continue to monitor. 7. Deep vein thrombosis/pulmonary embolism prophylaxis. The patient continues on Lovenox 40 mg daily subcutaneously. 8. We will follow along with you and make further recommendations pending outcomes. The above reflects the history, exam, assessment, and plan of Dr. Dietz. Dictated by MICHEAL Cox for Jesse Dietz MD cc: MICHEAL Cox MD [facility]
[2019-08-26] MEDS: ZOSYN 3.375 GM in NS 50 ML IV SCH ×2 (05:39→11:39)
--- NOTE | 2019-08-26 08:54 | Diag Imaging Result Doc PS360 ---
EXAM: CHEST-2 VIEWS INDICATION: Post thoracentesis TECHNIQUE: 2 views COMPARISON: 08/24/2019 FINDINGS: The left chest tube and right central venous chest port are in stable positions. The right pleural effusion has decreased in size of the result of the recent thoracentesis. There is no evidence of pneumothorax postthoracentesis. The left pleural effusion also appears to have decreased slightly during the interval. Opacities at both lung bases most consistent with edema have improved slightly and there is better aeration at both lung bases. No new consolidation is identified. Cardiac silhouette is stable. IMPRESSION: Interval improvement as described with no evidence of pneumothorax status post right thoracentesis. Electronically signed by Isra Stevenson 08/26/2019 8:51 AM
[2019-08-26] MEDS ORDERED: MS CONTIN PO SCH (09:00)
[2019-08-26] MEDS: DUONEB (A & A) INH PRN (09:00)
[2019-08-26] MEDS ORDERED: TOPROL XL PO SCH (09:00)
[2019-08-26] MEDS ORDERED: COZAAR PO SCH (09:00)
[2019-08-26] MEDS ORDERED: NORVASC PO SCH (09:00)
[2019-08-26 09:12] VITALS: BP 93/65
[2019-08-26] MEDS: LASIX PO SCH (09:14)
[2019-08-26] MEDS: PEPCID PO SCH (09:14)
--- NOTE | 2019-08-26 09:41 | Diag Imaging Result Doc PS360 ---
EXAM: US THORACENTESIS W/IMAGE GUIDE INDICATION: Right pleural effusion TECHNIQUE: COMPARISON: None. FINDINGS: Risks, benefits, and alternatives were discussed with the patient and informed consent was obtained. The patient was prepped and draped in sterile fashion and local anesthesia was achieved with 1% lidocaine solution. Using ultrasound guidance, a large bore catheter was inserted into the right pleural space and 1200 mL of straw-colored serous fluid was aspirated. There were no known complications. A postprocedural chest radiograph showed no pneumothorax. IMPRESSION: Technically successful ultrasound-guided right thoracentesis. Electronically signed by Isra Stevenson 08/26/2019 9:39 AM
--- NOTE | 2019-08-26 14:21 | HEMO/ONC PROGRESS NOTE ---
DATE: 08/26/2019 ADMITTING PHYSICIAN: Dr. Rafy Maldonado. CHIEF COMPLAINT: " I would like to go home." HISTORY OF PRESENT ILLNESS: Ms. Soria is a very pleasant, 59-year-old female well known to Dr. Dietz with a history of metastatic breast cancer. The patient was admitted secondary to bilateral pleural effusion. She does have a PleurX catheter on the left. She underwent thoracentesis, ultrasound-guided on the right. That was positive for 1200 mL of straw-colored serous fluid. Cytology is currently pending. The patient reports that she is feeling much better at this time and wishes to go home. PHYSICAL EXAMINATION: Vital Signs: Temperature 98.2 degrees, blood pressure 93/65, heart rate 103, respirations 20, O2 saturation 100% on 4 L nasal cannula O2. CV: S1, S2. Lungs: Clear to auscultation with some decreased breath sounds in the bases. Abdomen: Nondistended. Extremities: No clubbing, cyanosis, or edema. LABORATORY DATA: Hemoglobin 10.3, hematocrit 34.4, white blood cell count is 18,000, platelet count 383,000. Sodium 140, potassium 4.3, chloride 100, CO2 is 29, BUN 7, creatinine 0.4, and glucose is 91. ASSESSMENT AND PLAN: 1. Recurrent metastatic breast cancer with left malignant pleural effusion, status post PleurX catheter. The patient is status post Taxotere cycle 3, day 8. We will schedule the patient's next dose of chemotherapy upon discharge. 2. New large right pleural effusion, status post ultrasound-guided thoracentesis productive of 1200 mL of straw-colored serous fluid. Cytology is pending. 3. Acute hypoxemic respiratory failure secondary to #1 and 2. The patient is much better status post thoracentesis. 4. Elevated troponin. Serial cardiac enzymes pending. 5. Hypertension. Blood pressure well controlled on antihypertensive. 6. Congestive heart failure. The patient continues on Lasix with improvement. 7. Would agree with discharge when patient is stable. We will follow along with you and make further recommendations pending outcomes. The above reflects the history, exam, assessment, and plan of Dr. Dietz. Dictated by MICHEAL Cox for Jesse Dietz MD cc: MICHEAL Cox MD [facility]
--- NOTE | 2019-08-26 15:18 | DISCHARGE SUMMARY ---
ADMISSION DATE: 08/24/2019 DISCHARGE DATE: 08/26/2019 DISCHARGE DISPOSITION: Home. DISCHARGE CONDITION: Hemodynamically stable. She is breathing at 99% on 2 L nasal cannula. She just underwent thoracenteses, which she tolerated well. DISCHARGE DIAGNOSES: 1. Acute on chronic hypoxic respiratory failure. 2. Right-sided lung pleural effusion, likely malignant. 3. Suspected right lung multifocal patchy pneumonia. 4. Metastatic breast cancer. 5. Sepsis due to right-sided lung multifocal pneumonia. OTHER DIAGNOSES: 1. History of metastatic breast cancer with now bilateral malignant pleural effusions, brain metastasis, status post radiation and newly developing mediastinal adenopathy. 2. History of malignant left pleural effusion status post PleurX catheter. 3. History of essential hypertension. 4. History of bilateral mastectomy. 5. Hysterectomy. DISCHARGE MEDICATIONS: 1. Amlodipine 10 mg daily. 2. Losartan 100 mg daily. 3. Morphine extended release 15 mg every 12 hours. 4. Oxycodone 10 mg every 6 hours. 5. Famotidine 20 mg daily. 6. Metoprolol succinate extended release 50 mg daily. 7. Furosemide 40 mg daily. 8. Levaquin 500 mg daily, 5 tablets. VITALS: At the time of discharge temperature is 98.2 degrees, pulse 105, respiratory rate 16, blood pressure 93/65, saturating 99% on 2 L nasal cannula at the time of my evaluation. PHYSICAL EXAMINATION: Oral cavity is moist. Ms. Soria is not in any acute distress, sitting in the chair. Diminished air entry in right lung base with inspiratory crackles, however, improved after thoracentesis. Adequate air entry on left hemithorax. No wheeze, rhonchi, or crackles on the left. S1, S2 normal. Regular. Tachycardic. No murmur or gallop. She has a right-sided chest port. She has a left-sided chest PleurX catheter. Abdomen is soft, nontender. She has mild bilateral lower extremity edema. She is alert and oriented x3. LABS AT THE TIME OF HOSPITAL ADMISSION AND DISCHARGE: WBC 18,000, hemoglobin 10.3, platelet 383,000. BUN is 7, creatinine 0.4. Troponin on presentation was 79, which was improving to 33 at the time of discharge. Her cytology report after thoracentesis has been pending. Microbiology: Blood culture did not have any growth. IMAGING DURING HOSPITAL ADMISSION: Chest CT on August 23 had worsened atelectasis and pleural effusion on the right side. Chest x-ray on August 25 after thoracenteses had interval improvement without any pneumothorax. PROCEDURE DURING HOSPITAL ADMISSION: On August 25 patient underwent ultrasound- guided right thoracentesis with about 1,200 mL of straw-colored serous fluid aspirated. Electrocardiogram during hospital admission had sinus tachycardia, low voltage QRS, inferior infarct--age undetermined, cannot rule out anterior infarct age undetermined, T- wave abnormality consider lateral ischemia, prolonged QT. CONSULTATION DURING HOSPITAL ADMISSION: 1. Radiology. 2. Oncology, Dr. Dietz. HOSPITAL COURSE SUMMARY: Ms. Soria is a 59-year-old, -[place] lady with past medical history of metastatic breast cancer with malignant effusions, mediastinal lymphadenopathy and brain metastasis, who had previously completed brain radiation and currently has been on Taxotere, status post cycle 3, day 8 on 08/24/2019, who was at her oncologist's office where she was found to be more dyspneic, so she was sent to the emergency room for further evaluation. In the emergency room, she was found to have a temperature of 97.6 degrees, pulse of 99, respiratory rate of 22, blood pressure of 119/86, and her oxygen saturation was 100% on 4 L. However, patient was in respiratory distress and her WBC was 15,000. CT scan of the chest had suggested worsening right-sided pleural effusion, which was worse than the previous imaging she had in June 2019, so she was admitted for further management. The patient was started on empiric antibiotics and intravenous Lasix. It was thought that her right-sided pleural effusion was likely malignant and she underwent thoracentesis on August 25 which she tolerated without any complications. Noticeably, patient previously had left pleural effusions for which she had required left PleurX catheter at [facility] and she continues to drain PleurX catheter at home. At the time of discharge, her blood cultures remain negative so she will be discharged on oral Levaquin to complete remaining 5-day course of antibiotics and have outpatient followup with oncologist. She was also advised to establish care with a lung doctor, Dr. Fraser. Plan of care was discussed with the patient as well as her family on the phone. They were allowed to ask questions. All of their questions have been answered. 35 minutes were spent in discharging this patient. cc: Gunner Cooley MD [facility]
== END 2019-08-26 14:29 | disposition home health service (06) | DRG 597 ==
LOC: ED 12:34 → 3N 22:13 → SUATTDRO 22:13
PROVIDERS: ATTEND Internal Medicine